=== PATIENT | male | born 1945 | race Caucasian/White ===

== ENCOUNTER 2017-07-11 09:36 | Inpatient (IN) | payer OTHER ==
[2017-07-11 14:21] VITALS: BMI 27.4
--- NOTE | 2017-07-11 14:56 | HP ---
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,seeking detox,withdrawal symptom ,last treatment 06/19 in [place] history of htn,hypercholestolemia,hepatitis c treated anxiety,depression longest period of sobriety 9 months Exam Limitations: No Limitations - Ebola screening Have you traveled outside of the country in the last 21 days: No (N) Have you had contact with anyone from an Ebola affected area: No Have you been sick,other than usual withdrawal symptoms: No Do you have a fever: No - Review of Systems Constitutional: Loss of Appetite, Malaise, Night Sweats, Changes in sleep, Weakness EENT: reports: No Symptoms Reported Respiratory: reports: No Symptoms reported Cardiac: reports: No Symptoms Reported GI: reports: Nausea, Poor Appetite, Abdominal cramping : reports: No Symptoms Reported Musculoskeletal: reports: Back Pain, Muscle Pain Integumentary: reports: Dryness Neuro: reports: Headache, Tremors Endocrine: reports: No Symptoms Reported Hematology: reports: No Symptoms Reported Psychiatric: reports: Anxious, Depressed Patient History - Patient Medical History Hx Anemia: No Hx Asthma: No Hx Chronic Obstructive Pulmonary Disease (COPD): No Hx Cancer: No Hx Cardiac Disorders: No Hx Congestive Heart Failure: No Hx Hypertension: Yes (on med) Hx Hypercholesterolemia: Yes (on med) Hx Pacemaker: No HX Cerebrovascular Accident: No Hx Seizures: No Hx Dementia: No Hx Diabetes: No Hx Gastrointestinal Disorders: No Hx Liver Disease: Yes (hepatitis c) Hx Genitourinary Disorders: No Hx Sexually Transmitted Disorders: No Hx Renal Disease (ESRD): No Hx Thyroid Disease: No Hx Human Immunodeficiency Virus (HIV): No (never been tested,wouild like to have test done) Hx Hepatitis C: Yes (treated) Hx Depression: Yes (anxiety) Hx Suicide Attempt: No Hx Bipolar Disorder: No Hx Schizophrenia: No Other Medical History: no suicidal,no homicidal - Patient Surgical History Hx Cardiac Surgery: Yes (ablation for tachycardia at [facility]) Hx Cholecystectomy: Yes (lap 05/20 at [facility]) Other Surgical History: back surgery last 2013,implanted device for nerve stimulation for back pain - PPD History Previous Implant?: Yes Documented Results: Negative w/o proof Implanted On Prior [facility] Admission?: No PPD to be Administered?: Yes - Smoking Cessation Smoking history: Never smoked Have you smoked in the past 12 months: No - Substance & Tx. History Hx Alcohol Use: No Hx Substance Use: Yes Substance Use Type: Tranquilizers Hx Substance Use Treatment: Yes (06/19 in [place]) - Substances Abused Benzodiazepine (Klonopin) Route: Oral Frequency: Daily Amount used: 1.5mg Age of first use: 63 Date of Last Use: 07/11/17 Family Disease History - Family Disease History Family History: Denies Admission Physical Exam S - Vital Signs Vital Signs: Vital Signs - 24 hr 07/11/17 14:18 Temperature 97.9 F Pulse Rate 81 Respiratory 18 Rate Blood Pressure 104/63 - Physical General Appearance: Yes: Moderate Distress, Tremorous, Irritable, Sweating, Anxious HEENTM: Yes: Normal ENT Inspection, AMBAR, Pharynx Normal Respiratory: Yes: Lungs Clear, Normal Breath Sounds, No Respiratory Distress Neck: Yes: Within Normal Limits, Supple, Trachea in good position Breast: Yes: Within Normal Limits Cardiology: Yes: Within Normal Limits (a/p ablation for tachycardia), Regular Rhythm, Regular Rate Abdominal: Yes: Normal Bowel Sounds, Non Tender, Flat, Soft, Organomegaly Genitourinary: Yes: Within Normal Limits Back: Yes: Normal Inspection, Muscle Spasm Musculoskeletal: Yes: full range of Motion, Back pain, Muscle Pain Extremities: Yes: Within Normal Limits, Tremors Neurological: Yes: swimming pool cleaner II-XII NML intact, Fully Oriented, Alert, Motor Strength 5/5 Integumentary: Yes: Dry Lymphatic: Yes: Within Normal Limits - Diagnostic (1) Uncomplicated sedative, hypnotic or anxiolytic withdrawal Current Visit: Yes Status: Acute (2) Hypertension Current Visit: Yes Status: Acute (3) Hypercholesterolemia Current Visit: Yes Status: Acute (4) Anxiety and depression Current Visit: Yes Status: Acute (5) History of laparoscopic cholecystectomy Current Visit: Yes Status: Acute (6) History of cardiac radiofrequency ablation Current Visit: Yes Status: Acute (7) History of back surgery Current Visit: Yes Status: Acute Cleared for Admission [facility] - Detox or Rehab [facility] Level of Care: Medically Managed Detox Regimen/Protocol: Librium (patient will be on librium regiment reduced dose) [facility] Breath Alcohol Content Breath Alcohol Content: 0 Urine Drug Screen - Results Drug Screen Negative: No Urine Drug Screen Results: BZO-Benzodiazepines
[2017-07-11] MEDS ORDERED: MAGNESIUM HYDROX 2400MG/30ML ORAL SUSPENSION 30 ML CUP PO PRN (16:11)
[2017-07-11] MEDS ORDERED: MAG HYDROX/AL HYDROX/SIMETH 30 ML UNIT-DOSE CUP PO PRN (16:11)
[2017-07-11] MEDS ORDERED: LOPERAMIDE HCL 2 MG CAPSULE PO PRN (16:11)
[2017-07-11] MEDS ORDERED: ACETAMINOPHEN 325 MG TABLET (FP) PO PRN (16:11)
[2017-07-11] MEDS ORDERED: MAGNESIUM CITRATE 300 ML BOTTLE PO PRN (16:11)
[2017-07-11] MEDS ORDERED: guaiFENesin/D-METHORPHAN HB 10 ML UNIT-DOSE CUPS PO PRN (16:11)
[2017-07-11] MEDS ORDERED: IBUPROFEN 400 MG TABLET (FP) PO PRN (16:11)
[2017-07-11] MEDS ORDERED: MENTHOL/PHENOL 1 EACH UD MM PRN (16:11)
[2017-07-11] MEDS ORDERED: P-EPHED 60MG/TRIPROLIDI 2.5MG TABLET PO PRN (16:11)
[2017-07-11] MEDS: chlordiazePOXIDE HCL 25 MG CAPSULE PO SCH ×2 (18:14→22:39)
[2017-07-11] MEDS: THIAMINE HCL 100 MG TABLET (FP) PO SCH (22:39)
[2017-07-12 05:09] LABS: URINE APPEARANCE CLEAR; URINE BILIRUBIN NEGATIVE (NEGATIVE); URINE BLOOD NEGATIVE (NEGATIVE); URINE COLOR YELLOW; URINE GLUCOSE (UA) NEGATIVE (NEGATIVE); URINE KETONE NEGATIVE (NEGATIVE); URINE LEUK ESTERASE NEGATIVE (NEGATIVE); URINE NITRITE NEGATIVE (NEGATIVE); URINE PROTEIN NEGATIVE (NEGATIVE); URINE UROBILINOGEN NEGATIVE mg/dL (0.2-1.0)
[2017-07-12] MEDS: chlordiazePOXIDE HCL 25 MG CAPSULE PO SCH ×4 (06:20→22:24)
[2017-07-12 10:18] LABS: CHLORIDE 106 mmol/L (98-107); POTASSIUM 3.8 mmol/L (3.5-5.1); SODIUM 143 mmol/L (136-145)
[2017-07-12 10:23] LABS: HEMATOCRIT 34.4 % (35.4-49); HEMOGLOBIN 11.4 GM/dL (11.7-16.9); MCH 27.2 pg (25.7-33.7); MCHC 33.1 g/dl (32.0-35.9); MEAN CELL VOLUME 82.2 fl (80-96); MEAN PLT VOLUME 8.9 fl (7.5-11.1); PLATELET COUNT 153 K/MM3 (134-434); RBC 4.19 M/mm3 (4.00-5.60); RDW 14.4 % (11.9-15.9); WHITE BLOOD COUNT 7.9 K/mm3 (4.0-10.0)
--- NOTE | 2017-07-12 10:24 | PN ---
S CIWA - CIWA Score Nausea/Vomitin Muscle Tremors: 3 Anxiety: 3 Agitation: 2 Paroxysmal Sweats: 1-Minimal Palms Moist Orientation: 0-Oriented Tacttile Disturbances: 1-Very Mild Itch/Numbness Auditory Disturbances: 1-Very Mild Visual Disturbances: 0-None Headache: 2-Mild CIWA-Ar Total Score: 16 BHS Progress Note (SOAP) Subjective: ALERT,IRRITABLE,ANXIOUS,INTERRUPTED SLEEP,TREMOR Objective: 07/12/17 10:22 Vital Signs Temperature 98.4 F 07/12/17 10:00 Pulse Rate 83 07/12/17 10:00 Respiratory Rate 20 07/12/17 10:00 Blood Pressure 126/76 07/12/17 10:00 O2 Sat by Pulse Oximetry (%) NSR WITH SINUS ARRHYTHMIA,OCCASIONAL VPC NO CHEST PAIN,NO SOB,NO DIZZINESS 07/12/17 10:23 Laboratory Last Values Sodium 143 mmol/L (136-145) 07/12/17 08:00 Potassium 3.8 mmol/L (3.5-5.1) 07/12/17 08:00 Chloride 106 mmol/L (98-107) 07/12/17 08:00 Urine Color Yellow 07/11/17 06:30 Urine Appearance Clear 07/11/17 06:30 Urine pH 6.0 (5.0-8.0) 07/11/17 06:30 Ur Specific [place] 1.009 (1.001-1.035) 07/11/17 06:30 Urine Protein Negative (NEGATIVE) 07/11/17 06:30 Urine Glucose (UA) Negative (NEGATIVE) 07/11/17 06:30 Urine Ketones Negative (NEGATIVE) 07/11/17 06:30 Urine Blood Negative (NEGATIVE) 07/11/17 06:30 Urine Nitrite Negative (NEGATIVE) 07/11/17 06:30 Urine Bilirubin Negative (NEGATIVE) 07/11/17 06:30 Urine Urobilinogen Negative mg/dL (0.2-1.0) 07/11/17 06:30 Ur Leukocyte Esterase Negative (NEGATIVE) 07/11/17 06:30 LABS PENDING Assessment: 07/12/17 10:24 WITHDRAWAL SYMPTOM Plan: CONTINUE DETOX
[2017-07-12 10:29] LABS: ALBUMIN 3.7 g/dl (3.4-5.0); ALK PHOS 94 U/L (45-117); ANION GAP 7 (8-16); BILIRUBIN,TOTAL 0.4 mg/dL (0.2-1.0); BLOOD UREA NITROGEN 20 mg/dL (7-18); CALCIUM 8.9 mg/dL (8.5-10.1); CO2 30 mmol/L (21-32); CREATININE 0.9 mg/dL (0.7-1.3); GLUCOSE,RANDOM 100 mg/dL (74-106); SGOT/AST 17 U/L (15-37); SGPT/ALT 26 U/L (12-78)
[2017-07-12] MEDS: PRENATAL VITAMINS W/ FOLIC ACID TABLET (FP) PO SCH (10:52)
[2017-07-12] MEDS: PANTOPRAZOLE 40 MG TABLET (FP) PO SCH (13:26)
[2017-07-12] MEDS: hydrOXYzine PAMOATE 50 MG CAPSULE (FP) PO PRN ×2 (14:21→22:25)
--- NOTE | 2017-07-12 14:44 | EKG ---
Test Reason : Blood Pressure : / mmHG Vent. Rate : 073 BPM Atrial Rate : 073 BPM P-R Int : 162 ms QRS Dur : 068 ms QT Int : 402 ms P-R-T Axes : 034 -55 042 degrees QTc Int : 442 ms SINUS RHYTHM WITH MARKED SINUS ARRHYTHMIA WITH OCCASIONAL PREMATURE VENTRICULAR COMPLEXES LEFT AXIS DEVIATION INFERIOR INFARCT (CITED ON OR BEFORE 11-JUL-2017) ANTEROLATERAL INFARCT , AGE UNDETERMINED ABNORMAL ECG Confirmed by Solomon Oneil MD ([id number]) on 07/12/2017 2:44:30 PM Referred By: Confirmed By:Solomon Oneil MD
--- NOTE | 2017-07-12 15:13 | CONSULT ---
[facility] Psychiatric Consult - Data Date of interview: 07/12/17 Admission source: [facility] Identifying data: Pt. is a 72 year old male, , father of one, and retired from the [employer]. [facility] Pt. admitted to for benzodiazepine dependence. Substance Abuse History: - Substances Abused. Benzodiazepine (Klonopin). Route: Oral. Frequency: Daily. Amount used: 1.5mg. Age of first use: 63. Date of Last Use: 07/11/17 Medical History: hypertension, Hep C, hypercholesterolemia, ablation for tachycardia, back surgery in 2013, implanted device for nerve stimulation for back pain. Cholecystectomy Psychiatric History: Pt. reports one psychiatric hospitalization in the at the [facility] in [facility] after reporting suicidal ideation. States he is currently seeing an outpatient psychiatrist by the name of Dr. Owen at the [facility]. 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 Pt. is currently prescribed zoloft 200mg po daily and buspar 10mg TID. States he has been on many psychiatric medications throughout the years but was medication noncompliant. Pt. now reports medication adherence with his zoloft and buspar for the previous six months. Pt. reports a diagnosis of PTSD, anxiety, and panic attacks. Pt. denies suicidal and homicidal ideation. Physical/Sexual Abuse/Trauma History: Denies. Mental Status Exam - Mental Status Exam Alert and Oriented to: Time, Place, Person Cognitive Function: Good Patient Appearance: Well Groomed Mood: Hopeful Affect: Mood Congruent Patient Behavior: Appropriate, Cooperative Speech Pattern: Appropriate Voice Loudness: Normal Thought Process: Goal Oriented Thought Disorder: Not Present Hallucinations: Denies Suicidal Ideation: Denies Homicidal Ideation: Denies Insight/Judgement: Poor Sleep: Fair Appetite: Fair Muscle strength/Tone: Normal Gait/Station: Normal Psychiatric Findings - Problem List ([place] 1, 2,3) (1) Uncomplicated sedative, hypnotic or anxiolytic withdrawal Current Visit: Yes Status: Acute (2) PTSD (post-traumatic stress disorder) Current Visit: Yes Status: Chronic Comment: Self reports. (3) Generalized anxiety disorder Current Visit: Yes Status: Chronic Comment: Self reports. (4) Panic attacks Current Visit: Yes Status: Chronic Comment: Self reports. - Initial Treatment Plan Initial Treatment Plan: Psychoeducation provided. Detoxification in progress. Zoloft 150mg po daily (reduce dosage) +buspar 15mg BID ordered. Verbal consent given. Pt. agreeable with plan. Benefits and side effects discussed. Will continue to monitor patient.
--- NOTE | 2017-07-12 15:19 | EKG ---
Test Reason : Blood Pressure : / mmHG Vent. Rate : 068 BPM Atrial Rate : 068 BPM P-R Int : 144 ms QRS Dur : 074 ms QT Int : 416 ms P-R-T Axes : 030 -52 033 degrees QTc Int : 442 ms SINUS RHYTHM WITH MARKED SINUS ARRHYTHMIA LEFT AXIS DEVIATION INFERIOR INFARCT , AGE UNDETERMINED ABNORMAL ECG NO PREVIOUS ECGS AVAILABLE Confirmed by Solomon Oneil MD ([id number]) on 07/12/2017 3:19:03 PM Referred By: Confirmed By:Solomon Oneil MD
[2017-07-12] MEDS: THIAMINE HCL 100 MG TABLET (FP) PO SCH (22:24)
[2017-07-13] MEDS: chlordiazePOXIDE HCL 25 MG CAPSULE PO SCH ×2 (05:33→10:50)
[2017-07-13] MEDS ORDERED: SERTRALINE HCL 50 MG TABLET (FP) PO SCH (10:00)
[2017-07-13] MEDS: PANTOPRAZOLE 40 MG TABLET (FP) PO SCH (10:50)
[2017-07-13] MEDS: PRENATAL VITAMINS W/ FOLIC ACID TABLET (FP) PO SCH (10:51)
[2017-07-13] MEDS: SERTRALINE HCL 50 MG TABLET (FP) PO SCH (10:52)
[2017-07-13] MEDS: LIDOCAINE 5% TOPICAL PATCH TP SCH (10:52)
--- NOTE | 2017-07-13 11:01 | PN ---
S CIWA - CIWA Score Nausea/Vomitin Muscle Tremors: 3 Anxiety: 3 Agitation: 3 Paroxysmal Sweats: 1-Minimal Palms Moist Orientation: 0-Oriented Tacttile Disturbances: 1-Very Mild Itch/Numbness Auditory Disturbances: 1-Very Mild Visual Disturbances: 0-None Headache: 2-Mild CIWA-Ar Total Score: 17 BHS Progress Note (SOAP) Subjective: ALERT,IRRITABLE,ANXIOUS,INTERRUPTED SLEEP,TREMOR Objective: 07/13/17 11:00 Vital Signs Temperature 98.3 F 07/13/17 07:28 Pulse Rate 74 07/13/17 07:28 Respiratory Rate 18 07/13/17 07:28 Blood Pressure 145/82 07/13/17 07:28 O2 Sat by Pulse Oximetry (%) Assessment: 07/13/17 11:00 Laboratory Last Values WBC 7.9 K/mm3 (4.0-10.0) 07/12/17 08:00 RBC 4.19 M/mm3 (4.00-5.60) 07/12/17 08:00 Hgb 11.4 GM/dL (11.7-16.9) L 07/12/17 08:00 Hct 34.4 % (35.4-49) L 07/12/17 08:00 MCV 82.2 fl (80-96) 07/12/17 08:00 MCH 27.2 pg (25.7-33.7) 07/12/17 08:00 MCHC 33.1 g/dl (32.0-35.9) 07/12/17 08:00 RDW 14.4 % (11.9-15.9) 07/12/17 08:00 Plt Count 153 K/MM3 (134-434) 07/12/17 08:00 MPV 8.9 fl (7.5-11.1) 07/12/17 08:00 Sodium 143 mmol/L (136-145) 07/12/17 08:00 Potassium 3.8 mmol/L (3.5-5.1) 07/12/17 08:00 Chloride 106 mmol/L (98-107) 07/12/17 08:00 Carbon Dioxide 30 mmol/L (21-32) 07/12/17 08:00 Anion Gap 7 (8-16) L 07/12/17 08:00 BUN 20 mg/dL (7-18) H 07/12/17 08:00 Creatinine 0.9 mg/dL (0.7-1.3) 07/12/17 08:00 Creat Clearance w eGFR > 60 (>60) 07/12/17 08:00 POC Glucometer 114 UNITS (80-120) 07/13/17 09:48 Random Glucose 100 mg/dL (74-106) 07/12/17 08:00 Calcium 8.9 mg/dL (8.5-10.1) 07/12/17 08:00 Total Bilirubin 0.4 mg/dL (0.2-1.0) 07/12/17 08:00 AST 17 U/L (15-37) 07/12/17 08:00 ALT 26 U/L (12-78) 07/12/17 08:00 Alkaline Phosphatase 94 U/L (45-117) 07/12/17 08:00 Total Protein 7.0 g/dl (6.4-8.2) 07/12/17 08:00 Albumin 3.7 g/dl (3.4-5.0) 07/12/17 08:00 Urine Color Yellow 07/11/17 06:30 Urine Appearance Clear 07/11/17 06:30 Urine pH 6.0 (5.0-8.0) 07/11/17 06:30 Ur Specific [place] 1.009 (1.001-1.035) 07/11/17 06:30 Urine Protein Negative (NEGATIVE) 07/11/17 06:30 Urine Glucose (UA) Negative (NEGATIVE) 07/11/17 06:30 Urine Ketones Negative (NEGATIVE) 07/11/17 06:30 Urine Blood Negative (NEGATIVE) 07/11/17 06:30 Urine Nitrite Negative (NEGATIVE) 07/11/17 06:30 Urine Bilirubin Negative (NEGATIVE) 07/11/17 06:30 Urine Urobilinogen Negative mg/dL (0.2-1.0) 07/11/17 06:30 Ur Leukocyte Esterase Negative (NEGATIVE) 07/11/17 06:30 RPR Titer Nonreactive (NONREACTIVE) 07/12/17 08:00 HIV 1&2 Antibody Screen Negative 07/12/17 08:00 HIV P24 Antigen Negative 07/12/17 08:00 07/13/17 11:01 WITHDRAWAL SYMPTOM Plan: CONTINUE DETOX,BGM MONITORING
[2017-07-13] MEDS: hydrOXYzine PAMOATE 50 MG CAPSULE (FP) PO PRN ×3 (12:15→22:39)
[2017-07-13] MEDS: chlordiazePOXIDE HCL 25 MG CAPSULE PO PRN (13:10)
[2017-07-13] MEDS: chlordiazePOXIDE 5 MG CAPSULE PO SCH ×2 (17:36→22:35)
[2017-07-13] MEDS: THIAMINE HCL 100 MG TABLET (FP) PO SCH (22:35)
[2017-07-13] MEDS: LIDOCAINE PATCH REMOVAL MC SCH (22:41)
[2017-07-14] MEDS: chlordiazePOXIDE 5 MG CAPSULE PO SCH ×2 (05:35→11:07)
--- NOTE | 2017-07-14 10:55 | PN ---
S Progress Note (SOAP) Subjective: ALERT,IRRITABLE,ANXIOUS,INTERRUPTED SLEEP Objective: 07/14/17 10:54 Vital Signs Temperature 98.2 F 07/14/17 10:08 Pulse Rate 67 07/14/17 10:08 Respiratory Rate 18 07/14/17 10:08 Blood Pressure 159/90 07/14/17 10:08 O2 Sat by Pulse Oximetry (%) Assessment: 07/14/17 10:54 WITHDRAWAL SYMPTOM Plan: CONTINUE DETOX,BGM IS 98,DISCHARGE IN AM
[2017-07-14] MEDS: SERTRALINE HCL 50 MG TABLET (FP) PO SCH (11:07)
[2017-07-14] MEDS: PRENATAL VITAMINS W/ FOLIC ACID TABLET (FP) PO SCH (11:07)
[2017-07-14] MEDS: hydrOXYzine PAMOATE 50 MG CAPSULE (FP) PO PRN ×3 (11:07→22:16)
[2017-07-14] MEDS: PANTOPRAZOLE 40 MG TABLET (FP) PO SCH (11:08)
[2017-07-14] MEDS: LIDOCAINE 5% TOPICAL PATCH TP SCH (11:18)
[2017-07-14] MEDS: chlordiazePOXIDE HCL 25 MG CAPSULE PO PRN (14:37)
[2017-07-14] MEDS: chlordiazePOXIDE HCL 10 MG CAPSULE PO SCH ×2 (17:46→22:16)
[2017-07-14] MEDS: THIAMINE HCL 100 MG TABLET (FP) PO SCH (22:16)
[2017-07-14] MEDS: LIDOCAINE PATCH REMOVAL MC SCH (22:17)
[2017-07-15] MEDS: chlordiazePOXIDE HCL 10 MG CAPSULE PO SCH ×2 (05:37→11:49)
--- NOTE | 2017-07-15 08:23 | DS ---
[facility] Detox Discharge Summary Admission Date: 07/11/17 Discharge Date: 07/15/17 - History Present History: Sedative Dependence Additional Comments: follow up with after care program as arrangement Pertinent Past History: hypertension hypercholesteolemia history of lap cholecystectomy history of cardiac ablation history of back surgery - Physical Exam Results Vital Signs: Vital Signs Temperature 97.3 F L 07/15/17 06:21 Pulse Rate 77 07/15/17 06:21 Respiratory Rate 18 07/15/17 06:21 Blood Pressure 146/87 07/15/17 06:21 O2 Sat by Pulse Oximetry (%) Pertinent Admission Physical Exam Findings: withdrawal symptom and finding - Treatment Hospital Course: Detox Protocol Followed, Detoxed Safely, Responded well, Discharged Condition Good Patient has Accepted a Rehab Referral to: declined - Medication Discharge Medications: Ambulatory Orders Ascorbic Acid [Vitamin C -] 500 mg PO BID 07/11/17 Buspirone HCl [Buspar -] 10 mg PO BID 07/11/17 Cholecalciferol (Vitamin D3) [Vitamin D3 -] 1,000 unit PO DAILY 07/11/17 Doxazosin Mesylate 8 mg PO DAILY 07/11/17 Hydrochlorothiazide [Hctz -] 25 mg PO DAILY 07/11/17 Omeprazole 20 mg PO DAILY 07/11/17 Sertraline HCl [Zoloft -] 200 mg PO DAILY 07/11/17 Simvastatin [Zocor -] 40 mg PO HS 07/11/17 - Diagnosis (1) Uncomplicated sedative, hypnotic or anxiolytic withdrawal Current Visit: Yes Status: Acute (2) Hypertension Current Visit: Yes Status: Acute (3) Hypercholesterolemia Current Visit: Yes Status: Acute (4) Anxiety and depression Current Visit: Yes Status: Acute (5) History of laparoscopic cholecystectomy Current Visit: Yes Status: Acute (6) History of cardiac radiofrequency ablation Current Visit: Yes Status: Acute (7) History of back surgery Current Visit: Yes Status: Acute - AMA Did Patient Leave Against Medical Advice: No
[2017-07-15] MEDS: SERTRALINE HCL 50 MG TABLET (FP) PO SCH (09:05)
[2017-07-15] MEDS: PANTOPRAZOLE 40 MG TABLET (FP) PO SCH (09:05)
[2017-07-15] MEDS: PRENATAL VITAMINS W/ FOLIC ACID TABLET (FP) PO SCH (09:05)
[2017-07-15] MEDS: LIDOCAINE 5% TOPICAL PATCH TP SCH (09:06)
[2017-07-15] MEDS: hydrOXYzine PAMOATE 50 MG CAPSULE (FP) PO PRN ×2 (09:08→13:08)
[2017-07-15 14:04] VITALS: BP 138/82; PULSE 85; TEMP 98.4
== END 2017-07-15 14:25 | disposition home or self-care (01) | DRG 897 ==
LOC: YASAS 09:36 → Y6N 16:11
PROVIDERS: ADMIT Internal Medicine; ATTEND Internal Medicine
PROC: HZ2ZZZZ Detoxification Services for Substance Abuse Treatment (ICD-10-PCS; principal; 2017-07-11)
DX: F13.230 Sedative, hypnotic or anxiolytic dependence with withdrawal, uncomplicated (principal); F41.0 Panic disorder [episodic paroxysmal anxiety]; F41.1 Generalized anxiety disorder; F41.8 Other specified anxiety disorders; F43.10 Post-traumatic stress disorder, unspecified; I10 Essential (primary) hypertension; E78.00 Pure hypercholesterolemia, unspecified
CPT/HCPCS: 36415; 80053; 81003; 82962; 85027; 86593; 87389; 93005; 93010

== ENCOUNTER 2019-09-18 11:30 | Inpatient (IN) | payer OTHER ==
[2019-12-26 14:38] VITALS: BMI 29.0
[2019-12-27] MEDS ORDERED: VANCOMYCIN 1,000 MG VIAL (RESTRICTED TO ID ONLY) ONE ×2 (07:27→07:43)
[2019-12-27] MEDS ORDERED: GENTAMICIN SO4 80 MG/2 ML VIAL ONE ×3 (07:27→10:46)
[2019-12-27] MEDS ORDERED: THROMBIN (BOVINE) 20,000 UNIT VIAL TP ONE ×3 (07:28→12:26)
[2019-12-27] MEDS ORDERED: fentaNYL CITRATE 250 MCG/5 ML VIAL ONE ×3 (07:36→22:32)
[2019-12-27] MEDS ORDERED: PROPOFOL 20 ML ONE (07:36)
[2019-12-27] MEDS ORDERED: ROCURONIUM BROMIDE 50 MG/5 ML SYRINGE ONE ×3 (07:37→13:37)
[2019-12-27] MEDS ORDERED: MIDAZOLAM HCL 2 MG/2 ML SINGLE DOSE VIAL ONE ×6 (07:37→10:55)
[2019-12-27] MEDS ORDERED: SUCCINYLCHOLINE CHLORIDE 200 MG/10 ML SYRINGE ONE (07:37)
--- NOTE | 2019-12-27 07:41 | HP ---
History & Physical Update - History History: No Change - Physical Physical: No Change - Assessment Assessment: No Change - Plan Plan: No Change (no changes since visit on 12/25/19)
[2019-12-27] MEDS ORDERED: LIDOCAINE HCL/PF 2% SDV 5ML VIAL ONE (07:43)
[2019-12-27] MEDS ORDERED: DEXAMETHASONE SOD PHOSPHATE 4 MG/1 ML VIAL ONE (07:43)
[2019-12-27] MEDS ORDERED: ONDANSETRON 4 MG/2 ML VIAL ONE (07:43)
[2019-12-27] MEDS ORDERED: ceFAZolin SODIUM 1 GM VIAL ONE ×2 (07:43→20:44)
[2019-12-27] MEDS ORDERED: BUPIVACAINE LIPOSOME/PF (EXPAREL) 266 MG/20 ML VIAL ONE (07:46)
[2019-12-27] MEDS ORDERED: LIDOCAINE 1%-EPI 1:100,000 30 ML MDV IJ ONE ×2 (08:11→08:21)
[2019-12-27] MEDS ORDERED: morphine SULFATE/PF 0.5 MG/ML (2cc Syringe - QUVA) ONE (08:17)
--- NOTE | 2019-12-27 09:19 | EKG ---
Test Reason : Blood Pressure : / mmHG Vent. Rate : 068 BPM Atrial Rate : 068 BPM P-R Int : 176 ms QRS Dur : 074 ms QT Int : 398 ms P-R-T Axes : 034 -45 035 degrees QTc Int : 423 ms SINUS RHYTHM WITH PREMATURE ATRIAL COMPLEXES IN A PATTERN OF BIGEMINY LEFT AXIS DEVIATION INFERIOR INFARCT (CITED ON OR BEFORE 11-JUL-2017) ANTEROLATERAL INFARCT (CITED ON OR BEFORE 12-JUL-2017) ABNORMAL ECG WHEN COMPARED WITH ECG OF 12-DEC-2019 13:47, PREMATURE VENTRICULAR COMPLEXES ARE NO LONGER PRESENT Confirmed by CASSIE RAMIREZ MD ([id number]) on 12/27/2019 9:19:01 AM Referred By: Confirmed By:CASSIE RAMIREZ MD
--- NOTE | 2019-12-27 10:17 | CON.CARD ---
Cardiology Consult (text) - Consultation Consultation Note: cc: elective spine surgery hpi: 74 m hx htn, hld, hx pacs and pvcs, svt s/p ablation 2017, here for elective spine surgery. No cp sob palps dizzy loc pnd orthopnea le edema. Sees cardio regularly, last visit about 6 mos ago, reported normal findings. Today got versed while starting anesthesia and noticed pacs in bigeminy on monitor so surgery postponed. Feeling well now. PACs on ecg and tele. pmh: per hpi psh: ablation social: ex tob fam: no premature cad scd ros: per hpi; back pain; all others wnl meds: Vital Signs Period Temp Pulse Resp BP Sys/Henry Pulse Ox Last 24 Hr 97.7 F 67-72 18-18 129-155/61-81 96-100 nad no jvd rrr s1s2 no mrg cta bl nl eff aao3 no le e/c/c abd nt nd pos bs no jaundice diaphoresis pos dp pt no carotid bruits Laboratory Last Values Blood Type B POSITIVE 12/27/19 06:10 Antibody Screen Negative 12/27/19 06:10 Crossmatch See Detail 12/27/19 06:10 ecg: sr pacs bigeminy, nl intervals, no ischemic changes tele: sr, occ pacs a/p: 74 m hx htn, hld, hx pacs and pvcs, svt s/p ablation 2017, here for elective spine surgery. abnl ecg: -ecg/tele showing occasional pacs, at times in bigeminy pattern. pt is asymptomatic from these. as per pmd notes pt has known hx of pacs/pvcs with nl lvef. This is benign and no further cardiac tx/testing needed at this time. No cardiac contraindications to proceeding with planned spine surgery. htn: -cont home meds hld: -cont home med svt s/p ablation: -in sr here -cont outpt cardio f/u
[2019-12-27] MEDS ORDERED: morphine SULFATE/PF 0.5 MG/ML (2cc Syringe - QUVA) IT ONE (11:20)
[2019-12-27] MEDS ORDERED: LIDOCAINE 1%/EPI 1:100000 (20 ML MULTI DOSE VIAL) IJ ONE (11:30)
[2019-12-27] MEDS ORDERED: ceFAZolin 2 GRAM PREMIX BAG IVPB ONE (11:30)
[2019-12-27] MEDS ORDERED: VANCOMYCIN 1,000 MG VIAL (RESTRICTED TO ID ONLY) IVPB ONE (11:30)
[2019-12-27] MEDS ORDERED: BACITRACIN 50,000 UNITS VIAL NR ONE (11:51)
[2019-12-27] MEDS ORDERED: GENTAMICIN SO4 80 MG/2 ML VIAL IVPB ONE (11:51)
[2019-12-27] MEDS ORDERED: THROMBIN (BOVINE) 5,000 UNIT VIAL TP ONE ×2 (11:51→12:34)
[2019-12-27] MEDS ORDERED: EPHEDRINE SULFATE/0.9% NACL/PF 50 MG/10 ML SYRINGE NR ONE (13:16)
[2019-12-27] MEDS ORDERED: BUPIVACAINE LIPOSOME/PF (EXPAREL) 266 MG/20 ML VIAL NR ONE ×2 (14:50)
[2019-12-27] MEDS ORDERED: BUPIVACAINE HCL/PF 0.5% (5MG/ML) 10 ML VIAL IJ ONE ×2 (14:50)
[2019-12-27] MEDS ORDERED: PROPOFOL 1,000,000 MCG/100 ML VIAL ONE (16:12)
[2019-12-27] MEDS ORDERED: ONDANSETRON 4 MG/2 ML VIAL IVPUSH PRN ×2 (16:15→16:24)
[2019-12-27] MEDS ORDERED: LACTATED RINGERS SOLUTION 1,000 ML IV SCH (16:15)
[2019-12-27] MEDS ORDERED: NALOXONE HCL 0.4 MG/ML VIAL IVPUSH PRN (16:15)
[2019-12-27] MEDS ORDERED: diphenhydrAMINE HCL 25 MG CAPSULE (FP) PO PRN (16:24)
[2019-12-27] MEDS ORDERED: PROPOFOL 1,000,000 MCG/100 ML VIAL IVPB SCH (16:30)
--- NOTE | 2019-12-27 16:49 | OP ---
Operative Note - Note: Operative Date: 12/27/19 Pre-Operative Diagnosis: lumbar spondylosis Operation: T12-S2 Laminectomies with L34, L45 and L5S1 transpedicular decompression and osteotomies and deformity correction T12-S2 pedicle screw fusion with athrodesis and interbody cage at L5-S1 Post-Operative Diagnosis: Same as Pre-op Surgeon: Stevan Chaney Guest Room Inspector: Jessica Downs Anesthesiologist/COMMERCIAL ADMINISTRATOR: Farida Menjivar Anesthesia: General, Spinal, Local Estimated Blood Loss (mls): 1,000 Drains & Tubes with Location: right Lumbar spine ADRIANE drain placed Drains, Volume Out (mls): 300 (hughes) Blood Volume Replaced (mls): 250 (1 Unit) Fluid Volume Replaced (mls): 3,000 Operative Report Dictated: Yes
[2019-12-27] MEDS ORDERED: ACETAMINOPHEN INJECTION 100 ML IVPB ONE (17:50)
[2019-12-27] MEDS ORDERED: ACETAMINOPHEN 1000 MG/100 ML VIAL (NON FORMULARY) IVPB ONE (17:51)
[2019-12-27 20:54] LABS: BASO % 0.1 % (0-2.0); HEMATOCRIT 32.3 % (35.4-49); HEMOGLOBIN 10.9 GM/dL (11.7-16.9); LYMPH % 3.6 % (8-40); MCH 29.7 pg (25.7-33.7); MCHC 33.6 g/dl (32.0-35.9); MEAN CELL VOLUME 88.2 fl (80-96); MEAN PLT VOLUME 9.2 fl (7.5-11.1); NEUT % 92.3 % (42.8-82.8); PLATELET COUNT 173 K/MM3 (134-434); RBC 3.66 M/mm3 (4.00-5.60); RDW 14.3 % (11.9-15.9); WHITE BLOOD COUNT 15.5 K/mm3 (4.0-10.0)
[2019-12-27] MEDS: CEFAZOLIN 1 GM in DEXTROSE 5%-WATER - 50 ML IVPB SCH (21:30)
[2019-12-27 21:33] LABS: ANISOCYTOSIS 0; MACROCYTOSIS 0; OVALOCYTE 1+; PLATELET ESTIMATE NORMAL
--- NOTE | 2019-12-27 22:08 | CONSULT ---
Consultation: REQUESTING PROVIDER: Orthopedic surgery CONSULT REQUEST: We have been asked to medically evaluate this patient for (lumbar spondylosis s/p T12-S2 Laminectomies, L34, L45 and L5S1 transpedicular decompression, osteotomies, deformity correction T12-S2 pedicle screw fusion with athrodesis/interbody cage at L5-S1). HISTORY OF PRESENT ILLNESS: 74 M, pmh of htn, hld, hx pacs and pvcs, svt s/p ablation 2016, presents to [facility] for elective spine surgery w/ Stevan Godfrey. Unable to verify further hx at this time as pt is sedated and vented from surgery. Upon chart review, pt was cleared by cardiology, w/ no cp, sob, palps, dizzy, loc, pnd, orthopnea le edema. Pt regularly f/u w/ cardio, last visit about 6 mos ago, reported normal findings. As per pmd notes, pt has known hx of pacs/pvcs with nl lvef. Pt received versed while starting anesthesia, noticed pacs in [facility] on monitor thus surgery postponed. Pt is now s/p surgery and remains vented and sedated in ICU. REVIEW OF SYSTEMS: unable to obtain as pt is vented and sedated. PHYSICAL EXAMINATION Vital Signs - 24 hr 12/27/19 12/27/19 12/27/19 06:43 08:46 09:00 Temperature 97.7 F Pulse Rate 70 72 Respiratory 18 18 Rate Blood Pressure 129/61 129/66 O2 Sat by Pulse 100 99 97 Oximetry (%) GENERAL: sedated and vented EYES: Pupils equal, round and reactive to light, extraocular movements intact, sclera anicteric, waking up EARS, NOSE, THROAT: Moist mucous membranes. NECK: Normal range of motion, supple without lymphadenopathy, JVD, or masses. LUNGS: breath sounds decreased on the left side compared to right. HEART: Regular rate and irregular rhythm, normal S1 and S2 without murmur, rub or gallop. ABDOMEN: Soft, nontender, not distended, normoactive bowel sounds, no guarding, no rebound, no masses. UPPER EXTREMITIES: 2+ pulses, warm, well-perfused. No cyanosis. No peripheral edema. LOWER EXTREMITIES: 2+ pulses, warm, well-perfused. No peripheral edema. NEUROLOGICAL: sedated, vented, waking up slowly SKIN: Warm, dry, normal turgor, no rashes or lesions noted. Laboratory Results - last 24 hr 12/27/19 12/27/19 06:10 20:30 WBC 15.5 H RBC 3.66 L Hgb 10.9 L Hct 32.3 L MCV 88.2 MCH 29.7 MCHC 33.6 RDW 14.3 Plt Count 173 MPV 9.2 Absolute Neuts (auto) 14.3 H Neutrophils % 92.3 H D Neutrophils % (Manual) 85.1 H Band Neutrophils % 7.9 Lymphocytes % 3.6 L D Lymphocytes % (Manual) 2.0 L Monocytes % 4.0 Monocytes % (Manual) 4 Eosinophils % 0.0 D Eosinophils % (Manual) 0.0 Basophils % 0.1 Basophils % (Manual) 1.0 Myelocytes % (Man) 0 Promyelocytes % (Man) 0 Blast Cells % (Manual) 0 Nucleated RBC % 0 Metamyelocytes 0 Hypochromia 1+ Platelet Estimate Normal Polychromasia 1+ Poikilocytosis 1+ Anisocytosis 0 Microcytosis 0 Macrocytosis 0 Ovalocytes 1+ Blood Type B POSITIVE Antibody Screen Negative Crossmatch See Detail Active Medications Generic Name Dose Route Start Last Admin Trade Name Freq PRN Reason Stop Dose Admin Acetaminophen 650 mg 12/27/19 16:15 Tylenol - PO Q6H [facility] Ascorbic Acid 500 mg 12/27/19 22:00 Vitamin C - PO BID [facility] Atorvastatin Calcium 40 mg 12/27/19 22:00 Lipitor - PO HS [facility] Chlorhexidine Gluconate 1 applic 12/27/19 22:00 Hibiclens For Decolonization - TP HS [facility] Clonazepam 1 mg 12/27/19 22:00 Klonopin - PO BID [facility] Dicyclomine HCl 10 mg 12/27/19 22:00 Bentyl - PO BID [facility] Diphenhydramine HCl 25 mg 12/27/19 16:15 Benadryl Injection - IVPUSH ONCE PRN FOR ITCHING Diphenhydramine HCl 25 mg 12/27/19 16:24 Benadryl - PO Q6H PRN FOR ITCHING Docusate Sodium 100 mg 12/27/19 22:00 Colace - PO TID [facility] Fentanyl 25 mcg 12/27/19 18:25 12/27/19 19:10 Sublimaze Injection - IVPUSH 25 mcg [id number] PRN Administration PAIN-PACU ORDER X 4 DOSES ONLY Ferrous Sulfate 325 mg 12/28/19 08:00 Feosol - PO DAILY@0800 [facility] Folic Acid 1 mg 12/28/19 10:00 Folic Acid - PO DAILY [facility] Gabapentin 200 mg 12/27/19 22:00 Neurontin - PO BID [facility] Heparin Sodium (Porcine) 5,000 unit 12/28/19 10:00 Heparin - SQ Q8H [facility] Hydrochlorothiazide 25 mg 12/28/19 10:00 Hctz - PO DAILY [facility] Propofol 1,000,000 mcg in 100 mls @ 2.449 mls/hr 12/27/19 16:30 12/27/19 16:30 Diprivan - IVPB 0 mls TITR [facility] Administration Protocol 5 MCG/KG/MIN Lactated Ringer's 1,000 ml in 1,000 mls @ 75 mls/hr 12/27/19 16:30 Lactated Ringers Solution IV ASDIR [facility] Cefazolin Sodium 1 gm/ 50 mls @ 100 mls/hr 12/27/19 22:00 Dextrose IVPB TID [facility] Multivitamins/Minerals/Vitamin C 1 tab 12/28/19 10:00 Tab-A-Vit - PO DAILY [facility] Mupirocin 1 applic 12/27/19 22:00 Bactroban Ointment (For Decolonization) - NS 01/01/20 21:59 BID [facility] Naloxone HCl 0.4 mg 12/27/19 16:15 Narcan - IVPUSH ONCE PRN Sedation Ondansetron HCl 4 mg 12/27/19 16:24 Zofran Injection IVPUSH Q6H PRN NAUSEA Oxycodone HCl 10 mg 12/28/19 16:17 Oxycontin - PO BID [facility] Pantoprazole Sodium 20 mg 12/28/19 10:00 Protonix - PO DAILY [facility] Tamsulosin HCl 0.4 mg 12/28/19 08:30 Flomax - PO 0830 [facility] Venlafaxine HCl 75 mg 12/27/19 22:00 Effexor Xr - PO BID [facility] ASSESSMENT/PLAN: 74 M, pmh of htn, hld, hx pacs and pvcs, svt s/p ablation 2016, presents to [facility] for elective spine surgery w/ Stevan Godfrey for lumbar spondylosis s/p T12-S2 Laminectomies, decompression, osteotomies, deformity correction, screw fusion is admitted for ICU monitoring post op #Neuro remains vented and sedated Propofol 30 Will start fentalyn, reassess in the morning to wake pt up oxycodone for pain management as per surgery gabapentin Narcan given once Tylenol Q6H #Pulmonary Earlier CXR showed ETT in the right mainstem bronchus, decreased breath sounds on left R/p CXR shows ETT in remains in the right bronchus, will pull back 3-4 cm AC 12/500/40/5, will wean tidal volume down R/p CXR to confirm placement #CV cont IVF LR at 75 EKG shows pacs in [place], as per PMD, pt has normal pacs and LV function is wnl HCTZ 25 Lipitor 40 #GI protonix zofran docusate #ID leukocytosis likely reactive to surgery Cefazolin can d/c after 24hrs if warranted #Derm Benadryl for itching # flomax #Psych unable to verify dx effexor Klonopin #Heme Normocytic anemia cont ferrous sulfate cont folic acid #DVT hep sq #GI ppx Protonix FEN cont LR at 75 monitor lytes Clear liquid diet, NGT for meds for now Dispo: We will continue to follow the patient. Thank you for this consultative opportunity. Rest as per surgery Visit type - Emergency Visit Emergency Visit: Yes ED Registration Date: 12/27/19 Care time: The patient presented to the Emergency Department on the above date and was hospitalized for further evaluation of their emergent condition. - New Patient This patient is new to me today: Yes Date on this admission: 12/31/19 - Critical Care Critical Care patient: No ATTENDING PHYSICIAN STATEMENT I saw and evaluated the patient. I reviewed the resident's note and discussed the case with the resident. I agree with the resident's findings and plan as documented. SUBJECTIVE: OBJECTIVE: ASSESSMENT AND PLAN:
[2019-12-27] MEDS: LACTATED RINGERS SOLUTION 1,000 ML/1,000 ML INFUS.BAG IV SCH (22:09)
[2019-12-27] MEDS ORDERED: FENTANYL NS IVPB 500 MCG/100 ML BAG IVPB SCH (22:45)
[2019-12-27] MEDS: ACETAMINOPHEN 325 MG TABLET (FP) PO SCH (23:04)
[2019-12-27] MEDS: MUPIROCIN 2% TOPICAL OINTMENT FOR DECOLONIZATION NS SCH (23:04)
[2019-12-28 01:12] LABS: BLOOD UREA NITROGEN 21.8 mg/dL (7-18); CALCIUM 7.2 mg/dL (8.5-10.1); CREATININE 0.9 mg/dL (0.55-1.3)
[2019-12-28] MEDS: DOCUSATE SODIUM 100 MG CAPSULE (FP) PO SCH ×4 (03:27→22:03)
[2019-12-28] MEDS: clonazePAM 0.5 MG TABLET PO SCH ×3 (03:27→22:04)
[2019-12-28] MEDS: DICYCLOMINE HCL 10 MG CAPSULE PO SCH ×3 (03:27→22:59)
[2019-12-28] MEDS: VENLAFAXINE HCL 75 MG E.R. CAPSULES PO SCH ×3 (03:27→22:59)
[2019-12-28] MEDS: ATORVASTATIN CA 40 MG TABLET (FP) PO SCH ×2 (03:28→22:04)
[2019-12-28] MEDS: ASCORBIC ACID 500 MG TABLET (FP) PO SCH ×3 (03:28→22:05)
[2019-12-28] MEDS: GABAPENTIN 100 MG CAPSULE PO SCH ×3 (03:28→22:04)
[2019-12-28] MEDS ORDERED: ceFAZolin SODIUM 1 GM VIAL ONE ×3 (04:42→21:37)
[2019-12-28] MEDS ORDERED: DEXTROSE 5%-WATER - 50 ML IVPB ONE ×3 (04:43→21:37)
[2019-12-28] MEDS: ACETAMINOPHEN 325 MG TABLET (FP) PO SCH ×5 (05:03→23:00)
[2019-12-28] MEDS: CEFAZOLIN 1 GM in DEXTROSE 5%-WATER - 50 ML IVPB SCH ×3 (05:04→22:02)
--- NOTE | 2019-12-28 05:55 | PN ---
Progress Note, Physician Chief Complaint: S/p laminectomy Intubated, sedated on vent. FiO2 40% History of Present Illness: History of SVT with prior ablation TELE: Irregular- SR with frequent APCs vs AF difficult to determine. Needs 12 lead ECG - Current Medication List Current Medications: Active Medications Acetaminophen (Tylenol -) 650 mg PO Q6H [facility] Last Admin: 12/28/19 05:52 Dose: Not Given Documented by: Ascorbic Acid (Vitamin C -) 500 mg PO BID [facility] Last Admin: 12/28/19 03:28 Dose: Not Given Documented by: Atorvastatin Calcium (Lipitor -) 40 mg PO HS [facility] Last Admin: 12/28/19 03:28 Dose: Not Given Documented by: Chlorhexidine Gluconate (Hibiclens For Decolonization -) 1 applic TP [facility] Clonazepam (Klonopin -) 1 mg PO BID [facility] Last Admin: 12/28/19 03:27 Dose: Not Given Documented by: Dicyclomine HCl (Bentyl -) 10 mg PO BID [facility] Last Admin: 12/28/19 03:27 Dose: Not Given Documented by: Diphenhydramine HCl (Benadryl Injection -) 25 mg IVPUSH ONCE PRN PRN Reason: FOR ITCHING Diphenhydramine HCl (Benadryl -) 25 mg PO Q6H PRN PRN Reason: FOR ITCHING Docusate Sodium (Colace -) 100 mg PO TID [facility] Last Admin: 12/28/19 05:04 Dose: Not Given Documented by: Fentanyl (Sublimaze Injection -) 25 mcg IVPUSH [id number] PRN PRN Reason: PAIN-PACU ORDER X 4 DOSES ONLY Last Admin: 12/27/19 19:10 Dose: 25 mcg Documented by: Ferrous Sulfate (Feosol -) 325 mg PO DAILY@0800 [facility] Folic Acid (Folic Acid -) 1 mg PO DAILY [facility] Gabapentin (Neurontin -) 200 mg PO BID [facility] Last Admin: 12/28/19 03:28 Dose: Not Given Documented by: Heparin Sodium (Porcine) (Heparin -) 5,000 unit SQ Q8H [facility] Hydrochlorothiazide (Hctz -) 25 mg PO DAILY [facility] Propofol (Diprivan -) 1,000,000 mcg in 100 mls @ 2.449 mls/hr IVPB TITR [facility]; Protocol Last Admin: 12/27/19 16:30 Dose: 24 mls Documented by: Lactated Ringer's (Lactated Ringers Solution) 1,000 ml in 1,000 mls @ 75 mls/hr IV ASDIR [facility] Last Admin: 12/27/19 22:09 Dose: 333 mls Documented by: Cefazolin Sodium 1 gm/ (Dextrose) 50 mls @ 100 mls/hr IVPB TID [facility] Last Admin: 12/28/19 05:04 Dose: 100 mls/hr Documented by: Fentanyl (Sublimaze Ivpb) 500 mcg in 100 mls @ 16.329 mls/hr IVPB TITR [facility]; Protocol Stop: 12/28/19 22:44 Last Admin: 12/27/19 23:18 Dose: 1 mcg/kg/hr, 16.329 mls/hr Documented by: Multivitamins/Minerals/Vitamin C (Tab-A-Vit -) 1 tab PO DAILY [facility] Mupirocin (Bactroban Ointment (For Decolonization) -) 1 applic NS BID [facility] Stop: 01/01/20 21:59 Last Admin: 12/27/19 23:04 Dose: 1 applic Documented by: Naloxone HCl (Narcan -) 0.4 mg IVPUSH ONCE PRN PRN Reason: Sedation Ondansetron HCl (Zofran Injection) 4 mg IVPUSH Q6H PRN PRN Reason: NAUSEA Oxycodone HCl (Oxycontin -) 10 mg PO BID [facility] Pantoprazole Sodium (Protonix -) 20 mg PO DAILY [facility] Tamsulosin HCl (Flomax -) 0.4 mg PO 0830 [facility] Venlafaxine HCl (Effexor Xr -) 75 mg PO BID [facility] Last Admin: 12/28/19 03:27 Dose: Not Given Documented by: - Objective Vital Signs: Vital Signs Temperature 97.8 F 12/28/19 02:00 Pulse Rate 66 12/28/19 04:00 Respiratory Rate 14 12/28/19 05:00 Blood Pressure 100/53 L 12/28/19 04:00 O2 Sat by Pulse Oximetry (%) 100 12/28/19 05:00 Constitutional: Yes: Other (intubated, sedated) Cardiovascular: Yes: Pulse Irregular Respiratory: Yes: Other (= breath sounds bilaterally) Gastrointestinal: Yes: Soft Edema: No Labs: CBC, BMP 12/27/19 20:30 06/26/20 00:30 Laboratory Tests 12/28/19 12/28/19 06:05 06:05 WBC 13.0 H Hgb 10.1 L Plt Count 156 Sodium 143 Potassium 4.0 Creatinine 0.9 - ....Imaging EKG: Image Reviewed Assessment/Plan a/p: 74 m hx htn, hld, hx pacs and pvcs, svt s/p ablation 2017, s/p elective spine surgery. abnl ecg: -On tele difficult to distinguish if NSR with frequent APCS vs AF. -Needs 12 lead ECG, will order. htn: -cont home meds hld: -cont home med svt s/p ablation: -has been in sr here s/p laminectomy: -Post op management as per Critical Care an Neurosurgery
[2019-12-28 06:33] LABS: HEMATOCRIT 30.4 % (35.4-49); HEMOGLOBIN 10.1 GM/dL (11.7-16.9); MCH 29.5 pg (25.7-33.7); MCHC 33.3 g/dl (32.0-35.9); MEAN CELL VOLUME 88.6 fl (80-96); PLATELET COUNT 156 K/MM3 (134-434); RBC 3.43 M/mm3 (4.00-5.60); RDW 14.4 % (11.9-15.9)
[2019-12-28 06:58] LABS: BLOOD UREA NITROGEN 20.4 mg/dL (7-18); CALCIUM 7.5 mg/dL (8.5-10.1); CREATININE 0.9 mg/dL (0.55-1.3)
[2019-12-28] MEDS: FERROUS SO4 325 MG TABLET (FP) PO SCH (08:42)
[2019-12-28] MEDS: TAMSULOSIN HCL 0.4 MG CAP PO SCH (08:42)
--- NOTE | 2019-12-28 09:12 | PN ---
Progress Note (short form) - Note Progress Note: Surgery POD #1 T12-S2 Laminectomies with L34, L45 and L5S1 transpedicular decompression and osteotomies and deformity correction T12-S2 pedicle screw fusion with athrodesis and interbody cage at L5-S1. seen on AM rounds. Patient received 1 unit of PRBC in the OR and remained intubated overnight. No nursing reports no overnight issues. Vital Signs Temp 98.4 F 12/28/19 10:00 Pulse 94 H 12/28/19 12:00 Resp 23 H 12/28/19 12:00 BP 151/63 12/28/19 12:00 Pulse Ox 100 12/28/19 09:00 Intake & Output 12/27/19 12/28/19 12/28/19 23:59 11:59 23:59 Intake Total 2057 1445 Output Total 1005 450 80 Balance 1052 995 -80 Weight 180 lb Intake: IV 1357 1245 DIPRIVAN - 1,000,000 mcg 119 In 100 ml @ 5 MCG/KG/MIN 2.449 mls/hr IVPB TITR [facility] Rx#:[id number] LACTATED RINGERS SOLUTION 1005 1,000 ml In 1,000 ml @ 75 mls/hr IV ASDIR [facility] Rx #:[id number] SUBLIMAZE IVPB 500 mcg In 121 100 ml @ 1 MCG/KG/HR 16. 329 mls/hr IVPB TITR [facility] Rx#:[id number] IVPB 200 Blood Product 700 Output: Drainage 505 200 80 Back 200 80 Urine 500 250 Anna 250 Other: Voiding Method Indwelling Catheter Indwelling Catheter Bowel Movement No Height 5 ft 6 in Body Mass Index (BMI) 29.0 CBC, BMP 12/28/19 06:05 12/28/19 06:05 PE: NAD Intubated on a vent, unlabored resp ABD: Soft, ND B/L LE compartments soft, supple with +DP pulses Problem List - Problems (1) S/P laminectomy Assessment/Plan: 74yo s/p multilevel decompression and fusion with re-op stable. Team plans to wean to extubate this morning. -DVT prophylaxis -OOB with TLSO brace -Pain control -OOB with PT -Monitor drain -surgery to follow Evaluation and plan discussed with Dr Chaney Code(s): Z98.890 - OTHER SPECIFIED POSTPROCEDURAL STATES
[2019-12-28] MEDS ORDERED: HYDROCHLOROTHIAZIDE 25 MG TABLET (FP) PO SCH (10:00)
[2019-12-28] MEDS: MUPIROCIN 2% TOPICAL OINTMENT FOR DECOLONIZATION NS SCH ×2 (10:50→22:03)
[2019-12-28] MEDS: HEPARIN NA (PORCINE) 5,000 UNITS/ML 1ML VIAL SQ SCH ×3 (11:50→18:34)
[2019-12-28] MEDS: PANTOPRAZOLE 20 MG TABLET PO SCH (12:00)
--- NOTE | 2019-12-28 12:07 | PN ---
Progress Note, Physician History of Present Illness: Pt seen/ examined in icu chart is reviewed pod # 1 - Laminectomy Intubated Arousable comfortable - Current Medication List Current Medications: Active Medications Acetaminophen (Tylenol -) 650 mg PO Q6H [facility] Last Admin: 12/28/19 05:52 Dose: Not Given Documented by: Ascorbic Acid (Vitamin C -) 500 mg PO BID [facility] Last Admin: 12/28/19 03:28 Dose: Not Given Documented by: Atorvastatin Calcium (Lipitor -) 40 mg PO HS [facility] Last Admin: 12/28/19 03:28 Dose: Not Given Documented by: Chlorhexidine Gluconate (Hibiclens For Decolonization -) 1 applic TP [facility] Clonazepam (Klonopin -) 1 mg PO BID [facility] Last Admin: 12/28/19 03:27 Dose: Not Given Documented by: Dicyclomine HCl (Bentyl -) 10 mg PO BID [facility] Last Admin: 12/28/19 03:27 Dose: Not Given Documented by: Diphenhydramine HCl (Benadryl Injection -) 25 mg IVPUSH ONCE PRN PRN Reason: FOR ITCHING Diphenhydramine HCl (Benadryl -) 25 mg PO Q6H PRN PRN Reason: FOR ITCHING Docusate Sodium (Colace -) 100 mg PO TID [facility] Last Admin: 12/28/19 05:04 Dose: Not Given Documented by: Fentanyl (Sublimaze Injection -) 25 mcg IVPUSH [id number] PRN PRN Reason: PAIN-PACU ORDER X 4 DOSES ONLY Last Admin: 12/27/19 19:10 Dose: 25 mcg Documented by: Ferrous Sulfate (Feosol -) 325 mg PO DAILY@0800 [facility] Last Admin: 12/28/19 08:42 Dose: Not Given Documented by: Folic Acid (Folic Acid -) 1 mg PO DAILY [facility] Gabapentin (Neurontin -) 200 mg PO BID [facility] Last Admin: 12/28/19 03:28 Dose: Not Given Documented by: Heparin Sodium (Porcine) (Heparin -) 5,000 unit SQ Q8H [facility] Hydrochlorothiazide (Hctz -) 25 mg PO DAILY [facility] Propofol (Diprivan -) 1,000,000 mcg in 100 mls @ 2.449 mls/hr IVPB TITR [facility]; Protocol Last Admin: 12/27/19 16:30 Dose: 24 mls Documented by: Lactated Ringer's (Lactated Ringers Solution) 1,000 ml in 1,000 mls @ 75 mls/hr IV ASDIR [facility] Last Admin: 12/27/19 22:09 Dose: 333 mls Documented by: Cefazolin Sodium 1 gm/ (Dextrose) 50 mls @ 100 mls/hr IVPB TID [facility] Last Admin: 12/28/19 05:04 Dose: 100 mls/hr Documented by: Fentanyl (Sublimaze Ivpb) 500 mcg in 100 mls @ 16.329 mls/hr IVPB TITR [facility]; Protocol Stop: 12/28/19 22:44 Last Admin: 12/27/19 23:18 Dose: 1 mcg/kg/hr, 16.329 mls/hr Documented by: Multivitamins/Minerals/Vitamin C (Tab-A-Vit -) 1 tab PO DAILY [facility] Mupirocin (Bactroban Ointment (For Decolonization) -) 1 applic NS BID [facility] Stop: 01/01/20 21:59 Last Admin: 12/28/19 10:50 Dose: 1 applic Documented by: Naloxone HCl (Narcan -) 0.4 mg IVPUSH ONCE PRN PRN Reason: Sedation Ondansetron HCl (Zofran Injection) 4 mg IVPUSH Q6H PRN PRN Reason: NAUSEA Oxycodone HCl (Oxycontin -) 10 mg PO BID [facility] Pantoprazole Sodium (Protonix -) 20 mg PO DAILY [facility] Tamsulosin HCl (Flomax -) 0.4 mg PO 0830 [facility] Last Admin: 12/28/19 08:42 Dose: Not Given Documented by: Venlafaxine HCl (Effexor Xr -) 75 mg PO BID [facility] Last Admin: 12/28/19 03:27 Dose: Not Given Documented by: - Objective Vital Signs: Vital Signs Temperature 98.4 F 12/28/19 10:00 Pulse Rate 79 12/28/19 10:00 Respiratory Rate 25 H 12/28/19 10:00 Blood Pressure 131/65 12/28/19 10:00 O2 Sat by Pulse Oximetry (%) 100 12/28/19 09:00 Constitutional: Yes: No Distress Eyes: Yes: Conjunctiva Clear Neck: Yes: Other (Intubated) Cardiovascular: Yes: Regular Rate and Rhythm Respiratory: Yes: CTA Bilaterally Gastrointestinal: Yes: Soft Edema: No Labs: CBC, BMP 12/28/19 06:05 12/28/19 06:05 Problem List - Problems (1) S/P laminectomy Assessment/Plan: icu intubated pain control weaning as tolerated icu team following Problems reviewed: Yes Code(s): Z98.890 - OTHER SPECIFIED POSTPROCEDURAL STATES (2) Hepatitis C Assessment/Plan: s/p treatment Problems reviewed: Yes Code(s): B19.20 - UNSPECIFIED VIRAL HEPATITIS C WITHOUT HEPATIC COMA (3) History of cholecystectomy Assessment/Plan: no active issues Problems reviewed: Yes Code(s): Z90.49 - ACQUIRED ABSENCE OF OTHER SPECIFIED PARTS OF DIGESTIVE TRACT (4) History of penile implant Assessment/Plan: No active issues Problems reviewed: Yes Code(s): Z96.0 - PRESENCE OF UROGENITAL IMPLANTS (5) History of cardiac radiofrequency ablation Assessment/Plan: cardiology following Code(s): Z98.890 - OTHER SPECIFIED POSTPROCEDURAL STATES (6) Hypertension Assessment/Plan: Monitor Problems reviewed: Yes Code(s): I10 - ESSENTIAL (PRIMARY) HYPERTENSION (7) Generalized anxiety disorder Problems reviewed: Yes Code(s): F41.1 - GENERALIZED ANXIETY DISORDER (8) PTSD (post-traumatic stress disorder) Problems reviewed: Yes Code(s): F43.10 - POST-TRAUMATIC STRESS DISORDER, UNSPECIFIED
[2019-12-28] MEDS: MULTIVITAMINS (DAILY MVI) TABLET (FP) PO SCH (12:31)
[2019-12-28] MEDS: HYDROCHLOROTHIAZIDE 25 MG TABLET (FP) PO SCH (12:32)
[2019-12-28] MEDS: FOLIC ACID 1 MG TABLET (FP) PO SCH (12:32)
[2019-12-28] MEDS: LACTATED RINGERS SOLUTION 1,000 ML/1,000 ML INFUS.BAG IV SCH ×2 (12:51→18:27)
--- NOTE | 2019-12-28 14:07 | PN ---
Physical Exam: SUBJECTIVE: Patient seen and examined at bedside. He was admitted overnight. This AM he is intubated, sedated, and unable to participate in medical interview. OBJECTIVE: Vital Signs Period Temp Pulse Resp BP Sys/Henry Pulse Ox Last 24 Hr 97.2 F-98.6 F 66-94 8-28 76-151/45-91 36-100 GENERAL: The patient is intubated and sedated HEAD: Normal with no signs of trauma. EYES: IRVIN, No ptosis. ENT: Ears normal, nares patent, ETT in place NECK: Trachea midline, full range of motion, supple. LUNGS: Breath sounds equal, clear to auscultation bilaterally, no wheezes, no crackles, no accessory muscle use. HEART: Regular rate and rhythm, S1, S2 without murmur, rub or gallop. ABDOMEN: Soft, nontender, nondistended, normoactive bowel sounds, no guarding, no rebound, no hepatosplenomegaly, no masses. EXTREMITIES: 2+ pulses, warm, well-perfused, no edema. NEUROLOGICAL: Cranial nerves II through XII grossly intact. Normal speech, gait not observed. SKIN: Large tattoo on RIGHT arm. Warm, dry, normal turgor, no rashes or lesions noted Laboratory Results - last 24 hr 12/27/19 12/27/19 12/28/19 06:10 20:30 00:30 WBC 15.5 H RBC 3.66 L Hgb 10.9 L Hct 32.3 L MCV 88.2 MCH 29.7 MCHC 33.6 RDW 14.3 Plt Count 173 MPV 9.2 Absolute Neuts (auto) 14.3 H Neutrophils % 92.3 H D Neutrophils % (Manual) 85.1 H Band Neutrophils % 7.9 Lymphocytes % 3.6 L D Lymphocytes % (Manual) 2.0 L Monocytes % 4.0 Monocytes % (Manual) 4 Eosinophils % 0.0 D Eosinophils % (Manual) 0.0 Basophils % 0.1 Basophils % (Manual) 1.0 Myelocytes % (Man) 0 Promyelocytes % (Man) 0 Blast Cells % (Manual) 0 Nucleated RBC % 0 Metamyelocytes 0 Hypochromia 1+ Platelet Estimate Normal Polychromasia 1+ Poikilocytosis 1+ Anisocytosis 0 Microcytosis 0 Macrocytosis 0 Ovalocytes 1+ Sodium 143 Potassium 4.0 Chloride 110 H Carbon Dioxide 26 Anion Gap 6 L BUN 21.8 H Creatinine 0.9 Est GFR (CKD-EPI)AfAm 98.55 Est GFR (CKD-EPI)NonAf 85.03 Random Glucose 128 H Calcium 7.2 L Blood Type B POSITIVE Antibody Screen Negative Crossmatch See Detail 12/28/19 12/28/19 06:05 06:05 WBC 13.0 H RBC 3.43 L Hgb 10.1 L Hct 30.4 L MCV 88.6 MCH 29.5 MCHC 33.3 RDW 14.4 Plt Count 156 MPV 9.0 Absolute Neuts (auto) Neutrophils % Neutrophils % (Manual) Band Neutrophils % Lymphocytes % Lymphocytes % (Manual) Monocytes % Monocytes % (Manual) Eosinophils % Eosinophils % (Manual) Basophils % Basophils % (Manual) Myelocytes % (Man) Promyelocytes % (Man) Blast Cells % (Manual) Nucleated RBC % Metamyelocytes Hypochromia Platelet Estimate Polychromasia Poikilocytosis Anisocytosis Microcytosis Macrocytosis Ovalocytes Sodium 143 Potassium 4.0 Chloride 109 H Carbon Dioxide 30 Anion Gap 4 L BUN 20.4 H Creatinine 0.9 Est GFR (CKD-EPI)AfAm 98.55 Est GFR (CKD-EPI)NonAf 85.03 Random Glucose 124 H Calcium 7.5 L Blood Type Antibody Screen Crossmatch Active Medications Generic Name Dose Route Start Last Admin Trade Name Freq PRN Reason Stop Dose Admin Acetaminophen 650 mg 12/27/19 16:15 12/28/19 12:31 Tylenol - PO Not Given Q6H [facility] Ascorbic Acid 500 mg 12/27/19 22:00 12/28/19 12:31 Vitamin C - PO Not Given BID [facility] Atorvastatin Calcium 40 mg 12/27/19 22:00 12/28/19 03:28 Lipitor - PO Not Given HS TAMMY Chlorhexidine Gluconate 1 applic 12/27/19 22:00 Hibiclens For Decolonization - TP HS TAMMY Clonazepam 1 mg 12/27/19 22:00 12/28/19 03:27 Klonopin - PO Not Given BID T[facility] Dicyclomine HCl 10 mg 12/27/19 22:00 12/28/19 03:27 Bentyl - PO Not Given BID [facility] Diphenhydramine HCl 25 mg 12/27/19 16:15 Benadryl Injection - IVPUSH ONCE PRN FOR ITCHING Diphenhydramine HCl 25 mg 12/27/19 16:24 Benadryl - PO Q6H PRN FOR ITCHING Docusate Sodium 100 mg 12/27/19 22:00 12/28/19 05:04 Colace - PO Not Given TID [facility] Fentanyl 25 mcg 12/27/19 18:25 12/27/19 19:10 Sublimaze Injection - IVPUSH 25 mcg [id number] PRN Administration PAIN-PACU ORDER X 4 DOSES ONLY Ferrous Sulfate 325 mg 12/28/19 08:00 12/28/19 08:42 Feosol - PO Not Given DAILY@0800 [facility] Folic Acid 1 mg 12/28/19 10:00 12/28/19 12:32 Folic Acid - PO Not Given DAILY [facility] Gabapentin 200 mg 12/27/19 22:00 12/28/19 03:28 Neurontin - PO Not Given BID [facility] Heparin Sodium (Porcine) 5,000 unit 12/28/19 10:00 12/28/19 12:00 Heparin - SQ 5,000 unit Q8H TAMMY Administration Hydrochlorothiazide 25 mg 12/28/19 10:00 12/28/19 12:32 Hctz - PO Not Given DAILY [facility] Propofol 1,000,000 mcg in 100 mls @ 2.449 mls/hr 12/27/19 16:30 12/28/19 09:00 Diprivan - IVPB 0 mcg/kg/min TITR TAMMY 0 mls/hr Titration Protocol 5 MCG/KG/MIN Lactated Ringer's 1,000 ml in 1,000 mls @ 75 mls/hr 12/27/19 16:30 12/28/19 12:51 Lactated Ringers Solution IV 75 mls/hr ASDIR TAMMY Administration Cefazolin Sodium 1 gm/ 50 mls @ 100 mls/hr 12/27/19 22:00 12/28/19 05:04 Dextrose IVPB 100 mls/hr TID TAMMY Administration Fentanyl 500 mcg in 100 mls @ 16.329 mls/hr 12/27/19 22:45 12/28/19 13:23 Sublimaze Ivpb IVPB 12/28/19 22:44 0 mcg/kg/hr TITR TAMMY 0 mls/hr Titration Protocol 1 MCG/KG/HR Multivitamins/Minerals/Vitamin C 1 tab 12/28/19 10:00 12/28/19 12:31 Tab-A-Vit - PO Not Given DAILY [facility] Mupirocin 1 applic 12/27/19 22:00 12/28/19 10:50 Bactroban Ointment (For Decolonization) - NS 01/01/20 21:59 1 applic BID [facility] Administration Naloxone HCl 0.4 mg 12/27/19 16:15 Narcan - IVPUSH ONCE PRN Sedation Ondansetron HCl 4 mg 12/27/19 16:24 Zofran Injection IVPUSH Q6H PRN NAUSEA Oxycodone HCl 10 mg 12/28/19 16:17 Oxycontin - PO BID [facility] Pantoprazole Sodium 20 mg 12/28/19 10:00 12/28/19 12:00 Protonix - PO Not Given DAILY [facility] Tamsulosin HCl 0.4 mg 12/28/19 08:30 12/28/19 08:42 Flomax - PO Not Given 0830 [facility] Venlafaxine HCl 75 mg 12/27/19 22:00 12/28/19 03:27 Effexor Xr - PO Not Given BID [facility] ASSESSMENT/PLAN: 74 y/o male PMH htn, hld, pacs and pvcs, svt s/p ablation 2017 here for elective spine surgery for lumbar spondylosis and is now s/p T12-S2 laminectomies, decompression, osteotomies, deformity correction, and fusion POD 1. #Neuro Propofol 25 Fentanyl 75 gabapentin Tylenol Q6H #Pulmonary ETT now in appropriate location. Plan to extubate this AM. AC 12/450/40/5 plat 20 #[facility] Hold antihypertensives in the setting of low BP Lipitor 40 #GI protonix zofran; monitor QTc docusate #ID leukocytosis likely reactive to surgery # flomax #Psych Unable to verify dx Effexor Klonopin #Heme Normocytic anemia cont ferrous sulfate cont folic acid #PPX hep sq Protonix #FEN LR at 75 Monitor and replete electrolytes Clear liquid diet #TLD Wilfrido ADRIANE #Disposition ICU Full code Visit type - Emergency Visit Emergency Visit: No - New Patient This patient is new to me today: Yes Date on this admission: 12/28/19 - Critical Care Critical Care patient: Yes Total Critical Care Time (in minutes): 36 Critical Care Statement: The care of this patient involved high complexity decision making to prevent further life threatening deterioration of the patient's condition and/or to evaluate & treat vital organ system(s) failure or risk of failure. ATTENDING PHYSICIAN STATEMENT I saw and evaluated the patient. I reviewed the resident's note and discussed the case with the resident. I agree with the resident's findings and plan as documented. SUBJECTIVE: OBJECTIVE: ASSESSMENT AND PLAN:
[2019-12-28] MEDS ORDERED: PT OWN MED DRAWER 7, Y5N ONE ×2 (14:08→21:36)
--- NOTE | 2019-12-28 14:25 | PN ---
Teaching Attending Note Name of Resident: Peter Yadav ATTENDING PHYSICIAN STATEMENT I saw and evaluated the patient. I reviewed the resident's note and discussed the case with the resident. I agree with the resident's findings and plan as documented. SUBJECTIVE: Patient seen and examined in the ICU. Remains intubated and sedated. AC Mode of vent. Apparently facial edema improved. No pressors. Intake & Output 12/25/19 12/26/19 12/27/19 12/28/19 23:59 23:59 23:59 23:59 Intake Total 5257 1445 Output Total 2004 530 Balance 3252 915 Weight 180 lb 180 lb Last Vital Signs Temp Pulse Resp BP Pulse Ox 98.4 F 94 H 23 H 151/63 100 12/28/19 10:00 12/28/19 12:00 12/28/19 12:00 12/28/19 12:00 12/28/19 09:00 Active Medications Acetaminophen (Tylenol -) 650 mg PO Q6H [facility] Last Admin: 12/28/19 12:31 Dose: Not Given Documented by: Ascorbic Acid (Vitamin C -) 500 mg PO BID [facility] Last Admin: 12/28/19 12:31 Dose: Not Given Documented by: Atorvastatin Calcium (Lipitor -) 40 mg PO [facility] Last Admin: 12/28/19 03:28 Dose: Not Given Documented by: Chlorhexidine Gluconate (Hibiclens For Decolonization -) 1 applic TP [facility] Clonazepam (Klonopin -) 1 mg PO BID [facility] Last Admin: 12/28/19 03:27 Dose: Not Given Documented by: Dicyclomine HCl (Bentyl -) 10 mg PO BID [facility] Last Admin: 12/28/19 12:00 Dose: Not Given Documented by: Diphenhydramine HCl (Benadryl Injection -) 25 mg IVPUSH ONCE PRN PRN Reason: FOR ITCHING Diphenhydramine HCl (Benadryl -) 25 mg PO Q6H PRN PRN Reason: FOR ITCHING Docusate Sodium (Colace -) 100 mg PO TID [facility] Last Admin: 12/28/19 05:04 Dose: Not Given Documented by: Ferrous Sulfate (Feosol -) 325 mg PO DAILY@0800 [facility] Last Admin: 12/28/19 08:42 Dose: Not Given Documented by: Folic Acid (Folic Acid -) 1 mg PO DAILY [facility] Last Admin: 12/28/19 12:32 Dose: Not Given Documented by: Gabapentin (Neurontin -) 200 mg PO BID [facility] Last Admin: 12/28/19 12:00 Dose: Not Given Documented by: Heparin Sodium (Porcine) (Heparin -) 5,000 unit SQ Q8H [facility] Last Admin: 12/28/19 12:00 Dose: 5,000 unit Documented by: Hydrochlorothiazide (Hctz -) 25 mg PO DAILY [facility] Last Admin: 12/28/19 12:32 Dose: Not Given Documented by: Propofol (Diprivan -) 1,000,000 mcg in 100 mls @ 2.449 mls/hr IVPB TITR [facility]; Protocol Last Titration: 12/28/19 09:00 Dose: 0 mcg/kg/min, 0 mls/hr Documented by: Lactated Ringer's (Lactated Ringers Solution) 1,000 ml in 1,000 mls @ 75 mls/hr IV ASDIR [facility] Last Admin: 12/28/19 12:51 Dose: 75 mls/hr Documented by: Cefazolin Sodium 1 gm/ (Dextrose) 50 mls @ 100 mls/hr IVPB TID [facility] Last Admin: 12/28/19 05:04 Dose: 100 mls/hr Documented by: Fentanyl (Sublimaze Ivpb) 500 mcg in 100 mls @ 16.329 mls/hr IVPB TITR [facility]; Protocol Stop: 12/28/19 22:44 Last Titration: 12/28/19 13:23 Dose: 0 mcg/kg/hr, 0 mls/hr Documented by: Multivitamins/Minerals/Vitamin C (Tab-A-Vit -) 1 tab PO DAILY [facility] Last Admin: 12/28/19 12:31 Dose: Not Given Documented by: Mupirocin (Bactroban Ointment (For Decolonization) -) 1 applic NS BID [facility] Stop: 01/01/20 21:59 Last Admin: 12/28/19 10:50 Dose: 1 applic Documented by: Naloxone HCl (Narcan -) 0.4 mg IVPUSH ONCE PRN PRN Reason: Sedation Ondansetron HCl (Zofran Injection) 4 mg IVPUSH Q6H PRN PRN Reason: NAUSEA Oxycodone HCl (Oxycontin -) 10 mg PO BID [facility] Pantoprazole Sodium (Protonix -) 20 mg PO DAILY [facility] Last Admin: 12/28/19 12:00 Dose: Not Given Documented by: Tamsulosin HCl (Flomax -) 0.4 mg PO 0830 [facility] Last Admin: 12/28/19 08:42 Dose: Not Given Documented by: Venlafaxine HCl (Effexor Xr -) 75 mg PO BID [facility] Last Admin: 12/28/19 03:27 Dose: Not Given Documented by: GENERAL: intubated and sedated HEAD: Normal with no signs of trauma. EYES: IRVIN, No ptosis. ENT: Ears normal, nares patent, ETT in place NECK: Trachea midline, full range of motion, supple. LUNGS: Vented, clear to auscultation bilaterally, no wheezes, no crackles, no accessory muscle use. HEART: Regular rate and rhythm, S1, S2 without murmur, rub or gallop. ABDOMEN: Soft, nontender, nondistended, normoactive bowel sounds, no guarding, no rebound, no hepatosplenomegaly, no masses. EXTREMITIES: 2+ pulses, warm, well-perfused, no edema. NEUROLOGICAL: Sedated, non-focal SKIN: warm, dry, normal turgor, no rashes or lesions noted Laboratory Results - last 24 hr 12/27/19 12/27/19 12/28/19 06:10 20:30 00:30 WBC 15.5 H RBC 3.66 L Hgb 10.9 L Hct 32.3 L MCV 88.2 MCH 29.7 MCHC 33.6 RDW 14.3 Plt Count 173 MPV 9.2 Absolute Neuts (auto) 14.3 H Neutrophils % 92.3 H D Neutrophils % (Manual) 85.1 H Band Neutrophils % 7.9 Lymphocytes % 3.6 L D Lymphocytes % (Manual) 2.0 L Monocytes % 4.0 Monocytes % (Manual) 4 Eosinophils % 0.0 D Eosinophils % (Manual) 0.0 Basophils % 0.1 Basophils % (Manual) 1.0 Myelocytes % (Man) 0 Promyelocytes % (Man) 0 Blast Cells % (Manual) 0 Nucleated RBC % 0 Metamyelocytes 0 Hypochromia 1+ Platelet Estimate Normal Polychromasia 1+ Poikilocytosis 1+ Anisocytosis 0 Microcytosis 0 Macrocytosis 0 Ovalocytes 1+ Sodium 143 Potassium 4.0 Chloride 110 H Carbon Dioxide 26 Anion Gap 6 L BUN 21.8 H Creatinine 0.9 Est GFR (CKD-EPI)AfAm 98.55 Est GFR (CKD-EPI)NonAf 85.03 Random Glucose 128 H Calcium 7.2 L Blood Type B POSITIVE Antibody Screen Negative Crossmatch See Detail 12/28/19 12/28/19 06:05 06:05 WBC 13.0 H RBC 3.43 L Hgb 10.1 L Hct 30.4 L MCV 88.6 MCH 29.5 MCHC 33.3 RDW 14.4 Plt Count 156 MPV 9.0 Absolute Neuts (auto) Neutrophils % Neutrophils % (Manual) Band Neutrophils % Lymphocytes % Lymphocytes % (Manual) Monocytes % Monocytes % (Manual) Eosinophils % Eosinophils % (Manual) Basophils % Basophils % (Manual) Myelocytes % (Man) Promyelocytes % (Man) Blast Cells % (Manual) Nucleated RBC % Metamyelocytes Hypochromia Platelet Estimate Polychromasia Poikilocytosis Anisocytosis Microcytosis Macrocytosis Ovalocytes Sodium 143 Potassium 4.0 Chloride 109 H Carbon Dioxide 30 Anion Gap 4 L BUN 20.4 H Creatinine 0.9 Est GFR (CKD-EPI)AfAm 98.55 Est GFR (CKD-EPI)NonAf 85.03 Random Glucose 124 H Calcium 7.5 L Blood Type Antibody Screen Crossmatch ASSESSMENT/PLAN: Acute Respiratory Insufficiency POD #1: S/P T12 to S2 laminectomies, decompression, and fusion HTN HPL History of PACs & PVCs & SVT S/P ablation 2017 Hold all sedation CPAP trial when more awake and able to follow commands VTE prophylaxis Pain control PPI Normal transfusion thresholds Follow Neuro exam Requires ICU monitoring Dr Issa Critical care time spent in reviewing chart, evaluating patient and formulating plan - 36 minutes.
--- NOTE | 2019-12-28 14:45 | EKG ---
Test Reason : Blood Pressure : / mmHG Vent. Rate : 080 BPM Atrial Rate : 080 BPM P-R Int : 142 ms QRS Dur : 074 ms QT Int : 364 ms P-R-T Axes : 026 -24 -14 degrees QTc Int : 419 ms SINUS RHYTHM WITH PREMATURE ATRIAL COMPLEXES IN A PATTERN OF BIGEMINY INFERIOR INFARCT (CITED ON OR BEFORE 11-JUL-2017) ANTEROLATERAL INFARCT (CITED ON OR BEFORE 12-JUL-2017) ABNORMAL ECG WHEN COMPARED WITH ECG OF 27-DEC-2019 08:51, NONSPECIFIC T WAVE ABNORMALITY NOW EVIDENT IN INFERIOR LEADS Confirmed by JENNA KIM MD ([id number]) on 12/28/2019 2:44:33 PM Referred By: JENNA KIM Confirmed By:JENNA KIM MD
[2019-12-28] MEDS ORDERED: clonazePAM 0.5 MG TABLET PO PRN (15:06)
[2019-12-28] MEDS: oxyCODONE HCL 10 MG SUSTAINED ACTING TABLET PO SCH ×2 (15:47→22:04)
[2019-12-28] MEDS: CHLORHEXIDINE GLUCONATE 4% CLEANSER FOR DECOLONIZATION TP SCH (22:02)
--- NOTE | 2019-12-28 22:20 | PN ---
Progress Note (short form) - Note Progress Note: Paged by the nurse that the patient was complaining of abdominal pain. The patient also endorsed that he had not voided since his Hughes was removed during the day shift ~5 hrs ago. Nurse completed bladder scan which showed >500ml urine. Will replace hughes and attempt TOV in am.
[2019-12-29] MEDS: HEPARIN NA (PORCINE) 5,000 UNITS/ML 1ML VIAL SQ SCH ×2 (02:48→09:16)
[2019-12-29] MEDS: LACTATED RINGERS SOLUTION 1,000 ML/1,000 ML INFUS.BAG IV SCH ×2 (02:49→16:30)
[2019-12-29] MEDS: ACETAMINOPHEN 325 MG TABLET (FP) PO SCH ×4 (04:50→21:32)
[2019-12-29] MEDS ORDERED: DEXTROSE 5%-WATER - 50 ML IVPB ONE ×2 (05:43→13:48)
[2019-12-29] MEDS ORDERED: ceFAZolin SODIUM 1 GM VIAL ONE ×2 (05:43→13:48)
[2019-12-29] MEDS ORDERED: PT OWN MED DRAWER 7, Y5N ONE ×4 (05:43→21:28)
[2019-12-29] MEDS: DOCUSATE SODIUM 100 MG CAPSULE (FP) PO SCH ×2 (05:45→13:51)
[2019-12-29] MEDS: CEFAZOLIN 1 GM in DEXTROSE 5%-WATER - 50 ML IVPB SCH ×2 (05:45→13:51)
[2019-12-29 06:31] LABS: HEMATOCRIT 24.7 % (35.4-49); HEMOGLOBIN 8.3 GM/dL (11.7-16.9); MCH 29.3 pg (25.7-33.7); MCHC 33.5 g/dl (32.0-35.9); MEAN CELL VOLUME 87.5 fl (80-96); PLATELET COUNT 114 K/MM3 (134-434); RBC 2.82 M/mm3 (4.00-5.60); RDW 14.6 % (11.9-15.9); WHITE BLOOD COUNT 11.2 K/mm3 (4.0-10.0)
[2019-12-29 07:02] LABS: ALBUMIN 2.4 g/dl (3.4-5.0); BILIRUBIN,TOTAL 0.6 mg/dL (0.2-1); BLOOD UREA NITROGEN 14.5 mg/dL (7-18); CALCIUM 7.6 mg/dL (8.5-10.1); CREATININE 0.7 mg/dL (0.55-1.3); POTASSIUM 3.4 mmol/L (3.5-5.1)
[2019-12-29 07:03] LABS: TOT PROT 4.8 g/dl (6.4-8.2)
[2019-12-29] MEDS: FERROUS SO4 325 MG TABLET (FP) PO SCH (09:00)
[2019-12-29] MEDS: MUPIROCIN 2% TOPICAL OINTMENT FOR DECOLONIZATION NS SCH ×2 (09:15→21:29)
[2019-12-29] MEDS: TAMSULOSIN HCL 0.4 MG CAP PO SCH (09:15)
[2019-12-29] MEDS: DICYCLOMINE HCL 10 MG CAPSULE PO SCH ×2 (09:15→21:29)
[2019-12-29] MEDS: FOLIC ACID 1 MG TABLET (FP) PO SCH (09:16)
[2019-12-29] MEDS: HYDROCHLOROTHIAZIDE 25 MG TABLET (FP) PO SCH (09:16)
[2019-12-29] MEDS: VENLAFAXINE HCL 75 MG E.R. CAPSULES PO SCH ×2 (09:16→21:30)
[2019-12-29] MEDS: clonazePAM 0.5 MG TABLET PO SCH ×2 (09:16→21:30)
[2019-12-29] MEDS: GABAPENTIN 100 MG CAPSULE PO SCH ×2 (09:17→21:31)
[2019-12-29] MEDS: oxyCODONE HCL 10 MG SUSTAINED ACTING TABLET PO SCH ×2 (09:17→21:31)
[2019-12-29] MEDS: PANTOPRAZOLE 20 MG TABLET PO SCH (09:19)
[2019-12-29] MEDS: MULTIVITAMINS (DAILY MVI) TABLET (FP) PO SCH (09:19)
[2019-12-29] MEDS: ASCORBIC ACID 500 MG TABLET (FP) PO SCH ×2 (09:19→21:32)
--- NOTE | 2019-12-29 10:32 | PN ---
Progress Note, Physician Chief Complaint: atrial arrhythmia History of Present Illness: alert denies sob, cp, swelling, palp - Current Medication List Current Medications: Active Medications Acetaminophen (Tylenol -) 650 mg PO Q6H [facility] Last Admin: 12/29/19 04:50 Dose: 650 mg Documented by: Ascorbic Acid (Vitamin C -) 500 mg PO BID [facility] Last Admin: 12/29/19 09:19 Dose: 500 mg Documented by: Atorvastatin Calcium (Lipitor -) 40 mg PO [facility] Last Admin: 12/28/19 22:04 Dose: 40 mg Documented by: Chlorhexidine Gluconate (Hibiclens For Decolonization -) 1 applic TP [facility] Last Admin: 12/28/19 22:02 Dose: 1 applic Documented by: Clonazepam (Klonopin -) 1 mg PO BID [facility] Last Admin: 12/29/19 09:16 Dose: 1 mg Documented by: Clonazepam (Klonopin -) 1 mg PO ONCE PRN PRN Reason: ANXIETY Stop: 12/29/19 15:05 Dicyclomine HCl (Bentyl -) 10 mg PO BID [facility] Last Admin: 12/29/19 09:15 Dose: 10 mg Documented by: Diphenhydramine HCl (Benadryl Injection -) 25 mg IVPUSH ONCE PRN PRN Reason: FOR ITCHING Diphenhydramine HCl (Benadryl -) 25 mg PO Q6H PRN PRN Reason: FOR ITCHING Docusate Sodium (Colace -) 100 mg PO TID [facility] Last Admin: 12/29/19 05:45 Dose: 100 mg Documented by: Ferrous Sulfate (Feosol -) 325 mg PO DAILY@0800 [facility] Last Admin: 12/29/19 09:00 Dose: 325 mg Documented by: Folic Acid (Folic Acid -) 1 mg PO DAILY [facility] Last Admin: 12/29/19 09:16 Dose: 1 mg Documented by: Gabapentin (Neurontin -) 200 mg PO BID [facility] Last Admin: 12/29/19 09:17 Dose: 200 mg Documented by: Heparin Sodium (Porcine) (Heparin -) 5,000 unit SQ Q8H [facility] Last Admin: 12/29/19 09:16 Dose: 5,000 unit Documented by: Hydrochlorothiazide (Hctz -) 25 mg PO DAILY [facility] Last Admin: 12/29/19 09:16 Dose: 25 mg Documented by: Lactated Ringer's (Lactated Ringers Solution) 1,000 ml in 1,000 mls @ 75 mls/hr IV ASDIR [facility] Last Admin: 12/29/19 02:49 Dose: 75 mls/hr Documented by: Cefazolin Sodium 1 gm/ (Dextrose) 50 mls @ 100 mls/hr IVPB TID [facility] Last Admin: 12/29/19 05:45 Dose: 100 mls/hr Documented by: Multivitamins/Minerals/Vitamin C (Tab-A-Vit -) 1 tab PO DAILY [facility] Last Admin: 12/29/19 09:19 Dose: 1 tab Documented by: Mupirocin (Bactroban Ointment (For Decolonization) -) 1 applic NS BID [facility] Stop: 01/01/20 21:59 Last Admin: 12/29/19 09:15 Dose: 1 applic Documented by: Naloxone HCl (Narcan -) 0.4 mg IVPUSH ONCE PRN PRN Reason: Sedation Ondansetron HCl (Zofran Injection) 4 mg IVPUSH Q6H PRN PRN Reason: NAUSEA Oxycodone HCl (Oxycontin -) 10 mg PO BID [facility] Last Admin: 12/29/19 09:17 Dose: 10 mg Documented by: Pantoprazole Sodium (Protonix -) 20 mg PO DAILY [facility] Last Admin: 12/29/19 09:19 Dose: 20 mg Documented by: Tamsulosin HCl (Flomax -) 0.4 mg PO 0830 [facility] Last Admin: 12/29/19 09:15 Dose: 0.4 mg Documented by: Venlafaxine HCl (Effexor Xr -) 75 mg PO BID [facility] Last Admin: 12/29/19 09:16 Dose: 75 mg Documented by: - Objective Vital Signs: Vital Signs Temperature 98.3 F 12/29/19 10:00 Pulse Rate 82 12/29/19 10:00 Respiratory Rate 19 12/29/19 10:00 Blood Pressure 121/69 12/29/19 10:00 O2 Sat by Pulse Oximetry (%) 98 12/29/19 08:00 Constitutional: Yes: Well Nourished, No Distress, Calm Cardiovascular: Yes: Regular Rate and Rhythm. No: Gallop Respiratory: Yes: Regular, CTA Bilaterally. No: Accessory Muscle Use Extremities: No: Cold Edema: No (SCDs) Neurological: Yes: Alert. No: Seizure Psychiatric: No: Agitated Labs: CBC, BMP 12/29/19 05:25 12/29/19 05:25 Assessment/Plan tele: NSR with APCs, sinus tach, brief PSVT, 3b NSVT a/p: 74 m hx htn, hld, hx pacs and pvcs, svt s/p ablation 2017, s/p elective spine surgery. sinus with frequent APCs, PSVT, nonsustained VT: -tele irregular at times with APCs, no definite AF seen thus far. ECG confirmed sinus with APCs -cont tele monitoring -replete K htn: -bp stable -cont current meds hld: -cont home med svt s/p ablation: -has been in sr here, one brief run PSVT on tele -cont tele monitoring s/p laminectomy: -Post op management as per Critical Care an Neurosurgery
[2019-12-29] MEDS ORDERED: POTASSIUM CHLORIDE TABS 10 MEQ TABLET.ER (FP) PO ONE (10:33)
[2019-12-29] MEDS ORDERED: NAPH,MB-DB/K PH,MBDB POWDER PACKET PO ONE (12:05)
--- NOTE | 2019-12-29 12:05 | PN ---
Progress Note (short form) - Note Progress Note: POD#2 Laminectomy slightly confused -- he received Oxycontin few minutes ago no bm Vital Signs - 24 hr 12/28/19 12/28/19 12/28/19 14:00 15:27 16:00 Temperature 98.2 F 98.3 F Pulse Rate 97 H 92 H 98 H Respiratory 26 H 24 H Rate Blood Pressure 137/61 137/61 O2 Sat by Pulse 98 Oximetry (%) 12/28/19 12/28/19 12/28/19 18:00 20:00 21:00 Temperature 98.2 F 98.6 F Pulse Rate 86 86 Respiratory 24 H 25 H Rate Blood Pressure 131/57 L 128/56 L O2 Sat by Pulse 96 Oximetry (%) 12/28/19 12/28/19 12/29/19 21:32 22:00 00:00 Temperature 98.6 F 98.7 F Pulse Rate 113 H 94 H Respiratory 30 H 94 H Rate Blood Pressure 126/104 H 134/72 O2 Sat by Pulse 96 Oximetry (%) 12/29/19 12/29/19 12/29/19 02:00 04:00 06:00 Temperature 98.7 F 98.7 F 98.4 F Pulse Rate 85 95 H 88 Respiratory 26 H 24 H 20 Rate Blood Pressure 134/58 L 127/57 L 124/66 O2 Sat by Pulse Oximetry (%) 12/29/19 12/29/19 08:00 10:00 Temperature 98.4 F 98.3 F Pulse Rate 91 H 82 Respiratory 19 19 Rate Blood Pressure 125/71 121/69 O2 Sat by Pulse 98 Oximetry (%) Current Medications Generic Name Dose Route Start Last Admin Trade Name Freq PRN Reason Stop Dose Admin Acetaminophen 650 mg 12/27/19 16:15 12/29/19 10:39 Tylenol - PO 650 mg Q6H TAMMY Administration Ascorbic Acid 500 mg 12/27/19 22:00 12/29/19 09:19 Vitamin C - PO 500 mg BID TAMMY Administration Atorvastatin Calcium 40 mg 12/27/19 22:00 12/28/19 22:04 Lipitor - PO 40 mg HS TAMMY Administration Chlorhexidine Gluconate 1 applic 12/27/19 22:00 12/28/19 22:02 Hibiclens For Decolonization - TP 1 applic HS TAMMY Administration Clonazepam 1 mg 12/27/19 22:00 12/29/19 09:16 Klonopin - PO 1 mg BID TAMMY Administration Clonazepam 1 mg 12/28/19 15:06 Klonopin - PO 12/29/19 15:05 ONCE PRN ANXIETY Dicyclomine HCl 10 mg 12/27/19 22:00 12/29/19 09:15 Bentyl - PO 10 mg BID TAMMY Administration Diphenhydramine HCl 25 mg 12/27/19 16:15 Benadryl Injection - IVPUSH ONCE PRN FOR ITCHING Diphenhydramine HCl 25 mg 12/27/19 16:24 Benadryl - PO Q6H PRN FOR ITCHING Docusate Sodium 100 mg 12/27/19 22:00 12/29/19 05:45 Colace - PO 100 mg TID TAMMY Administration Ferrous Sulfate 325 mg 12/28/19 08:00 12/29/19 09:00 Feosol - PO 325 mg DAILY@0800 TAMMY Administration Folic Acid 1 mg 12/28/19 10:00 12/29/19 09:16 Folic Acid - PO 1 mg DAILY TAMMY Administration Gabapentin 200 mg 12/27/19 22:00 12/29/19 09:17 Neurontin - PO 200 mg BID TAMMY Administration Heparin Sodium (Porcine) 5,000 unit 12/28/19 10:00 12/29/19 09:16 Heparin - SQ 5,000 unit Q8H TAMMY Administration Hydrochlorothiazide 25 mg 12/28/19 10:00 12/29/19 09:16 Hctz - PO 25 mg DAILY TAMMY Administration Lactated Ringer's 1,000 ml in 1,000 mls @ 75 mls/hr 12/27/19 16:30 12/29/19 02:49 Lactated Ringers Solution IV 75 mls/hr ASDIR TAMMY Administration Cefazolin Sodium 1 gm/ 50 mls @ 100 mls/hr 12/27/19 22:00 12/29/19 05:45 Dextrose IVPB 100 mls/hr TID TAMMY Administration Multivitamins/Minerals/Vitamin C 1 tab 12/28/19 10:00 12/29/19 09:19 Tab-A-Vit - PO 1 tab DAILY TAMMY Administration Mupirocin 1 applic 12/27/19 22:00 12/29/19 09:15 Bactroban Ointment (For Decolonization) - NS 01/01/20 21:59 1 applic BID TAMMY Administration Naloxone HCl 0.4 mg 12/27/19 16:15 Narcan - IVPUSH ONCE PRN Sedation Ondansetron HCl 4 mg 12/27/19 16:24 Zofran Injection IVPUSH Q6H PRN NAUSEA Oxycodone HCl 10 mg 12/28/19 16:17 12/29/19 09:17 Oxycontin - PO 10 mg BID TAMMY Administration Pantoprazole Sodium 20 mg 12/28/19 10:00 12/29/19 09:19 Protonix - PO 20 mg DAILY TAMMY Administration Polyethylene Glycol 17 gm 12/29/19 12:15 Miralax (For Daily Use) - PO DAILY TAMMY Tamsulosin HCl 0.4 mg 12/28/19 08:30 12/29/19 09:15 Flomax - PO 0.4 mg 0830 TAMMY Administration Venlafaxine HCl 75 mg 12/27/19 22:00 12/29/19 09:16 Effexor Xr - PO 75 mg BID TAMMY Administration Laboratory Results - last 24 hr 12/29/19 12/29/19 05:25 05:25 WBC 11.2 H RBC 2.82 L Hgb 8.3 L Hct 24.7 L D MCV 87.5 MCH 29.3 MCHC 33.5 RDW 14.6 Plt Count 114 L D MPV 9.0 Sodium 141 Potassium 3.4 L Chloride 107 Carbon Dioxide 31 Anion Gap 4 L BUN 14.5 Creatinine 0.7 Est GFR (CKD-EPI)AfAm 109.27 Est GFR (CKD-EPI)NonAf 94.28 Random Glucose 105 Calcium 7.6 L Phosphorus 2.0 L Magnesium 2.0 Total Bilirubin 0.6 AST 29 ALT 22 Alkaline Phosphatase 69 Total Protein 4.8 L Albumin 2.4 L S1 S2 RRR Lungs decreased Abd- soft, obese, NT no edema Anna+ A/P Problem List - Problems (1) S/P laminectomy Assessment/Plan: icu extubated pain control- may give tylenol in between Pt eval Back brace Problems reviewed: Yes Code(s): Z98.890 - OTHER SPECIFIED POSTPROCEDURAL STATES (2) Hepatitis C Assessment/Plan: s/p treatment Problems reviewed: Yes Code(s): B19.20 - UNSPECIFIED VIRAL HEPATITIS C WITHOUT HEPATIC COMA (3) History of cholecystectomy Assessment/Plan: no active issues Problems reviewed: Yes Code(s): Z90.49 - ACQUIRED ABSENCE OF OTHER SPECIFIED PARTS OF DIGESTIVE TRACT (4) History of penile implant Assessment/Plan: No active issues Problems reviewed: Yes Code(s): Z96.0 - PRESENCE OF UROGENITAL IMPLANTS (5) History of cardiac radiofrequency ablation Assessment/Plan: cardiology following Code(s): Z98.890 - OTHER SPECIFIED POSTPROCEDURAL STATES (6) Hypertension Assessment/Plan: on meds Problems reviewed: Yes Code(s): I10 - ESSENTIAL (PRIMARY) HYPERTENSION (7) Generalized anxiety disorder Problems reviewed: Yes Code(s): F41.1 - GENERALIZED ANXIETY DISORDER (8) PTSD (post-traumatic stress disorder) Problems reviewed: Yes Code(s): F43.10 - POST-TRAUMATIC STRESS DISORDER, UNSPECIFIED Anemia-->monitor , no active bleeding hypokalemia-- replace lytes Problem List - Problems (1) Hepatitis C Code(s): B19.20 - UNSPECIFIED VIRAL HEPATITIS C WITHOUT HEPATIC COMA (2) S/P laminectomy Code(s): Z98.890 - OTHER SPECIFIED POSTPROCEDURAL STATES (3) History of back surgery Code(s): Z98.890 - OTHER SPECIFIED POSTPROCEDURAL STATES (4) Hypercholesterolemia Code(s): E78.00 - PURE HYPERCHOLESTEROLEMIA, UNSPECIFIED (5) Hypertension Code(s): I10 - ESSENTIAL (PRIMARY) HYPERTENSION (6) PTSD (post-traumatic stress disorder) Code(s): F43.10 - POST-TRAUMATIC STRESS DISORDER, UNSPECIFIED
[2019-12-29] MEDS: POLYETHYLENE GLYCOL 3350 119 GM BTL PO SCH (12:24)
--- NOTE | 2019-12-29 12:25 | PN ---
Progress Note (short form) - Note Progress Note: PULM/CCM POD#2 s/p Laminectomy Patient seen and examined in the ICU. Extubated --> ORA. CA+OX3. Eating. Active Medications Acetaminophen (Tylenol -) 650 mg PO Q6H [facility] Last Admin: 12/29/19 10:39 Dose: 650 mg Documented by: Ascorbic Acid (Vitamin C -) 500 mg PO BID [facility] [place] Last Admin: 12/29/19 09:19 Dose: 500 mg Documented by: Atorvastatin Calcium (Lipitor -) 40 mg PO [facility] Last Admin: 12/28/19 22:04 Dose: 40 mg Documented by: Chlorhexidine Gluconate (Hibiclens For Decolonization -) 1 applic TP [facility] Last Admin: 12/28/19 22:02 Dose: 1 applic Documented by: Clonazepam (Klonopin -) 1 mg PO BID [facility] [place] Last Admin: 12/29/19 09:16 Dose: 1 mg Documented by: Dicyclomine HCl (Bentyl -) 10 mg PO BID [facility] [place] Last Admin: 12/29/19 09:15 Dose: 10 mg Documented by: Diphenhydramine HCl (Benadryl Injection -) 25 mg IVPUSH ONCE PRN PRN Reason: FOR ITCHING Diphenhydramine HCl (Benadryl -) 25 mg PO Q6H PRN PRN Reason: FOR ITCHING Docusate Sodium (Colace -) 100 mg PO TID [facility] [place] Last Admin: 12/29/19 13:51 Dose: 100 mg Documented by: Ferrous Sulfate (Feosol -) 325 mg PO DAILY@0800 [facility] [place] Last Admin: 12/29/19 09:00 Dose: 325 mg Documented by: Folic Acid (Folic Acid -) 1 mg PO DAILY [facility] [place] Last Admin: 12/29/19 09:16 Dose: 1 mg Documented by: Gabapentin (Neurontin -) 200 mg PO BID [facility] [place] Last Admin: 12/29/19 09:17 Dose: 200 mg Documented by: Heparin Sodium (Porcine) (Heparin -) 5,000 unit SQ Q8H [facility] [place] Last Admin: 12/29/19 09:16 Dose: 5,000 unit Documented by: Hydrochlorothiazide (Hctz -) 25 mg PO DAILY [facility] [place] Last Admin: 12/29/19 09:16 Dose: 25 mg Documented by: Lactated Ringer's (Lactated Ringers Solution) 1,000 ml in 1,000 mls @ 75 mls/hr IV ASDIR [facility] [place] Last Admin: 12/29/19 02:49 Dose: 75 mls/hr Documented by: Cefazolin Sodium 1 gm/ (Dextrose) 50 mls @ 100 mls/hr IVPB TID [facility] [place] Last Admin: 12/29/19 13:51 Dose: 100 mls/hr Documented by: Multivitamins/Minerals/Vitamin C (Tab-A-Vit -) 1 tab PO DAILY [facility] [place] Last Admin: 12/29/19 09:19 Dose: 1 tab Documented by: Mupirocin (Bactroban Ointment (For Decolonization) -) 1 applic NS BID [facility] [place] Stop: 01/01/20 21:59 Last Admin: 12/29/19 09:15 Dose: 1 applic Documented by: Naloxone HCl (Narcan -) 0.4 mg IVPUSH ONCE PRN PRN Reason: Sedation Ondansetron HCl (Zofran Injection) 4 mg IVPUSH Q6H PRN PRN Reason: NAUSEA Oxycodone HCl (Oxycontin -) 10 mg PO BID [facility] [place] Last Admin: 12/29/19 09:17 Dose: 10 mg Documented by: Pantoprazole Sodium (Protonix -) 20 mg PO DAILY [facility] [place] Last Admin: 12/29/19 09:19 Dose: 20 mg Documented by: Polyethylene Glycol (Miralax (For Daily Use) -) 17 gm PO DAILY [facility] [place] Last Admin: 12/29/19 12:24 Dose: 17 gm Documented by: Tamsulosin HCl (Flomax -) 0.4 mg PO 0830 [facility] [place] Last Admin: 12/29/19 09:15 Dose: 0.4 mg Documented by: Venlafaxine HCl (Effexor Xr -) 75 mg PO BID [facility] [place] Last Admin: 12/29/19 09:16 Dose: 75 mg Documented by: Vital Signs Period Temp Pulse Resp BP Sys/Henry Pulse Ox Last 24 Hr 98.0 F-98.7 F 81-113 19-94 121-137/56-104 96-98 Intake & Output 12/26/19 12/27/19 12/28/19 12/29/19 23:59 23:59 23:59 23:59 Intake Total 4598 6440 1337 Output Total 2004 2131 5829 Balance 3252 113 -239 Weight 81.647 kg 81.647 kg GEN: Elderly man CA+OX3, NAD HEENT: NCAT, PERRL, an-icteric, MMM PULM: CTAB CV: nml S1 S2, RR, Unable to appreciate any G/M/R ABD: Hypo-active BS, S/S N/T N/D X4Q EXT: + Pulses, WWPX4, (-) edema SKIN:Warm/dry no obvious rashes lesions or ulcers CBC, BMP 12/29/19 05:25 12/29/19 05:25 ASSESS: POD #2: S/P T12 to S2 laminectomies, decompression, and fusion Resolving Post-Op Respiratory Insufficiency HTN HPL History of PACs & PVCs & SVT S/P ablation 2016 PLAN: Pain control OOB with PT OOB with TLSO brace Monitor drain PPI Advance diet a/p neurosx Normal transfusion thresholds Follow Neuro exam VTE prophylaxis F/u w/ Dr Chaney D/c --> Med Surg [facility] ICU PULM/CCM [id number]
[2019-12-29] MEDS: CHLORHEXIDINE GLUCONATE 4% CLEANSER FOR DECOLONIZATION TP SCH (21:29)
[2019-12-29] MEDS: ATORVASTATIN CA 40 MG TABLET (FP) PO SCH (21:30)
[2019-12-30] MEDS: ACETAMINOPHEN 325 MG TABLET (FP) PO SCH (04:50)
[2019-12-30 06:50] LABS: ALBUMIN 2.2 g/dl (3.4-5.0); BILIRUBIN,TOTAL 0.8 mg/dL (0.2-1); BLOOD UREA NITROGEN 9.8 mg/dL (7-18); CALCIUM 7.6 mg/dL (8.5-10.1); CREATININE 0.7 mg/dL (0.55-1.3); TOT PROT 4.7 g/dl (6.4-8.2)
[2019-12-30 06:52] LABS: BASO % 0.2 % (0-2.0); EOS % 0.8 % (0-4.5); HEMOGLOBIN 7.4 GM/dL (11.7-16.9); LYMPH % 19.1 % (8-40); MCH 29.4 pg (25.7-33.7); MCHC 33.7 g/dl (32.0-35.9); MEAN CELL VOLUME 87.3 fl (80-96); MEAN PLT VOLUME 9.3 fl (7.5-11.1); MONO % 6.3 % (3.8-10.2); NEUT % 73.6 % (42.8-82.8); PLATELET COUNT 110 K/MM3 (134-434); RBC 2.52 M/mm3 (4.00-5.60); RDW 14.6 % (11.9-15.9)
[2019-12-30] MEDS: KCL 10 MEQ IVPB 10 MEQ/100 ML INFUS.BAG IVPB SCH ×2 (08:20→09:58)
[2019-12-30] MEDS: TAMSULOSIN HCL 0.4 MG CAP PO SCH (08:20)
--- NOTE | 2019-12-30 08:53 | PN ---
Progress Note (short form) - Note Progress Note: PULM/CCM POD#3 s/p Laminectomy Patient seen and examined in the ICU. Alert and oriented x3, confused at times Vital Signs Period Temp Pulse Resp BP Sys/Henry Pulse Ox Last 24 Hr 97.9 F-98.6 F 80-98 20-25 105-152/47-99 98-98 Intake & Output 12/27/19 12/28/19 12/29/19 12/30/19 23:59 23:59 23:59 23:59 Intake Total 5257 2245 2295 454 Output Total 2004 2131 2601 937 Balance 4791 305 -309 -656 Weight 81.647 kg GEN: Elderly man CA+OX3, NAD HEENT: NCAT, PERRL, an-icteric, MMM PULM: CTAB CV: nml S1 S2, RR, Unable to appreciate any G/M/R ABD: Hypo-active BS, S/S N/T N/D X4Q EXT: + Pulses, WWPX4, (-) edema SKIN:Warm/dry no obvious rashes lesions or ulcers CBC, BMP 12/30/19 05:25 12/30/19 05:25 ASSESS: POD #2: S/P T12 to S2 laminectomies, decompression, and fusion Resolving Post-Op Respiratory Insufficiency HTN HPL History of PACs & PVCs & SVT S/P ablation 2016 Confusion PLAN: - Pain control - Will hold on Oxycontin at this time due to periods of confusion, give Tylenol IV 1 g q 6 hours for pain - OOB with PT - OOB with TLSO brace - Monitor drain - PPI - One unit PRBC today for Hgb of 7.4 - Follow Neuro exam - VTE prophylaxis - Patient had episodes of confusion and reported double vision today, neuros urgery aware - Neuro exam WNL Jaye Fink, [facility] ICU PULM/CCM [id number]
[2019-12-30] MEDS ORDERED: ACETAMINOPHEN 1000 MG/100 ML VIAL (NON FORMULARY) IVPB PRN (09:46)
[2019-12-30] MEDS: clonazePAM 0.5 MG TABLET PO SCH (10:01)
[2019-12-30] MEDS: oxyCODONE HCL 10 MG SUSTAINED ACTING TABLET PO SCH ×2 (10:01→21:31)
[2019-12-30] MEDS: HYDROCHLOROTHIAZIDE 25 MG TABLET (FP) PO SCH (10:02)
[2019-12-30] MEDS: DICYCLOMINE HCL 10 MG CAPSULE PO SCH (10:03)
--- NOTE | 2019-12-30 10:05 | PN ---
Progress Note, Physician Chief Complaint: atrial arrhythmia History of Present Illness: denies sob, cp, palp, dizzy - Current Medication List Current Medications: Active Medications Acetaminophen (Ofirmev Injection -) 1,000 mg IVPB Q6H PRN PRN Reason: PAIN LEVEL 4 - 6 Stop: 12/31/19 09:47 Ascorbic Acid (Vitamin C -) 500 mg PO BID [facility] Last Admin: 12/29/19 21:32 Dose: 500 mg Documented by: Atorvastatin Calcium (Lipitor -) 40 mg PO [facility] Last Admin: 12/29/19 21:30 Dose: 40 mg Documented by: Chlorhexidine Gluconate (Hibiclens For Decolonization -) 1 applic TP [facility] Last Admin: 12/29/19 21:29 Dose: 1 applic Documented by: Clonazepam (Klonopin -) 1 mg PO BID [facility] Last Admin: 12/29/19 21:30 Dose: 1 mg Documented by: Dicyclomine HCl (Bentyl -) 10 mg PO BID [facility] Last Admin: 12/29/19 21:29 Dose: 10 mg Documented by: Diphenhydramine HCl (Benadryl Injection -) 25 mg IVPUSH ONCE PRN PRN Reason: FOR ITCHING Gabapentin (Neurontin -) 200 mg PO BID [facility] Last Admin: 12/29/19 21:31 Dose: 200 mg Documented by: Hydrochlorothiazide (Hctz -) 25 mg PO DAILY [facility] Last Admin: 12/29/19 09:16 Dose: 25 mg Documented by: Potassium Chloride (Potassium Chloride 10 Meq Premix Ivpb -) 10 meq in 100 mls @ 100 mls/hr IVPB Q60M [facility] Stop: 12/30/19 10:14 Last Admin: 12/30/19 09:58 Dose: 100 mls/hr Documented by: Multivitamins/Minerals/Vitamin C (Tab-A-Vit -) 1 tab PO DAILY [facility] Last Admin: 12/29/19 09:19 Dose: 1 tab Documented by: Mupirocin (Bactroban Ointment (For Decolonization) -) 1 applic NS BID [facility] Stop: 01/01/20 21:59 Last Admin: 12/29/19 21:29 Dose: 1 applic Documented by: Naloxone HCl (Narcan -) 0.4 mg IVPUSH ONCE PRN PRN Reason: Sedation Oxycodone HCl (Oxycontin -) 10 mg PO BID [facility] Last Admin: 12/29/19 21:31 Dose: 10 mg Documented by: Pantoprazole Sodium (Protonix -) 20 mg PO DAILY [facility] Last Admin: 12/29/19 09:19 Dose: 20 mg Documented by: Polyethylene Glycol (Miralax (For Daily Use) -) 17 gm PO DAILY [facility] Last Admin: 12/29/19 12:24 Dose: 17 gm Documented by: Potassium Phos/Sodium Phos (Phos-Nak Packet -) 2 packet PO BID [facility] Stop: 12/30/19 22:00 Tamsulosin HCl (Flomax -) 0.4 mg PO 0830 [facility] Last Admin: 12/30/19 08:20 Dose: 0.4 mg Documented by: Venlafaxine HCl (Effexor Xr -) 75 mg PO BID [facility] Last Admin: 12/29/19 21:30 Dose: 75 mg Documented by: - Objective Vital Signs: Vital Signs Temperature 98.2 F 12/30/19 09:00 Pulse Rate 80 12/30/19 09:00 Respiratory Rate 24 H 12/30/19 09:00 Blood Pressure 115/66 12/30/19 09:00 O2 Sat by Pulse Oximetry (%) 98 12/30/19 09:00 Constitutional: Yes: Well Nourished, No Distress, Calm Cardiovascular: Yes: Regular Rate and Rhythm. No: JVD, Gallop, Murmur Respiratory: Yes: Regular, CTA Bilaterally. No: Accessory Muscle Use Extremities: No: Cold Edema: No (SCDs) Neurological: Yes: Alert. No: Lethargy, Seizure Psychiatric: No: Agitated Labs: CBC, BMP 12/30/19 05:25 12/30/19 05:25 Assessment/Plan tele: NSR a/p: 74 m hx htn, hld, hx pacs and pvcs, svt s/p ablation 2017, s/p elective spine surgery. sinus with frequent APCs, PSVT, nonsustained VT: -tele irregular at times with APCs, no definite AF seen thus far. ECG confirmed sinus with APCs -cont tele monitoring -replete K aggressively (down further today) htn: -bp stable -cont current meds hld: -cont home med anemia: -counts trending down -per surgery, primary team svt s/p ablation: -has been in sr here, one brief run PSVT on tele -cont tele monitoring s/p laminectomy: -Post op management as per Critical Care an Neurosurgery
[2019-12-30] MEDS: MUPIROCIN 2% TOPICAL OINTMENT FOR DECOLONIZATION NS SCH ×2 (10:07→22:08)
[2019-12-30] MEDS: VENLAFAXINE HCL 75 MG E.R. CAPSULES PO SCH ×2 (10:08→21:31)
[2019-12-30] MEDS: POLYETHYLENE GLYCOL 3350 119 GM BTL PO SCH (10:09)
[2019-12-30] MEDS: MULTIVITAMINS (DAILY MVI) TABLET (FP) PO SCH (10:10)
[2019-12-30] MEDS: GABAPENTIN 100 MG CAPSULE PO SCH (10:10)
[2019-12-30] MEDS: PANTOPRAZOLE 20 MG TABLET PO SCH (10:10)
[2019-12-30] MEDS: NAPH,MB-DB/K PH,MBDB POWDER PACKET PO SCH ×2 (10:12→21:31)
[2019-12-30] MEDS: ASCORBIC ACID 500 MG TABLET (FP) PO SCH ×2 (10:12→21:31)
--- NOTE | 2019-12-30 13:47 | PN ---
Progress Note (short form) - Note Progress Note: POD#3 Laminectomy no bm so far was confused today morning was seeing double today he remembers past events has no pain not anxious no headaches No SOB Vital Signs - 24 hr 12/29/19 12/29/19 12/29/19 14:00 16:00 20:00 Temperature 98.0 F 98.2 F 98.2 F Pulse Rate 86 84 85 Respiratory 20 20 23 H Rate Blood Pressure 123/60 105/61 115/47 L O2 Sat by Pulse Oximetry (%) 12/29/19 12/29/19 12/30/19 20:41 22:00 00:00 Temperature 98.4 F 98.4 F Pulse Rate 98 H 86 Respiratory 20 21 H Rate Blood Pressure 152/94 115/53 L O2 Sat by Pulse 98 Oximetry (%) 12/30/19 12/30/19 12/30/19 02:00 04:00 07:37 Temperature 98.6 F 98.4 F Pulse Rate 97 H 88 81 Respiratory 25 H 23 H 24 H Rate Blood Pressure 129/99 121/65 121/57 L O2 Sat by Pulse Oximetry (%) 12/30/19 12/30/19 12/30/19 09:00 11:00 13:00 Temperature 98.2 F 97.9 F 99.0 F Pulse Rate 80 81 96 H Respiratory 24 H 22 H 24 H Rate Blood Pressure 115/66 125/68 133/59 L O2 Sat by Pulse 98 Oximetry (%) Current Medications Generic Name Dose Route Start Last Admin Trade Name Freq PRN Reason Stop Dose Admin Acetaminophen 1,000 mg 12/30/19 09:46 Ofirmev Injection - IVPB 12/31/19 09:47 Q6H PRN PAIN LEVEL 4 - 6 Ascorbic Acid 500 mg 12/27/19 22:00 12/30/19 10:12 Vitamin C - PO 500 mg BID TAMMY Administration Atorvastatin Calcium 40 mg 12/27/19 22:00 12/29/19 21:30 Lipitor - PO 40 mg HS TAMMY Administration Chlorhexidine Gluconate 1 applic 12/27/19 22:00 12/29/19 21:29 Hibiclens For Decolonization - TP 1 applic HS TAMMY Administration Clonazepam 1 mg 12/30/19 13:46 Klonopin - PO BID PRN ANXIETY Dicyclomine HCl 10 mg 12/27/19 22:00 12/30/19 10:03 Bentyl - PO Not Given BID TAMMY Diphenhydramine HCl 25 mg 12/27/19 16:15 Benadryl Injection - IVPUSH ONCE PRN FOR ITCHING Gabapentin 200 mg 12/27/19 22:00 12/30/19 10:10 Neurontin - PO 200 mg BID TAMMY Administration Hydrochlorothiazide 25 mg 12/28/19 10:00 12/30/19 10:02 Hctz - PO Not Given DAILY TAMMY Multivitamins/Minerals/Vitamin C 1 tab 12/28/19 10:00 12/30/19 10:10 Tab-A-Vit - PO 1 tab DAILY TAMMY Administration Mupirocin 1 applic 12/27/19 22:00 12/30/19 10:07 Bactroban Ointment (For Decolonization) - NS 01/01/20 21:59 1 applic BID TAMMY Administration Naloxone HCl 0.4 mg 12/27/19 16:15 Narcan - IVPUSH ONCE PRN Sedation Oxycodone HCl 10 mg 12/28/19 16:17 12/30/19 10:01 Oxycontin - PO Not Given BID TAMMY Pantoprazole Sodium 20 mg 12/28/19 10:00 12/30/19 10:10 Protonix - PO 20 mg DAILY TAMMY Administration Polyethylene Glycol 17 gm 12/29/19 12:15 12/30/19 10:09 Miralax (For Daily Use) - PO 17 gm DAILY TAMMY Administration Potassium Phos/Sodium Phos 2 packet 12/30/19 10:00 12/30/19 10:12 Phos-Nak Packet - PO 12/30/19 22:00 2 packet BID TAMMY Administration Tamsulosin HCl 0.4 mg 12/28/19 08:30 12/30/19 08:20 Flomax - PO 0.4 mg 0830 TAMMY Administration Venlafaxine HCl 75 mg 12/27/19 22:00 12/30/19 10:08 Effexor Xr - PO 75 mg BID TAMMY Administration Laboratory Results - last 24 hr 12/30/19 12/30/19 12/30/19 05:25 05:25 08:15 WBC 8.0 RBC 2.52 L Hgb 7.4 L Hct 22.0 L MCV 87.3 MCH 29.4 MCHC 33.7 RDW 14.6 Plt Count 110 L MPV 9.3 Absolute Neuts (auto) 5.9 Neutrophils % 73.6 D Lymphocytes % 19.1 D Monocytes % 6.3 Eosinophils % 0.8 D Basophils % 0.2 Nucleated RBC % 0 Sodium 141 Potassium 3.0 L Chloride 104 Carbon Dioxide 35 H Anion Gap 3 L BUN 9.8 Creatinine 0.7 Est GFR (CKD-EPI)AfAm 109.27 Est GFR (CKD-EPI)NonAf 94.28 Random Glucose 99 Calcium 7.6 L Phosphorus 2.0 L Magnesium 2.0 Total Bilirubin 0.8 AST 25 ALT 20 Alkaline Phosphatase 81 Total Protein 4.7 L Albumin 2.2 L Blood Type B POSITIVE Antibody Screen Negative Crossmatch See Detail S1 S2 RRR Lungs decreased Abd- soft, obese, NT no edema Anna+ drain+ A/P Problem List - Problems (1) S/P laminectomy Assessment/Plan: pain control- may give tylenol -- try to use Oxycodone sparingly Pt eval Back brace Problems reviewed: Yes Code(s): Z98.890 - OTHER SPECIFIED POSTPROCEDURAL STATES (2) Hepatitis C Assessment/Plan: s/p treatment Problems reviewed: Yes Code(s): B19.20 - UNSPECIFIED VIRAL HEPATITIS C WITHOUT HEPATIC COMA (3) History of cholecystectomy Assessment/Plan: no active issues Problems reviewed: Yes Code(s): Z90.49 - ACQUIRED ABSENCE OF OTHER SPECIFIED PARTS OF DIGESTIVE TRACT (4) History of penile implant Assessment/Plan: No active issues Problems reviewed: Yes Code(s): Z96.0 - PRESENCE OF UROGENITAL IMPLANTS (5) History of cardiac radiofrequency ablation Assessment/Plan: cardiology following Code(s): Z98.890 - OTHER SPECIFIED POSTPROCEDURAL STATES (6) Hypertension Assessment/Plan: on meds Problems reviewed: Yes Code(s): I10 - ESSENTIAL (PRIMARY) HYPERTENSION (7) Generalized anxiety disorder Problems reviewed: Yes Code(s): F41.1 - GENERALIZED ANXIETY DISORDER (8) PTSD (post-traumatic stress disorder) Problems reviewed: Yes Code(s): F43.10 - POST-TRAUMATIC STRESS DISORDER, UNSPECIFIED Anemia-->monitor , no active bleeding hypokalemia-- replace lytes, replace Phosphorus Post Op confusion--afebrile, vitals stable-- can be due to meds , will dc gabapentin, use Oxycodone sparingly, use Klonopin as needed Problem List - Problems (1) Hepatitis C Code(s): B19.20 - UNSPECIFIED VIRAL HEPATITIS C WITHOUT HEPATIC COMA (2) S/P laminectomy Code(s): Z98.890 - OTHER SPECIFIED POSTPROCEDURAL STATES (3) History of back surgery Code(s): Z98.890 - OTHER SPECIFIED POSTPROCEDURAL STATES (4) Hypercholesterolemia Code(s): E78.00 - PURE HYPERCHOLESTEROLEMIA, UNSPECIFIED (5) Hypertension Code(s): I10 - ESSENTIAL (PRIMARY) HYPERTENSION (6) PTSD (post-traumatic stress disorder) Code(s): F43.10 - POST-TRAUMATIC STRESS DISORDER, UNSPECIFIED
[2019-12-30] MEDS: ATORVASTATIN CA 40 MG TABLET (FP) PO SCH (21:32)
[2019-12-30] MEDS: CHLORHEXIDINE GLUCONATE 4% CLEANSER FOR DECOLONIZATION TP SCH (22:08)
[2019-12-31 06:53] LABS: BASO % 0.3 % (0-2.0); EOS % 1.5 % (0-4.5); HEMATOCRIT 26.6 % (35.4-49); LYMPH % 15.5 % (8-40); MCH 30.2 pg (25.7-33.7); MCHC 33.9 g/dl (32.0-35.9); MEAN CELL VOLUME 88.9 fl (80-96); MEAN PLT VOLUME 9.1 fl (7.5-11.1); MONO % 6.3 % (3.8-10.2); NEUT % 76.4 % (42.8-82.8); PLATELET COUNT 139 K/MM3 (134-434); RBC 2.99 M/mm3 (4.00-5.60); RDW 14.3 % (11.9-15.9); WHITE BLOOD COUNT 7.4 K/mm3 (4.0-10.0)
[2019-12-31 07:25] LABS: ALBUMIN 2.3 g/dl (3.4-5.0); BILIRUBIN,TOTAL 0.4 mg/dL (0.2-1); BLOOD UREA NITROGEN 11.6 mg/dL (7-18); CALCIUM 7.8 mg/dL (8.5-10.1); CREATININE 0.8 mg/dL (0.55-1.3); MAGNESIUM 2.1 mg/dL (1.8-2.4); PHOSPHOROUS 2.4 mg/dL (2.5-4.9); POTASSIUM 3.5 mmol/L (3.5-5.1); TOT PROT 5.2 g/dl (6.4-8.2)
[2019-12-31] MEDS ORDERED: NAPH,MB-DB/K PH,MBDB POWDER PACKET PO ONE (07:45)
[2019-12-31] MEDS: TAMSULOSIN HCL 0.4 MG CAP PO SCH (08:32)
[2019-12-31] MEDS ORDERED: PT OWN MED DRAWER 7, Y5N ONE (09:05)
[2019-12-31] MEDS: MULTIVITAMINS (DAILY MVI) TABLET (FP) PO SCH (09:21)
[2019-12-31] MEDS: PANTOPRAZOLE 20 MG TABLET PO SCH (09:22)
[2019-12-31] MEDS: HYDROCHLOROTHIAZIDE 25 MG TABLET (FP) PO SCH (09:22)
[2019-12-31] MEDS: ASCORBIC ACID 500 MG TABLET (FP) PO SCH ×2 (09:22→21:10)
[2019-12-31] MEDS: VENLAFAXINE HCL 75 MG E.R. CAPSULES PO SCH ×2 (09:22→21:10)
[2019-12-31] MEDS: POLYETHYLENE GLYCOL 3350 119 GM BTL PO SCH (09:23)
[2019-12-31] MEDS: oxyCODONE HCL 10 MG SUSTAINED ACTING TABLET PO SCH ×2 (09:24→21:11)
--- NOTE | 2019-12-31 09:32 | ECHO ---
Name: LIYA VERA Exam:Adult Echocardiogram Study Date: 12/31/2019 07:57 AM Age: 74 yrs Reason For Study: PVCS/NSVT Height: 66 in Weight: 180 lb BSA: 1.9 m2 MMode/2D Measurements & Calculations IVSd: 0.93 cm Ao root diam: 2.3 cm LVIDd: 4.8 cm LA dimension: 3.3 cm LVIDs: 2.8 cm LVPWd: 0.90 cm EDV(Teich): 108.5 ml LVOT diam: 2.0 cm ESV(Teich): 30.2 ml LAV (MOD-bp): 52.7 ml Doppler Measurements & Calculations MV E max angel: 85.4 cm/sec Ao V2 max: 165.6 cm/sec MV A max angel: 114.9 cm/sec Ao max P.0 mmHg MV E/A: 0.74 MV dec time: 0.22 sec CAROLYN(V,D): 2.0 cm2 LV V1 max P.0 mmHg PA V2 max: 116.7 cm/sec LV V1 max: 112.0 cm/sec PA max P.5 mmHg Med Peak E' Angel: 6.4 cm/sec Med E/e': 13.3 Lat Peak E' Angel: 7.6 cm/sec Lat E/e': 11.2 Procedure Study Quality: Fair. Left Ventricle The left ventricular size, thickness and function are normal. The left ventricular ejection fraction is normal. Ejection Fraction = 55-60%. The transmitral spectral Doppler flow pattern is suggestive of im paired LV relaxation. Right Ventricle The right ventricle is normal in size and function. Atria Normal left and right atrial size and function. Mitral Valve The mitral valve leaflets appear normal. There is no evidence of stenosis, fluttering, or prolapse. T here is mild mitral annular calcification. There is trace mitral regurgitation. Tricuspid Valve The tricuspid valve is normal in structure and function. Aortic Valve There is mild aortic sclerosis.;. No hemodynamically significant valvular aortic stenosis. No aortic regurgitation is present. Pulmonic Valve The pulmonic valve leaflets are thin and pliable; valve motion is normal. There is no pulmonic valvul ar regurgitation. Great Vessels The aortic root is normal size. Pericardium/Pleura There is no pericardial effusion. Interpretation Summary LV: Normal size and systolic function,EF 55-60%, Impaired relaxation RV: Normal Mild laura torie annular calcification. Mildly sclerotic aortic valve. Miri Osullivan 12/31/2019 09:31 AM
[2019-12-31] MEDS: MUPIROCIN 2% TOPICAL OINTMENT FOR DECOLONIZATION NS SCH ×2 (09:33→21:10)
--- NOTE | 2019-12-31 11:51 | PN ---
Progress Note (short form) - Note Progress Note: Chief Complaint: atrial arrhythmia History of Present Illness: denies sob, cp, palp, dizzy - Current Medication List Current Medications: Active Medications Current Medications Generic Name Dose Route Start Last Admin Trade Name Freq PRN Reason Stop Dose Admin Ascorbic Acid 500 mg 12/27/19 22:00 12/31/19 09:22 Vitamin C - PO 500 mg BID TAMMY Administration Atorvastatin Calcium 40 mg 12/27/19 22:00 12/30/19 21:32 Lipitor - PO 40 mg HS TAMMY Administration Chlorhexidine Gluconate 1 applic 12/27/19 22:00 12/30/19 22:08 Hibiclens For Decolonization - TP 1 applic HS TAMMY Administration Clonazepam 1 mg 12/30/19 13:46 Klonopin - PO BID PRN ANXIETY Diphenhydramine HCl 25 mg 12/27/19 16:15 Benadryl Injection - IVPUSH ONCE PRN FOR ITCHING Hydrochlorothiazide 25 mg 12/28/19 10:00 12/31/19 09:22 Hctz - PO 25 mg DAILY TAMMY Administration Multivitamins/Minerals/Vitamin C 1 tab 12/28/19 10:00 12/31/19 09:21 Tab-A-Vit - PO 1 tab DAILY TAMMY Administration Mupirocin 1 applic 12/27/19 22:00 12/31/19 09:33 Bactroban Ointment (For Decolonization) - NS 01/01/20 21:59 1 applic BID TAMMY Administration Naloxone HCl 0.4 mg 12/27/19 16:15 Narcan - IVPUSH ONCE PRN Sedation Oxycodone HCl 10 mg 12/28/19 16:17 12/31/19 09:24 Oxycontin - PO Not Given BID TAMMY Pantoprazole Sodium 20 mg 12/28/19 10:00 12/31/19 09:22 Protonix - PO 20 mg DAILY TAMMY Administration Polyethylene Glycol 17 gm 12/29/19 12:15 12/31/19 09:23 Miralax (For Daily Use) - PO 17 gm DAILY TAMMY Administration Tamsulosin HCl 0.4 mg 12/28/19 08:30 12/31/19 08:32 Flomax - PO 0.4 mg 0830 TAMMY Administration Venlafaxine HCl 75 mg 12/27/19 22:00 06/29/20 09:22 Effexor Xr - PO 75 mg BID TAMMY Administration Vital Signs Period Temp Pulse Resp BP Sys/Henry Pulse Ox Last 24 Hr 98.3 F-101.5 F 80-96 12-26 115-146/45-98 93-100 Constitutional: Yes: Well Nourished, No Distress, Calm Cardiovascular: Yes: Regular Rate and Rhythm. No: JVD, Gallop, Murmur Respiratory: Yes: Regular, CTA Bilaterally. No: Accessory Muscle Use Extremities: No: Cold Edema: No (SCDs) Neurological: Yes: Alert. No: Lethargy, Seizure Psychiatric: No: Agitated Labs: CBC, BMP 12/31/19 05:46 12/31/19 05:46 Assessment/Plan tele: SR, brief atrial run echo 12/2019: nl lv/rv, no sig valve path a/p: 74 m hx htn, hld, hx pacs and pvcs, svt s/p ablation 2017, s/p elective spine surgery. sinus with frequent APCs, PSVT, nonsustained VT: -tele benign -echo here unremarkable htn: -bp stable -cont current meds hld: -cont home med svt s/p ablation: -has been in sr here, brief run PSVT on tele s/p laminectomy: -Post op management as per Critical Care an Neurosurgery
--- NOTE | 2019-12-31 13:06 | PN ---
Progress Note (short form) - Note Progress Note: 74yo M s/p T12-S2 PLIF. Pt seen and examined in ICU. Pt states he feels much better and wants to get out of bed and walk with PT. Pt was give 1 unit pRBCs yesterday for anemia. Pt states he feels much better today and no longer feels woozy or seeing double. Pt denies numbness or weakness in his extremities. Vital Signs Temp 99.3 F 12/31/19 10:00 Pulse 90 12/31/19 12:00 Resp 15 12/31/19 12:00 BP 153/81 12/31/19 12:00 Pulse Ox 93 L 12/31/19 09:00 Intake & Output 12/30/19 12/31/19 12/31/19 23:59 11:59 23:59 Intake Total 1130 300 Output Total 1380 510 Balance -250 -210 Intake: IVPB 300 Oral 480 300 Packed Cells 350 Output: Drainage 110 110 Back 110 110 Urine 1270 400 Anna 1270 400 Other: Voiding Method Indwelling Catheter Indwelling Catheter Bowel Movement No CBC, BMP 12/31/19 05:46 12/31/19 05:46 PE: Gen: A&O X3 Resp: breathing comfortably Back: incision clean with no erythema or discharge, drainage serosanguinous Ext: no weakness or numbness. Problem List - Problems (1) S/P laminectomy Assessment/Plan: Plan -pt cleared from surgical standpoint for transfer from ICU, will defer to Medicine/Cardiology for cardiac issues -OOB/ambulate with TLSO brace -regular diet -DVT ppx Pt discussed with Dr. Chaney, who agrees with plan. Code(s): Z98.890 - OTHER SPECIFIED POSTPROCEDURAL STATES
--- NOTE | 2019-12-31 13:26 | PN ---
Teaching Attending Note Name of Resident: Sree Torres ATTENDING PHYSICIAN STATEMENT I saw and evaluated the patient. I reviewed the resident's note and discussed the case with the resident. I agree with the resident's findings and plan as documented. SUBJECTIVE: Patient seen and examined in the ICU. Awake and alert. Apparently was mildly confused/agitated overnight. No CP or SOB. (+) Back pain : 01/10 Intake & Output 12/28/19 12/29/19 12/30/19 12/31/19 23:59 23:59 23:59 23:59 Intake Total 2245 2295 1584 300 Output Total 2132 2604 2310 510 Balance 113 -309 -726 -210 Weight 180 lb Last Vital Signs Temp Pulse Resp BP Pulse Ox 99.3 F 90 15 153/81 93 L 12/31/19 10:00 12/31/19 12:00 12/31/19 12:00 12/31/19 12:00 12/31/19 09:00 Active Medications Ascorbic Acid (Vitamin C -) 500 mg PO BID [facility] Last Admin: 12/31/19 09:22 Dose: 500 mg Documented by: Atorvastatin Calcium (Lipitor -) 40 mg PO [facility] Last Admin: 12/30/19 21:32 Dose: 40 mg Documented by: Chlorhexidine Gluconate (Hibiclens For Decolonization -) 1 applic TP [facility] Last Admin: 12/30/19 22:08 Dose: 1 applic Documented by: Clonazepam (Klonopin -) 1 mg PO BID PRN PRN Reason: ANXIETY Diphenhydramine HCl (Benadryl Injection -) 25 mg IVPUSH ONCE PRN PRN Reason: FOR ITCHING Hydrochlorothiazide (Hctz -) 25 mg PO DAILY [facility] Last Admin: 12/31/19 09:22 Dose: 25 mg Documented by: Multivitamins/Minerals/Vitamin C (Tab-A-Vit -) 1 tab PO DAILY [facility] Last Admin: 12/31/19 09:21 Dose: 1 tab Documented by: Mupirocin (Bactroban Ointment (For Decolonization) -) 1 applic NS BID [facility] Stop: 01/01/20 21:59 Last Admin: 12/31/19 09:33 Dose: 1 applic Documented by: Naloxone HCl (Narcan -) 0.4 mg IVPUSH ONCE PRN PRN Reason: Sedation Oxycodone HCl (Oxycontin -) 10 mg PO BID [facility] Last Admin: 12/31/19 09:24 Dose: Not Given Documented by: Pantoprazole Sodium (Protonix -) 20 mg PO DAILY [facility] Last Admin: 12/31/19 09:22 Dose: 20 mg Documented by: Polyethylene Glycol (Miralax (For Daily Use) -) 17 gm PO DAILY [facility] Last Admin: 12/31/19 09:23 Dose: 17 gm Documented by: Tamsulosin HCl (Flomax -) 0.4 mg PO 30 [facility] Last Admin: 12/31/19 08:32 Dose: 0.4 mg Documented by: Venlafaxine HCl (Effexor Xr -) 75 mg PO BID [facility] Last Admin: 12/31/19 09:22 Dose: 75 mg Documented by: GENERAL: Awake and alert HEAD: Normal with no signs of trauma. EYES: (-) Pallor ENT: nares patent NECK: Trachea midline, full range of motion, supple. LUNGS: Clear to auscultation bilaterally, no wheezes, no crackles, no accessory muscle use. HEART: Regular rate and rhythm, S1, S2 without murmur, rub or gallop. ABDOMEN: Soft, nontender, nondistended, normoactive bowel sounds, no guarding, no rebound, no hepatosplenomegaly, no masses. EXTREMITIES: 2+ pulses, warm, well-perfused, no edema. NEUROLOGICAL: Non-focal SKIN: warm, dry, normal turgor, no rashes or lesions noted Laboratory Results - last 24 hr 12/27/19 12/31/19 12/31/19 06:10 05:46 05:46 WBC 7.4 RBC 2.99 L Hgb 9.0 L Hct 26.6 L D MCV 88.9 MCH 30.2 MCHC 33.9 RDW 14.3 Plt Count 139 D MPV 9.1 Absolute Neuts (auto) 5.7 Neutrophils % 76.4 Lymphocytes % 15.5 Monocytes % 6.3 Eosinophils % 1.5 D Basophils % 0.3 Nucleated RBC % 0 Sodium 145 Potassium 3.5 Chloride 105 Carbon Dioxide 36 H Anion Gap 4 L BUN 11.6 Creatinine 0.8 Est GFR (CKD-EPI)AfAm 103.44 Est GFR (CKD-EPI)NonAf 89.25 Random Glucose 131 H Calcium 7.8 L Phosphorus 2.4 L Magnesium 2.1 Total Bilirubin 0.4 AST 23 ALT 24 Alkaline Phosphatase 117 Total Protein 5.2 L Albumin 2.3 L Blood Type B POSITIVE Antibody Screen Negative Crossmatch See Detail ASSESSMENT/PLAN: Acute Respiratory Insufficiency POD #4: S/P T12 to S2 laminectomies, decompression, and fusion HTN HPL History of PACs & PVCs & SVT S/P ablation 2017 Pain control Incentive Spirometry VTE prophylaxis PPI Normal transfusion thresholds Follow Neuro exam PT Cardiac Telemetry monitoring Dr Issa
--- NOTE | 2019-12-31 13:39 | PN ---
Physical Exam: SUBJECTIVE: Patient seen and examined. Pt feeling much better. No acute events overnight. Pt reports having diplopia and mild disorientation, but improved today, no further c/o. Will f/u with neurosurgery. OBJECTIVE: Vital Signs Period Temp Pulse Resp BP Sys/Henry Pulse Ox Last 24 Hr 98.3 F-101.5 F 80-94 12-26 115-153/45-98 93-100 GENERAL: The patient is awake, alert, and fully oriented, in no acute distress. EYES: PERRL, extraocular movements intact, sclera anicteric, conjunctiva clear. No ptosis. ENT: moist mucous membranes. NECK: Trachea midline, full range of motion, supple. LUNGS: Breath sounds equal, clear to auscultation bilaterally, no wheezes, no crackles HEART: Regular rate and rhythm, S1, S2 without murmur, rub or gallop. ABDOMEN: Soft, nontender, nondistended, normoactive bowel sounds, no guarding EXTREMITIES: 2+ pulses, warm, well-perfused, no edema. NEUROLOGICAL: Cranial nerves II through XII grossly intact. Normal speech SKIN: Warm, dry, normal turgor, no rashes or lesions noted Laboratory Results - last 24 hr 12/27/19 12/31/19 12/31/19 06:10 05:46 05:46 WBC 7.4 RBC 2.99 L Hgb 9.0 L Hct 26.6 L D MCV 88.9 MCH 30.2 MCHC 33.9 RDW 14.3 Plt Count 139 D MPV 9.1 Absolute Neuts (auto) 5.7 Neutrophils % 76.4 Lymphocytes % 15.5 Monocytes % 6.3 Eosinophils % 1.5 D Basophils % 0.3 Nucleated RBC % 0 Sodium 145 Potassium 3.5 Chloride 105 Carbon Dioxide 36 H Anion Gap 4 L BUN 11.6 Creatinine 0.8 Est GFR (CKD-EPI)AfAm 103.44 Est GFR (CKD-EPI)NonAf 89.25 Random Glucose 131 H Calcium 7.8 L Phosphorus 2.4 L Magnesium 2.1 Total Bilirubin 0.4 AST 23 ALT 24 Alkaline Phosphatase 117 Total Protein 5.2 L Albumin 2.3 L Blood Type B POSITIVE Antibody Screen Negative Crossmatch See Detail Active Medications Generic Name Dose Route Start Last Admin Trade Name Freq PRN Reason Stop Dose Admin Ascorbic Acid 500 mg 12/27/19 22:00 12/31/19 09:22 Vitamin C - PO 500 mg BID TAMMY Administration Atorvastatin Calcium 40 mg 12/27/19 22:00 12/30/19 21:32 Lipitor - PO 40 mg HS TAMMY Administration Chlorhexidine Gluconate 1 applic 12/27/19 22:00 12/30/19 22:08 Hibiclens For Decolonization - TP 1 applic HS TAMMY Administration Clonazepam 1 mg 12/30/19 13:46 Klonopin - PO BID PRN ANXIETY Diphenhydramine HCl 25 mg 12/27/19 16:15 Benadryl Injection - IVPUSH ONCE PRN FOR ITCHING Hydrochlorothiazide 25 mg 12/28/19 10:00 12/31/19 09:22 Hctz - PO 25 mg DAILY TAMMY Administration Multivitamins/Minerals/Vitamin C 1 tab 12/28/19 10:00 12/31/19 09:21 Tab-A-Vit - PO 1 tab DAILY TAMMY Administration Mupirocin 1 applic 12/27/19 22:00 12/31/19 09:33 Bactroban Ointment (For Decolonization) - NS 01/01/20 21:59 1 applic BID TAMMY Administration Naloxone HCl 0.4 mg 12/27/19 16:15 Narcan - IVPUSH ONCE PRN Sedation Oxycodone HCl 10 mg 12/28/19 16:17 12/31/19 09:24 Oxycontin - PO Not Given BID TAMMY Pantoprazole Sodium 20 mg 12/28/19 10:00 12/31/19 09:22 Protonix - PO 20 mg DAILY TAMMY Administration Polyethylene Glycol 17 gm 12/29/19 12:15 12/31/19 09:23 Miralax (For Daily Use) - PO 17 gm DAILY TAMMY Administration Tamsulosin HCl 0.4 mg 12/28/19 08:30 12/31/19 08:32 Flomax - PO 0.4 mg 0830 TAMMY Administration Venlafaxine HCl 75 mg 12/27/19 22:00 12/31/19 09:22 Effexor Xr - PO 75 mg BID TAMMY Administration ASSESSMENT/PLAN: 74 M, pmh of htn, hld, hx pacs and pvcs, svt s/p ablation 2016, presents to [facility] for elective spine surgery w/ Dr. Choudhri, Stevan for lumbar spondylosis s/p T12-S2 Laminectomies, decompression, osteotomies, deformity correction, screw fusion is admitted for ICU monitoring post op #Neuro oxycodone for pain management as per surgery gabapentin d/heidi as per PMD klonopin BID Venlafaxine BID Tylenol Q6H Narcan prn once #Pulmonary stable #CV svt s/p ablation 2016 EKG shows sinus with frequent APCs, PSVT, nonsustained VT HCTZ 25 Lipitor 40 #GI protonix zofran #ID stable #Derm Benadryl for itching # flomax #Psych unable to verify dx effexor Klonopin #Heme Normocytic anemia #DVT hep sq #GI ppx Protonix FEN regular diet monitor lytes Dispo: cleared by surgery to transfer to med-surg, cont PT with TLSO brace Visit type - Emergency Visit Emergency Visit: Yes ED Registration Date: 12/27/19 Care time: The patient presented to the Emergency Department on the above date and was hospitalized for further evaluation of their emergent condition. - New Patient This patient is new to me today: Yes Date on this admission: 01/01/20 - Critical Care Critical Care patient: No - Discharge Referral Referred to [facility] Med P.C.: No ATTENDING PHYSICIAN STATEMENT I saw and evaluated the patient. I reviewed the resident's note and discussed the case with the resident. I agree with the resident's findings and plan as documented. SUBJECTIVE: OBJECTIVE: ASSESSMENT AND PLAN:
--- NOTE | 2019-12-31 17:06 | PN ---
Progress Note, Physician History of Present Illness: Pt seen/ examined in icu chart is reviewed s/p - Laminectomy comfortable at bedside. alert/ awake No complains offered - Current Medication List Current Medications: Active Medications Ascorbic Acid (Vitamin C -) 500 mg PO BID [facility] Last Admin: 12/31/19 09:22 Dose: 500 mg Documented by: Atorvastatin Calcium (Lipitor -) 40 mg PO [facility] Last Admin: 12/30/19 21:32 Dose: 40 mg Documented by: Chlorhexidine Gluconate (Hibiclens For Decolonization -) 1 applic TP [facility] Last Admin: 12/30/19 22:08 Dose: 1 applic Documented by: Clonazepam (Klonopin -) 1 mg PO BID PRN PRN Reason: ANXIETY Diphenhydramine HCl (Benadryl Injection -) 25 mg IVPUSH ONCE PRN PRN Reason: FOR ITCHING Hydrochlorothiazide (Hctz -) 25 mg PO DAILY [facility] Last Admin: 12/31/19 09:22 Dose: 25 mg Documented by: Multivitamins/Minerals/Vitamin C (Tab-A-Vit -) 1 tab PO DAILY [facility] Last Admin: 12/31/19 09:21 Dose: 1 tab Documented by: Mupirocin (Bactroban Ointment (For Decolonization) -) 1 applic NS BID [facility] Stop: 01/01/20 21:59 Last Admin: 12/31/19 09:33 Dose: 1 applic Documented by: Naloxone HCl (Narcan -) 0.4 mg IVPUSH ONCE PRN PRN Reason: Sedation Oxycodone HCl (Oxycontin -) 10 mg PO BID [facility] Last Admin: 12/31/19 09:24 Dose: Not Given Documented by: Pantoprazole Sodium (Protonix -) 20 mg PO DAILY [facility] Last Admin: 12/31/19 09:22 Dose: 20 mg Documented by: Polyethylene Glycol (Miralax (For Daily Use) -) 17 gm PO DAILY [facility] Last Admin: 12/31/19 09:23 Dose: 17 gm Documented by: Tamsulosin HCl (Flomax -) 0.4 mg PO 829 [facility] Last Admin: 12/31/19 08:32 Dose: 0.4 mg Documented by: Venlafaxine HCl (Effexor Xr -) 75 mg PO BID [facility] Last Admin: 12/31/19 09:22 Dose: 75 mg Documented by: - Objective Vital Signs: Vital Signs Temperature 99.3 F 12/31/19 14:00 Pulse Rate 91 H 12/31/19 16:00 Respiratory Rate 12/31/19 16:00 Blood Pressure 148/64 12/31/19 16:00 O2 Sat by Pulse Oximetry (%) 93 L 12/31/19 09:00 Constitutional: Yes: No Distress, Calm Eyes: Yes: Conjunctiva Clear Neck: Yes: Supple Cardiovascular: Yes: Regular Rate and Rhythm Respiratory: Yes: CTA Bilaterally Gastrointestinal: Yes: Soft Genitourinary: Yes: Hughes Present Edema: No Neurological: Yes: Alert Psychiatric: Yes: Alert Labs: CBC, BMP 12/31/19 05:46 12/31/19 05:46 Problem List - Problems (1) S/P laminectomy Code(s): Z98.890 - OTHER SPECIFIED POSTPROCEDURAL STATES (2) Hepatitis C Code(s): B19.20 - UNSPECIFIED VIRAL HEPATITIS C WITHOUT HEPATIC COMA (3) History of cholecystectomy Code(s): Z90.49 - ACQUIRED ABSENCE OF OTHER SPECIFIED PARTS OF DIGESTIVE TRACT (4) History of penile implant Code(s): Z96.0 - PRESENCE OF UROGENITAL IMPLANTS (5) History of cardiac radiofrequency ablation Code(s): Z98.890 - OTHER SPECIFIED POSTPROCEDURAL STATES (6) Hypertension Code(s): I10 - ESSENTIAL (PRIMARY) HYPERTENSION (7) Generalized anxiety disorder Code(s): F41.1 - GENERALIZED ANXIETY DISORDER (8) PTSD (post-traumatic stress disorder) Code(s): F43.10 - POST-TRAUMATIC STRESS DISORDER, UNSPECIFIED Assessment/Plan Stable continue present care hughes to be removed drain -- to be removed tomorrow PT Incentive spirometry Will follow D/W pt/ pts as well as RN also.
--- NOTE | 2019-12-31 17:20 | PATH ---
Surgical Pathology Report Patient Name: LIYA VERA Med. Rec. 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 Specimen(s) Received SPINAL CORD STIMULATOR (REMOVED) Clinical History Lumbar spondylosis Final Diagnosis SPINAL CORD STIMULATOR, REMOVAL: CONSISTENT WITH A STIMULATOR. GROSS EXAMINATION ONLY. Electronically Signed Constantine Clifford M.D. Gross Description Received fresh labeled "spinal cord stimulator," is a 5.0 x 4.5 x 1.0 cm rodriguez metallic device, consistent with a battery. The specimen has the following inscription: "[employer] PRECISION [employer] MRI spinal cord stimulator system REF: [id number] SN: [id number]." There is a 67 cm in length portion of wire extending from one aspect of the specimen. No soft tissue is present. No sections are submitted, gross only. /12/28/2019 saudi/12/28/2019
[2019-12-31] MEDS: ACETAMINOPHEN 325 MG TABLET (FP) PO PRN (19:16)
[2019-12-31] MEDS: CHLORHEXIDINE GLUCONATE 4% CLEANSER FOR DECOLONIZATION TP SCH (21:10)
[2019-12-31] MEDS: ATORVASTATIN CA 40 MG TABLET (FP) PO SCH (21:10)
[2019-12-31] MEDS: clonazePAM 0.5 MG TABLET PO PRN (21:10)
[2020-01-01 06:13] LABS: HEMATOCRIT 27.5 % (35.4-49); HEMOGLOBIN 9.3 GM/dL (11.7-16.9); MCH 29.7 pg (25.7-33.7); MCHC 33.9 g/dl (32.0-35.9); MEAN CELL VOLUME 87.4 fl (80-96); MEAN PLT VOLUME 8.6 fl (7.5-11.1); PLATELET COUNT 158 K/MM3 (134-434); RBC 3.15 M/mm3 (4.00-5.60); RDW 14.4 % (11.9-15.9)
[2020-01-01 06:47] LABS: BLOOD UREA NITROGEN 10.4 mg/dL (7-18); CALCIUM 8.2 mg/dL (8.5-10.1); CREATININE 0.7 mg/dL (0.55-1.3); MAGNESIUM 2.2 mg/dL (1.8-2.4); PHOSPHOROUS 3.6 mg/dL (2.5-4.9); POTASSIUM 3.6 mmol/L (3.5-5.1)
--- NOTE | 2020-01-01 07:51 | PN ---
Progress Note (short form) - Note Progress Note: NEUROSURGERY POD #5 No acute events over past 24hrs per RN notes. Patient is alert. In bed RLR as laying supine is a bit uncomfortable. C/o mild incisional tenderness. Adequate pain control with medications ordered. Was OOB yesterday with PT (notes reviewed). Voiding spontaneously. Received 1 pRBC yesterday. Denies n/v/f/c, CP, palpitations, parasthesias, numbness/tingling Last Vital Signs Temp Pulse Resp BP Pulse Ox 98.3 F 84 30 H 164/98 97 01/01/20 06:00 01/01/20 06:00 01/01/20 06:00 01/01/20 06:00 12/31/19 19:34 CBC, BMP 01/01/20 05:25 01/01/20 05:25 24Hr Drain Output 12/31/19 12/31/19 12/31/19 12/31/19 01/01/20 07:06 10:00 15:00 23:00 06:45 Lumbar ADRIANE 80 30 45 40 60 PE Gen: A&O X3 Resp: breathing comfortably Back: incision clean with no erythema or discharge, drainage serosanguinous Ext: no weakness or numbness. A/P: POD #5 s/p T12-S2 Laminectomies with L34, L45 and L5S1 transpedicular decompression and osteotomies and deformity correction T12-S2 pedicle screw fusion with athrodesis and interbody cage at L5-S1 - Downgrade to floor - Cont OOB and mobilize with PT - Cardio f/u - Must wear TLSO brace while seated in chair or while ambulating - Sodium controlled diet - DVT PPx - If patient accepted to [facility] and can be arranged for transfer today, Surgery PAs will remove ADRIANE drain prior to dc (until then, cont to record output) - IV ABX to cont while ADRIANE drain remains in Above plan discussed with Dr. Chaney and agrees. Problem List - Problems (1) Fusion of spine, thoracolumbar region Code(s): M43.25 - FUSION OF SPINE, THORACOLUMBAR REGION (2) Hepatitis C Code(s): B19.20 - UNSPECIFIED VIRAL HEPATITIS C WITHOUT HEPATIC COMA (3) Anxiety and depression Code(s): F41.8 - OTHER SPECIFIED ANXIETY DISORDERS (4) Hypercholesterolemia Code(s): E78.00 - PURE HYPERCHOLESTEROLEMIA, UNSPECIFIED (5) Hypertension Code(s): I10 - ESSENTIAL (PRIMARY) HYPERTENSION (6) PTSD (post-traumatic stress disorder) Code(s): F43.10 - POST-TRAUMATIC STRESS DISORDER, UNSPECIFIED
[2020-01-01] MEDS: TAMSULOSIN HCL 0.4 MG CAP PO SCH (08:38)
[2020-01-01] MEDS ORDERED: PT OWN MED DRAWER 7, Y5N ONE (09:59)
[2020-01-01] MEDS: PANTOPRAZOLE 20 MG TABLET PO SCH (10:00)
[2020-01-01] MEDS: MULTIVITAMINS (DAILY MVI) TABLET (FP) PO SCH (10:00)
[2020-01-01] MEDS: HYDROCHLOROTHIAZIDE 25 MG TABLET (FP) PO SCH (10:00)
[2020-01-01] MEDS: oxyCODONE HCL 10 MG SUSTAINED ACTING TABLET PO SCH ×2 (10:00→22:08)
[2020-01-01] MEDS: ASCORBIC ACID 500 MG TABLET (FP) PO SCH ×2 (10:00→22:07)
[2020-01-01] MEDS: VENLAFAXINE HCL 75 MG E.R. CAPSULES PO SCH ×2 (10:00→22:07)
[2020-01-01] MEDS: POLYETHYLENE GLYCOL 3350 119 GM BTL PO SCH (10:03)
[2020-01-01] MEDS: MUPIROCIN 2% TOPICAL OINTMENT FOR DECOLONIZATION NS SCH (10:03)
--- NOTE | 2020-01-01 11:36 | PN ---
Teaching Attending Note Name of Resident: Sree Torres ATTENDING PHYSICIAN STATEMENT I saw and evaluated the patient. I reviewed the resident's note and discussed the case with the resident. I agree with the resident's findings and plan as documented. SUBJECTIVE: Patient seen and examined in the ICU. Awake and alert. No CP or SOB. Less back pain today. Intake & Output 12/29/19 12/30/19 12/31/19 01/01/20 23:59 23:59 23:59 23:59 Intake Total 2295 1584 800 250 Output Total 2604 2310 1595 260 Balance -309 -726 -795 -10 Last Vital Signs Temp Pulse Resp BP Pulse Ox 98 F 90 22 H 131/71 95 01/01/20 10:00 01/01/20 10:00 01/01/20 10:00 01/01/20 10:00 01/01/20 09:00 Active Medications Acetaminophen (Tylenol -) 650 mg PO Q6H PRN PRN Reason: FEVER Last Admin: 12/31/19 19:16 Dose: 650 mg Documented by: Ascorbic Acid (Vitamin C -) 500 mg PO BID [facility] Last Admin: 01/01/20 10:00 Dose: 500 mg Documented by: Atorvastatin Calcium (Lipitor -) 40 mg PO HS [facility] Last Admin: 12/31/19 21:10 Dose: 40 mg Documented by: Chlorhexidine Gluconate (Hibiclens For Decolonization -) 1 applic TP HS [facility] Last Admin: 12/31/19 21:10 Dose: 1 applic Documented by: Clonazepam (Klonopin -) 1 mg PO BID PRN PRN Reason: ANXIETY Last Admin: 12/31/19 21:10 Dose: 1 mg Documented by: Diphenhydramine HCl (Benadryl Injection -) 25 mg IVPUSH ONCE PRN PRN Reason: FOR ITCHING Hydrochlorothiazide (Hctz -) 25 mg PO DAILY [facility] Last Admin: 01/01/20 10:00 Dose: 25 mg Documented by: Multivitamins/Minerals/Vitamin C (Tab-A-Vit -) 1 tab PO DAILY [facility] Last Admin: 01/01/20 10:00 Dose: 1 tab Documented by: Mupirocin (Bactroban Ointment (For Decolonization) -) 1 applic NS BID [facility] Stop: 01/01/20 21:59 Last Admin: 01/01/20 10:03 Dose: 1 applic Documented by: Naloxone HCl (Narcan -) 0.4 mg IVPUSH ONCE PRN PRN Reason: Sedation Oxycodone HCl (Oxycontin -) 10 mg PO BID [facility] Last Admin: 12/31/19 21:11 Dose: Not Given Documented by: Pantoprazole Sodium (Protonix -) 20 mg PO DAILY [facility] Last Admin: 01/01/20 10:00 Dose: 20 mg Documented by: Polyethylene Glycol (Miralax (For Daily Use) -) 17 gm PO DAILY [facility] Last Admin: 01/01/20 10:03 Dose: 17 gm Documented by: Tamsulosin HCl (Flomax -) 0.4 mg PO 30 [facility] Last Admin: 01/01/20 08:38 Dose: 0.4 mg Documented by: Venlafaxine HCl (Effexor Xr -) 75 mg PO BID [facility] Last Admin: 01/01/20 10:00 Dose: 75 mg Documented by: GENERAL: Awake and alert HEAD: Normal with no signs of trauma. EYES: (-) Pallor ENT: nares patent NECK: Trachea midline, full range of motion, supple. LUNGS: Clear to auscultation bilaterally, no wheezes, no crackles, no accessory muscle use. HEART: Regular rate and rhythm, S1, S2 without murmur, rub or gallop. ABDOMEN: Soft, nontender, nondistended, normoactive bowel sounds, no guarding, no rebound, no hepatosplenomegaly, no masses. EXTREMITIES: 2+ pulses, warm, well-perfused, no edema. NEUROLOGICAL: Non-focal SKIN: warm, dry, normal turgor, no rashes or lesions noted Laboratory Results - last 24 hr 01/01/20 01/01/20 05:25 05:25 WBC 7.0 RBC 3.15 L Hgb 9.3 L Hct 27.5 L MCV 87.4 MCH 29.7 MCHC 33.9 RDW 14.4 Plt Count 158 MPV 8.6 Sodium 143 Potassium 3.6 Chloride 104 Carbon Dioxide 34 H Anion Gap 6 L BUN 10.4 Creatinine 0.7 Est GFR (CKD-EPI)AfAm 109.27 Est GFR (CKD-EPI)NonAf 94.28 Random Glucose 104 Calcium 8.2 L Phosphorus 3.6 Magnesium 2.2 ASSESSMENT/PLAN: Acute Respiratory Insufficiency POD #4: S/P T12 to S2 laminectomies, decompression, and fusion HTN HPL History of PACs & PVCs & SVT S/P ablation 2017 Pain control Incentive Spirometry VTE prophylaxis Normal transfusion thresholds PT DC planning Dr Issa
[2020-01-01] MEDS: ACETAMINOPHEN 325 MG TABLET (FP) PO PRN (11:40)
--- NOTE | 2020-01-01 13:00 | PN ---
Physical Exam: SUBJECTIVE: Patient seen and examined. Pt feeling much better. No acute events overnight. Pt reports having confusion and disorientation, but improved today, no further c/o. Will f/u with neurosurgery. OBJECTIVE: Vital Signs Period Temp Pulse Resp BP Sys/Henry Pulse Ox Last 24 Hr 98 F-101.4 F 75-93 16-30 128-164/53-98 95-97 GENERAL: The patient is awake, alert, and fully oriented, in no acute distress. EYES: PERRL, extraocular movements intact, sclera anicteric, conjunctiva clear. No ptosis. ENT: moist mucous membranes. NECK: Trachea midline, full range of motion, supple. LUNGS: Breath sounds equal, clear to auscultation bilaterally, no wheezes, no crackles HEART: Regular rate and rhythm, S1, S2 without murmur, rub or gallop. ABDOMEN: Soft, nontender, nondistended, normoactive bowel sounds, no guarding EXTREMITIES: 2+ pulses, warm, well-perfused, no edema. NEUROLOGICAL: Cranial nerves II through XII grossly intact. Normal speech SKIN: Warm, dry, normal turgor, no rashes or lesions noted Laboratory Results - last 24 hr 01/01/20 01/01/20 05:25 05:25 WBC 7.0 RBC 3.15 L Hgb 9.3 L Hct 27.5 L MCV 87.4 MCH 29.7 MCHC 33.9 RDW 14.4 Plt Count 158 MPV 8.6 Sodium 143 Potassium 3.6 Chloride 104 Carbon Dioxide 34 H Anion Gap 6 L BUN 10.4 Creatinine 0.7 Est GFR (CKD-EPI)AfAm 109.27 Est GFR (CKD-EPI)NonAf 94.28 Random Glucose 104 Calcium 8.2 L Phosphorus 3.6 Magnesium 2.2 Active Medications Generic Name Dose Route Start Last Admin Trade Name Freq PRN Reason Stop Dose Admin Acetaminophen 650 mg 12/31/19 18:58 01/01/20 11:40 Tylenol - PO 650 mg Q6H PRN Administration FEVER Ascorbic Acid 500 mg 12/27/19 22:00 01/01/20 10:00 Vitamin C - PO 500 mg BID TAMMY Administration Atorvastatin Calcium 40 mg 12/27/19 22:00 12/31/19 21:10 Lipitor - PO 40 mg HS TAMMY Administration Chlorhexidine Gluconate 1 applic 12/27/19 22:00 12/31/19 21:10 Hibiclens For Decolonization - TP 1 applic HS TAMMY Administration Clonazepam 1 mg 12/30/19 13:46 12/31/19 21:10 Klonopin - PO 1 mg BID PRN Administration ANXIETY Diphenhydramine HCl 25 mg 12/27/19 16:15 Benadryl Injection - IVPUSH ONCE PRN FOR ITCHING Hydrochlorothiazide 25 mg 12/28/19 10:00 01/01/20 10:00 Hctz - PO 25 mg DAILY TAMMY Administration Multivitamins/Minerals/Vitamin C 1 tab 12/28/19 10:00 01/01/20 10:00 Tab-A-Vit - PO 1 tab DAILY ATMMY Administration Mupirocin 1 applic 12/27/19 22:00 01/01/20 10:03 Bactroban Ointment (For Decolonization) - NS 01/01/20 21:59 1 applic BID TAMMY Administration Naloxone HCl 0.4 mg 12/27/19 16:15 Narcan - IVPUSH ONCE PRN Sedation Oxycodone HCl 10 mg 12/28/19 16:17 01/01/20 10:00 Oxycontin - PO Not Given BID TAMMY Pantoprazole Sodium 20 mg 12/28/19 10:00 01/01/20 10:00 Protonix - PO 20 mg DAILY TAMMY Administration Polyethylene Glycol 17 gm 12/29/19 12:15 01/01/20 10:03 Miralax (For Daily Use) - PO 17 gm DAILY TAMMY Administration Tamsulosin HCl 0.4 mg 12/28/19 08:30 01/01/20 08:38 Flomax - PO 0.4 mg 0830 TAMMY Administration Venlafaxine HCl 75 mg 12/27/19 22:00 01/01/20 10:00 Effexor Xr - PO 75 mg BID TAMMY Administration ASSESSMENT/PLAN: 74 M, pmh of htn, hld, hx pacs and pvcs, svt s/p ablation 2016, presents to [facility] for elective spine surgery w/ Stevan Godfrey for lumbar spondylosis s/p T12-S2 Laminectomies, decompression, osteotomies, deformity correction, screw fusion is admitted for ICU monitoring post op #Neuro oxycodone for pain management as per surgery gabapentin d/heidi as per PMD klonopin BID Venlafaxine BID Tylenol Q6H Narcan prn once #Pulmonary stable #CV svt s/p ablation 2016 EKG shows sinus with frequent APCs, PSVT, nonsustained VT HCTZ 25 Lipitor 40 #GI protonix zofran #ID stable #Derm Benadryl for itching # flomax #Psych unable to verify dx effexor Klonopin #Heme Normocytic anemia #DVT hep sq #GI ppx Protonix FEN regular diet monitor marco antonio Dispo: cleared by surgery for discharge, cont PT with TLSO brace. Pt accepted to [place]. Pt febrile last night, will wait 24hrs before sending to rehab, bed currently being held. D/c on hold as per Primary care physician. Visit type - Emergency Visit Emergency Visit: Yes ED Registration Date: 12/27/19 Care time: The patient presented to the Emergency Department on the above date and was hospitalized for further evaluation of their emergent condition. - New Patient This patient is new to me today: Yes Date on this admission: 01/01/20 - Critical Care Critical Care patient: No - Discharge Referral Referred to [facility] Med P.C.: No ATTENDING PHYSICIAN STATEMENT I saw and evaluated the patient. I reviewed the resident's note and discussed the case with the resident. I agree with the resident's findings and plan as documented. SUBJECTIVE: OBJECTIVE: ASSESSMENT AND PLAN:
--- NOTE | 2020-01-01 15:04 | PN ---
Progress Note (short form) - Note Progress Note: POD#5 Laminectomy at bedside noted he had spiked a temp last night and the night before no diarrhea, no abd pain back pain controlled no cough or SOB ADRIANE drain removed Vital Signs - 24 hr 12/31/19 12/31/19 12/31/19 16:00 18:00 19:34 Temperature 101.4 F H Pulse Rate 91 H 91 H Respiratory 20 20 Rate Blood Pressure 148/64 145/83 O2 Sat by Pulse 97 Oximetry (%) 12/31/19 12/31/19 01/01/20 20:00 22:00 00:00 Temperature 99.5 F Pulse Rate 89 88 75 Respiratory 20 24 H 22 H Rate Blood Pressure 130/86 139/53 L 128/64 O2 Sat by Pulse Oximetry (%) 01/01/20 01/01/20 01/01/20 02:00 04:00 06:00 Temperature 98.6 F 98.3 F Pulse Rate 80 77 84 Respiratory 23 H 22 H 30 H Rate Blood Pressure 144/83 151/67 164/98 O2 Sat by Pulse Oximetry (%) 01/01/20 01/01/20 01/01/20 08:00 09:00 10:00 Temperature 98 F Pulse Rate 86 90 Respiratory 20 22 H Rate Blood Pressure 134/76 131/71 O2 Sat by Pulse 95 Oximetry (%) 01/01/20 01/01/20 12:00 14:00 Temperature 99.5 F Pulse Rate 88 Respiratory 20 20 Rate Blood Pressure 135/72 140/79 O2 Sat by Pulse Oximetry (%) Current Medications Generic Name Dose Route Start Last Admin Trade Name Mtaq PRN Reason Stop Dose Admin Acetaminophen 650 mg 12/31/19 18:58 01/01/20 11:40 Tylenol - PO 650 mg Q6H PRN Administration FEVER Ascorbic Acid 500 mg 12/27/19 22:00 01/01/20 10:00 Vitamin C - PO 500 mg BID TAMMY Administration Atorvastatin Calcium 40 mg 12/27/19 22:00 12/31/19 21:10 Lipitor - PO 40 mg HS TAMMY Administration Chlorhexidine Gluconate 1 applic 12/27/19 22:00 12/31/19 21:10 Hibiclens For Decolonization - TP 1 applic HS TAMMY Administration Clonazepam 1 mg 12/30/19 13:46 06/29/20 21:10 Klonopin - PO 1 mg BID PRN Administration ANXIETY Diphenhydramine HCl 25 mg 12/27/19 16:15 Benadryl Injection - IVPUSH ONCE PRN FOR ITCHING Hydrochlorothiazide 25 mg 12/28/19 10:00 01/01/20 10:00 Hctz - PO 25 mg DAILY TAMMY Administration Multivitamins/Minerals/Vitamin C 1 tab 12/28/19 10:00 01/01/20 10:00 Tab-A-Vit - PO 1 tab DAILY TAMMY Administration Mupirocin 1 applic 12/27/19 22:00 01/01/20 10:03 Bactroban Ointment (For Decolonization) - NS 01/01/20 21:59 1 applic BID TAMMY Administration Naloxone HCl 0.4 mg 12/27/19 16:15 Narcan - IVPUSH ONCE PRN Sedation Oxycodone HCl 10 mg 12/28/19 16:17 01/01/20 10:00 Oxycontin - PO Not Given BID TAMMY Pantoprazole Sodium 20 mg 12/28/19 10:00 01/01/20 10:00 Protonix - PO 20 mg DAILY TAMMY Administration Polyethylene Glycol 17 gm 12/29/19 12:15 01/01/20 10:03 Miralax (For Daily Use) - PO 17 gm DAILY TAMMY Administration Tamsulosin HCl 0.4 mg 12/28/19 08:30 01/01/20 08:38 Flomax - PO 0.4 mg 0830 TAMMY Administration Venlafaxine HCl 75 mg 12/27/19 22:00 01/01/20 10:00 Effexor Xr - PO 75 mg BID TAMMY Administration Laboratory Results - last 24 hr 01/01/20 01/01/20 05:25 05:25 WBC 7.0 RBC 3.15 L Hgb 9.3 L Hct 27.5 L MCV 87.4 MCH 29.7 MCHC 33.9 RDW 14.4 Plt Count 158 MPV 8.6 Sodium 143 Potassium 3.6 Chloride 104 Carbon Dioxide 34 H Anion Gap 6 L BUN 10.4 Creatinine 0.7 Est GFR (CKD-EPI)AfAm 109.27 Est GFR (CKD-EPI)NonAf 94.28 Random Glucose 104 Calcium 8.2 L Phosphorus 3.6 Magnesium 2.2 S1 S2 RRR Lungs decreased Abd- soft, obese, NT no edema A/P Problem List - Problems (1) S/P laminectomy Assessment/Plan: pain control- may give tylenol -- try to use Oxycodone sparingly Pt eval Back brace Problems reviewed: Yes Code(s): Z98.890 - OTHER SPECIFIED POSTPROCEDURAL STATES (2) Hepatitis C Assessment/Plan: s/p treatment Problems reviewed: Yes Code(s): B19.20 - UNSPECIFIED VIRAL HEPATITIS C WITHOUT HEPATIC COMA (3) History of cholecystectomy Assessment/Plan: no active issues Problems reviewed: Yes Code(s): Z90.49 - ACQUIRED ABSENCE OF OTHER SPECIFIED PARTS OF DIGESTIVE TRACT (4) History of penile implant Assessment/Plan: No active issues Problems reviewed: Yes Code(s): Z96.0 - PRESENCE OF UROGENITAL IMPLANTS (5) History of cardiac radiofrequency ablation Assessment/Plan: cardiology following Code(s): Z98.890 - OTHER SPECIFIED POSTPROCEDURAL STATES (6) Hypertension Assessment/Plan: on meds Problems reviewed: Yes Code(s): I10 - ESSENTIAL (PRIMARY) HYPERTENSION (7) Generalized anxiety disorder Problems reviewed: Yes Code(s): F41.1 - GENERALIZED ANXIETY DISORDER (8) PTSD (post-traumatic stress disorder) Problems reviewed: Yes Code(s): F43.10 - POST-TRAUMATIC STRESS DISORDER, UNSPECIFIED Anemia-->monitor , no active bleeding hypokalemia-- replace lytes, replace Phosphorus Fever -- he was confused during the weekend cultures pending normal WBC CXR normal start DVT prophylaxis Hold off discharge today-- if he remains afebrile for 24 hours , with negative blood cultures, will dc him to [facility]-- RN, manager social responsibility made aware Problem List - Problems (1) Hepatitis C Code(s): B19.20 - UNSPECIFIED VIRAL HEPATITIS C WITHOUT HEPATIC COMA (2) S/P laminectomy Code(s): Z98.890 - OTHER SPECIFIED POSTPROCEDURAL STATES (3) History of back surgery Code(s): Z98.890 - OTHER SPECIFIED POSTPROCEDURAL STATES (4) Hypercholesterolemia Code(s): E78.00 - PURE HYPERCHOLESTEROLEMIA, UNSPECIFIED (5) Hypertension Code(s): I10 - ESSENTIAL (PRIMARY) HYPERTENSION (6) PTSD (post-traumatic stress disorder) Code(s): F43.10 - POST-TRAUMATIC STRESS DISORDER, UNSPECIFIED
--- NOTE | 2020-01-01 15:58 | PN ---
Progress Note (short form) - Note Progress Note: Chief Complaint: atrial arrhythmia History of Present Illness: denies sob, cp, palp, dizzy Current Medications Generic Name Dose Route Start Last Admin Trade Name Erlin PRN Reason Stop Dose Admin Acetaminophen 650 mg 12/31/19 18:58 01/01/20 11:40 Tylenol - PO 650 mg Q6H PRN Administration FEVER Ascorbic Acid 500 mg 12/27/19 22:00 01/01/20 10:00 Vitamin C - PO 500 mg BID TAMMY Administration Atorvastatin Calcium 40 mg 12/27/19 22:00 12/31/19 21:10 Lipitor - PO 40 mg HS TAMMY Administration Chlorhexidine Gluconate 1 applic 12/27/19 22:00 12/31/19 21:10 Hibiclens For Decolonization - TP 1 applic HS TAMMY Administration Clonazepam 1 mg 12/30/19 13:46 12/31/19 21:10 Klonopin - PO 1 mg BID PRN Administration ANXIETY Diphenhydramine HCl 25 mg 12/27/19 16:15 Benadryl Injection - IVPUSH ONCE PRN FOR ITCHING Enoxaparin Sodium 40 mg 01/02/20 10:00 Lovenox - SQ DAILY TAMMY Hydrochlorothiazide 25 mg 12/28/19 10:00 01/01/20 10:00 Hctz - PO 25 mg DAILY TAMMY Administration Multivitamins/Minerals/Vitamin C 1 tab 12/28/19 10:00 01/01/20 10:00 Tab-A-Vit - PO 1 tab DAILY TAMMY Administration Mupirocin 1 applic 12/27/19 22:00 01/01/20 10:03 Bactroban Ointment (For Decolonization) - NS 01/01/20 21:59 1 applic BID TAMMY Administration Naloxone HCl 0.4 mg 12/27/19 16:15 Narcan - IVPUSH ONCE PRN Sedation Oxycodone HCl 10 mg 12/28/19 16:17 01/01/20 10:00 Oxycontin - PO Not Given BID TAMMY Pantoprazole Sodium 20 mg 12/28/19 10:00 01/01/20 10:00 Protonix - PO 20 mg DAILY TAMMY Administration Polyethylene Glycol 17 gm 12/29/19 12:15 01/01/20 10:03 Miralax (For Daily Use) - PO 17 gm DAILY TAMMY Administration Tamsulosin HCl 0.4 mg 12/28/19 08:30 01/01/20 08:38 Flomax - PO 0.4 mg 0830 TAMMY Administration Venlafaxine HCl 75 mg 12/27/19 22:00 01/01/20 10:00 Effexor Xr - PO 75 mg BID TAMMY Administration Vital Signs Period Temp Pulse Resp BP Sys/Henry Pulse Ox Last 24 Hr 98 F-101.4 F 75-91 20-30 128-164/53-98 95-97 Constitutional: Yes: Well Nourished, No Distress, Calm Cardiovascular: Yes: Regular Rate and Rhythm. No: JVD, Gallop, Murmur Respiratory: Yes: Regular, CTA Bilaterally. No: Accessory Muscle Use abd: soft, ND, NT + bs Extremities: No: Cold Edema: No (SCDs) Neurological: Yes: Alert. No: Lethargy, Seizure Psychiatric: No: Agitated no jaundice, diaphoresis Assessment/Plan tele: SR, brief atrial run echo 12/2019: nl lv/rv, no sig valve path a/p: 74 m hx htn, hld, hx pacs and pvcs, svt s/p ablation 2017, s/p elective spine surgery. sinus with frequent APCs, PSVT, nonsustained VT: -tele benign -echo here unremarkable htn: -cont current meds hld: -cont home med svt s/p ablation: -has been in sr here, brief run PSVT on tele s/p laminectomy: -Post op management as per Critical Care an Neurosurgery
[2020-01-01] MEDS: CHLORHEXIDINE GLUCONATE 4% CLEANSER FOR DECOLONIZATION TP SCH (22:06)
[2020-01-01] MEDS: ATORVASTATIN CA 40 MG TABLET (FP) PO SCH (22:07)
[2020-01-01] MEDS: clonazePAM 0.5 MG TABLET PO PRN (22:16)
[2020-01-02] MEDS ORDERED: NALOXONE HCL 0.4 MG/ML VIAL IVPUSH PRN (00:42)
[2020-01-02] MEDS: ACETAMINOPHEN 325 MG TABLET (FP) PO PRN ×2 (05:01→16:15)
[2020-01-02] MEDS: PANTOPRAZOLE 20 MG TABLET PO SCH (06:00)
[2020-01-02 08:26] LABS: HEMATOCRIT 27.2 % (35.4-49); HEMOGLOBIN 9.2 GM/dL (11.7-16.9); MCH 29.8 pg (25.7-33.7); MCHC 33.9 g/dl (32.0-35.9); MEAN CELL VOLUME 87.9 fl (80-96); MEAN PLT VOLUME 8.8 fl (7.5-11.1); PLATELET COUNT 192 K/MM3 (134-434); RDW 14.3 % (11.9-15.9); WHITE BLOOD COUNT 7.9 K/mm3 (4.0-10.0)
[2020-01-02] MEDS: clonazePAM 0.5 MG TABLET PO PRN ×2 (11:10→21:31)
[2020-01-02] MEDS: VENLAFAXINE HCL 75 MG E.R. CAPSULES PO SCH ×2 (11:10→21:29)
[2020-01-02] MEDS: ASCORBIC ACID 500 MG TABLET (FP) PO SCH ×2 (11:10→21:31)
[2020-01-02] MEDS: TAMSULOSIN HCL 0.4 MG CAP PO SCH (11:10)
[2020-01-02] MEDS: HYDROCHLOROTHIAZIDE 25 MG TABLET (FP) PO SCH (11:10)
[2020-01-02] MEDS: MULTIVITAMINS (DAILY MVI) TABLET (FP) PO SCH (11:11)
[2020-01-02] MEDS: ENOXAPARIN NA (PORCINE) 40 MG/0.4 ML DISP.SYRIN SQ SCH (11:11)
[2020-01-02] MEDS: POLYETHYLENE GLYCOL 3350 119 GM BTL PO SCH (11:11)
[2020-01-02] MEDS: oxyCODONE HCL 10 MG SUSTAINED ACTING TABLET PO SCH ×2 (11:12→21:30)
--- NOTE | 2020-01-02 12:04 | PN ---
Progress Note (short form) - Note Progress Note: NEUROSURGERY Patient last seen by surgical team yesterday. He was cleared by surgery for discharge as he was accepted to [facility]. Apparently, pt was febrile last night. Bed currently being held. Currently afebrile. Problem List - Problems (1) Fusion of spine, thoracolumbar region Code(s): M43.25 - FUSION OF SPINE, THORACOLUMBAR REGION (2) Hepatitis C Code(s): B19.20 - UNSPECIFIED VIRAL HEPATITIS C WITHOUT HEPATIC COMA (3) Anxiety and depression Code(s): F41.8 - OTHER SPECIFIED ANXIETY DISORDERS (4) PTSD (post-traumatic stress disorder) Code(s): F43.10 - POST-TRAUMATIC STRESS DISORDER, UNSPECIFIED
--- NOTE | 2020-01-02 12:46 | DS ---
Physical Examination Vital Signs: Vital Signs Temperature 98.6 F 01/02/20 10:12 Pulse Rate 85 01/02/20 10:12 Respiratory Rate 18 01/02/20 10:12 Blood Pressure 116/67 01/02/20 10:12 O2 Sat by Pulse Oximetry (%) 97 01/01/20 20:36 Constitutional: Yes: No Distress, Calm Cardiovascular: Yes: Regular Rate and Rhythm Respiratory: Yes: CTA Bilaterally Gastrointestinal: Yes: Normal Bowel Sounds, Soft. No: Tenderness Edema: No Labs: CBC, BMP 01/02/20 06:30 01/01/20 05:25 Discharge Summary Problems reviewed: Yes Reason For Visit: LUMBAR SPONDYLOSIS Current Active Problems Fusion of spine, thoracolumbar region (Acute) Hepatitis C (Acute) History of cholecystectomy (Acute) History of penile implant (Acute) S/P laminectomy (Acute) Hospital Course: PATIENT UNDERWENT ON 12/26 Operation: T12-S2 Laminectomies with L34, L45 and L5S1 transpedicular decompression and osteotomies and deformity correction T12-S2 pedicle screw fusion with athrodesis and interbody cage at L5-S1 POST OP -- HE WAS FEBRILE ON 12/29, 12/30 RECEIVED POST OP ANTIBIOTICS URINE AND BLOOD CULTURES AND CXR NEGATIVE PT IS ABLE TO AMBULATE WITH ASSISTANCE ADRIANE DRAIN REMOVED YESTERDAY -- NO SOAKAGE OF DRESSING TODAY LABS GOOD STABLE FOR DC TO STR Condition: Guarded - Instructions Diet, Activity, Other Instructions: Post Operative Instructions Physical Activity Resume your normal everyday activity as tolerated. No heavy lifting or exercise until seen by your surgeon. You may walk unlimited amounts and climb stairs. You may resume driving the car when you feel safe and comfortable behind the wheel and you are no longer wearing your brace. Do not operate a vehicle while taking narcotic medication. Brace If you had back surgery, wear TLSO Brace whenever out of bed. May remove to sleep and shower. Wound Care Keep your incision clean, dry and covered at all times. Apply an occlusive dressing (Saran wrap or Tegaderm) when showering to avoid getting your incision wet. Do not submerge incision or apply ointments or creams. The kathryn will be removed in the office in 10-14 days post-op. Diet There are no dietary restrictions. Eat healthy, high-fiber foods. Drink 6-8 glasses of liquid each day. This will assist in keeping your bowels regular. Pain Management You may take Tylenol or acetaminophen. Any pain prescription medication ordered should be taken as prescribed for moderate to severe pain. Avoid any ibuprofen (Motrin, Advil, Aleve, Toradol, etc) for 3 months unless otherwise discussed with your surgeon. Call Dr Granados for any of the following: Severe pain not relieved by medication Fever of 101 or higher Excessive bleeding or drainage on dressing Inability to urinate ISTOP: [id number] Any chest pain or shortness of breath, seek Emergency Care. Call the office to confirm a post-operative appointment for 2-3 weeks post-op Stevan Chaney MD [facility] [address] [place] [address] Referrals: Stevan Chaney MD, [facility] [Staff Physician] - 1 Week Roger Couch MD [Staff Physician] - 1 Week Disposition: HOME - Home Medications Comprehensive Discharge Medication List: Ambulatory Orders Ascorbic Acid [Vitamin C -] 500 mg PO BID 07/11/17 Cholecalciferol (Vitamin D3) [Vitamin D3 -] 1,000 unit PO DAILY 07/11/17 Hydrochlorothiazide [Hctz -] 25 mg PO DAILY 07/11/17 Atorvastatin Ca [Lipitor] 40 mg PO HS 12/26/19 Bifidobacterium Infantis [Align] 10.5 mg PO DAILY 12/26/19 Calcium Carbonate/Vitamin D3 [Calcium 500 + Vit D Caplet] 1 each PO DAILY 12/26/19 Clonazepam 1 mg PO BID 12/26/19 Dicyclomine HCl 10 mg PO BID 12/26/19 Gabapentin 200 mg PO BID 12/26/19 Multivitamin [One-Daily Multi-Vitamin] 1 each PO DAILY 12/26/19 Pantoprazole Sodium [Protonix -] 20 mg PO DAILY 12/26/19 Tamsulosin HCl 0.4 mg PO DAILY 12/26/19 Venlafaxine HCl ER [Effexor Xr -] 75 mg PO BID 12/26/19
--- NOTE | 2020-01-02 14:18 | PN ---
Progress Note (short form) - Note Progress Note: Chief Complaint: atrial arrhythmia History of Present Illness: denies sob, cp, palp, dizzy Current Medications Generic Name Dose Route Start Last Admin Trade Name Matq PRN Reason Stop Dose Admin Acetaminophen 650 mg 12/31/19 18:58 01/02/20 05:01 Tylenol - PO 650 mg Q6H PRN Administration FEVER Ascorbic Acid 500 mg 01/02/20 10:00 01/02/20 11:10 Vitamin C - PO 500 mg BID TAMMY Administration Atorvastatin Calcium 40 mg 01/02/20 22:00 Lipitor - PO HS TAMMY Clonazepam 1 mg 01/02/20 00:42 01/02/20 11:10 Klonopin - PO 1 mg BID PRN Administration ANXIETY Diphenhydramine HCl 25 mg 01/02/20 00:42 Benadryl Injection - IVPUSH ONCE PRN FOR ITCHING Enoxaparin Sodium 40 mg 01/02/20 10:00 01/02/20 11:11 Lovenox - SQ 40 mg DAILY TAMMY Administration Hydrochlorothiazide 25 mg 01/02/20 10:00 01/02/20 11:10 Hctz - PO 25 mg DAILY TAMMY Administration Multivitamins/Minerals/Vitamin C 1 tab 01/02/20 10:00 01/02/20 11:11 Tab-A-Vit - PO 1 tab DAILY TAMMY Administration Naloxone HCl 0.4 mg 01/02/20 00:42 Narcan - IVPUSH ONCE PRN Sedation Oxycodone HCl 10 mg 01/02/20 10:00 01/02/20 11:12 Oxycontin - PO Not Given BID TAMMY Pantoprazole Sodium 20 mg 01/02/20 07:00 01/02/20 06:00 Protonix - PO 20 mg ACBK TAMMY Administration Polyethylene Glycol 17 gm 01/02/20 10:00 01/02/20 11:11 Miralax (For Daily Use) - PO 17 grams DAILY TAMMY Administration Tamsulosin HCl 0.4 mg 01/02/20 08:30 01/02/20 11:10 Flomax - PO 0.4 mg 0830 TAMMY Administration Venlafaxine HCl 75 mg 01/02/20 10:00 01/02/20 11:10 Effexor Xr - PO 75 mg BID TAMMY Administration Vital Signs Period Temp Pulse Resp BP Sys/Henry Pulse Ox Last 24 Hr 98.6 F-100.2 F 80-88 18-20 116-150/51-80 97 Constitutional: Yes: Well Nourished, No Distress, Calm Cardiovascular: Yes: Regular Rate and Rhythm. No: JVD, Gallop, Murmur Respiratory: Yes: Regular, CTA Bilaterally. No: Accessory Muscle Use abd: soft, ND, NT + bs Extremities: No: Cold Edema: No (SCDs) Neurological: Yes: Alert. No: Lethargy, Seizure Psychiatric: No: Agitated no jaundice, diaphoresis Assessment/Plan tele: SR, brief atrial run echo 12/2019: nl lv/rv, no sig valve path a/p: 74 m hx htn, hld, hx pacs and pvcs, svt s/p ablation 2017, s/p elective spine surgery. sinus with frequent APCs, PSVT, nonsustained VT: -tele benign -echo here unremarkable htn: -cont current meds hld: -cont home med svt s/p ablation: -has been in sr here, brief run PSVT on tele s/p laminectomy: -Post op management as per Critical Care an Neurosurgery - plan for rehab
[2020-01-02] MEDS ORDERED: ATORVASTATIN CA 40 MG TABLET (FP) PO SCH (22:00)
[2020-01-02] MEDS ORDERED: CHLORHEXIDINE GLUCONATE 4% CLEANSER FOR DECOLONIZATION TP SCH (22:00)
[2020-01-03] MEDS: ACETAMINOPHEN 325 MG TABLET (FP) PO PRN (06:39)
[2020-01-03] MEDS: PANTOPRAZOLE 20 MG TABLET PO SCH (06:40)
[2020-01-03] MEDS: TAMSULOSIN HCL 0.4 MG CAP PO SCH (08:23)
[2020-01-03] MEDS: MULTIVITAMINS (DAILY MVI) TABLET (FP) PO SCH (10:06)
[2020-01-03] MEDS: ASCORBIC ACID 500 MG TABLET (FP) PO SCH (10:06)
[2020-01-03] MEDS: VENLAFAXINE HCL 75 MG E.R. CAPSULES PO SCH (10:06)
[2020-01-03] MEDS: oxyCODONE HCL 10 MG SUSTAINED ACTING TABLET PO SCH (10:07)
[2020-01-03] MEDS: HYDROCHLOROTHIAZIDE 25 MG TABLET (FP) PO SCH (10:07)
[2020-01-03] MEDS: ENOXAPARIN NA (PORCINE) 40 MG/0.4 ML DISP.SYRIN SQ SCH (10:07)
[2020-01-03] MEDS: POLYETHYLENE GLYCOL 3350 119 GM BTL PO SCH (10:12)
[2020-01-03] MEDS: clonazePAM 0.5 MG TABLET PO PRN (10:21)
--- NOTE | 2020-01-03 11:56 | PN ---
Progress Note (short form) - Note Progress Note: History of Present Illness: denies sob, cp, palp, dizzy Current Medications Generic Name Dose Route Start Last Admin Trade Name Freq PRN Reason Stop Dose Admin Acetaminophen 650 mg 12/31/19 18:58 01/03/20 06:39 Tylenol - PO 650 mg Q6H PRN Administration FEVER Ascorbic Acid 500 mg 01/02/20 10:00 01/03/20 10:06 Vitamin C - PO 500 mg BID TAMMY Administration Atorvastatin Calcium 40 mg 01/02/20 22:00 01/02/20 21:30 Lipitor - PO 40 mg HS TAMMY Administration Clonazepam 1 mg 01/02/20 00:42 01/03/20 10:21 Klonopin - PO 1 mg BID PRN Administration ANXIETY Diphenhydramine HCl 25 mg 01/02/20 00:42 Benadryl Injection - IVPUSH ONCE PRN FOR ITCHING Enoxaparin Sodium 40 mg 01/02/20 10:00 01/03/20 10:07 Lovenox - SQ 40 mg DAILY TAMMY Administration Hydrochlorothiazide 25 mg 01/02/20 10:00 01/03/20 10:07 Hctz - PO 25 mg DAILY TAMMY Administration Multivitamins/Minerals/Vitamin C 1 tab 01/02/20 10:00 01/03/20 10:06 Tab-A-Vit - PO 1 tab DAILY TAMMY Administration Naloxone HCl 0.4 mg 01/02/20 00:42 Narcan - IVPUSH ONCE PRN Sedation Oxycodone HCl 10 mg 01/02/20 10:00 01/03/20 10:07 Oxycontin - PO 10 mg BID TAMMY Administration Pantoprazole Sodium 20 mg 01/02/20 07:00 01/03/20 06:40 Protonix - PO 20 mg ACBK TAMMY Administration Polyethylene Glycol 17 gm 01/02/20 10:00 01/03/20 10:12 Miralax (For Daily Use) - PO 17 grams DAILY TAMMY Administration Tamsulosin HCl 0.4 mg 01/02/20 08:30 01/03/20 08:23 Flomax - PO 0.4 mg 0830 TAMMY Administration Venlafaxine HCl 75 mg 01/02/20 10:00 01/03/20 10:06 Effexor Xr - PO 75 mg BID TAMMY Administration Vital Signs Period Temp Pulse Resp BP Sys/Henry Pulse Ox Last 24 Hr 98.2 F-99.5 F 62-95 18-20 101-148/52-79 96-97 Constitutional: Yes: Well Nourished, No Distress, Calm Cardiovascular: Yes: Regular Rate and Rhythm. No: JVD, Gallop, Murmur Respiratory: Yes: Regular, CTA Bilaterally. No: Accessory Muscle Use abd: soft, ND, NT + bs Extremities: No: Cold Edema: No (SCDs) Neurological: Yes: Alert. No: Lethargy, Seizure Psychiatric: No: Agitated no jaundice, diaphoresis CBC, BMP 01/02/20 06:30 01/01/20 05:25 Assessment/Plan tele: SR, brief atrial run echo 12/2019: nl lv/rv, no sig valve path a/p: 74 m hx htn, hld, hx pacs and pvcs, svt s/p ablation 2017, s/p elective spine surgery. sinus with frequent APCs, PSVT, nonsustained VT: -tele benign -echo here unremarkable htn: -cont current meds hld: -cont home med svt s/p ablation: -has been in sr here, brief run PSVT on tele s/p laminectomy: -Post op management as per Critical Care an Neurosurgery - plan for rehab
--- NOTE | 2020-01-03 13:20 | PN ---
Progress Note (short form) - Note Progress Note: POD#7 Laminectomy had low grade fever yesterday low grade at 4pm and 8 pm currently afebrile no diarrhea, no abd pain back pain controlled no cough or SOB Vital Signs - 24 hr 01/02/20 01/02/20 01/02/20 14:00 16:30 20:26 Temperature 98.5 F 99.4 F 99.5 F Pulse Rate 95 H 92 H 87 Respiratory 18 18 18 Rate Blood Pressure 101/56 L 114/52 L 148/79 O2 Sat by Pulse Oximetry (%) 01/02/20 01/03/20 01/03/20 21:00 06:00 09:00 Temperature 98.9 F Pulse Rate 91 H Respiratory 18 Rate Blood Pressure 124/69 O2 Sat by Pulse 97 96 Oximetry (%) 01/03/20 09:18 Temperature 98.2 F Pulse Rate 62 Respiratory 20 Rate Blood Pressure 133/62 O2 Sat by Pulse Oximetry (%) Current Medications Generic Name Dose Route Start Last Admin Trade Name Freq PRN Reason Stop Dose Admin Acetaminophen 650 mg 12/31/19 18:58 01/03/20 06:39 Tylenol - PO 650 mg Q6H PRN Administration FEVER Ascorbic Acid 500 mg 01/02/20 10:00 01/03/20 10:06 Vitamin C - PO 500 mg BID TAMMY Administration Atorvastatin Calcium 40 mg 01/02/20 22:00 01/02/20 21:30 Lipitor - PO 40 mg HS TAMMY Administration Clonazepam 1 mg 01/02/20 00:42 01/03/20 10:21 Klonopin - PO 1 mg BID PRN Administration ANXIETY Diphenhydramine HCl 25 mg 01/02/20 00:42 Benadryl Injection - IVPUSH ONCE PRN FOR ITCHING Enoxaparin Sodium 40 mg 01/02/20 10:00 01/03/20 10:07 Lovenox - SQ 40 mg DAILY TAMMY Administration Hydrochlorothiazide 25 mg 01/02/20 10:00 01/03/20 10:07 Hctz - PO 25 mg DAILY TAMMY Administration Multivitamins/Minerals/Vitamin C 1 tab 01/02/20 10:00 01/03/20 10:06 Tab-A-Vit - PO 1 tab DAILY TAMMY Administration Naloxone HCl 0.4 mg 01/02/20 00:42 Narcan - IVPUSH ONCE PRN Sedation Oxycodone HCl 10 mg 01/02/20 10:00 01/03/20 10:07 Oxycontin - PO 10 mg BID TAMMY Administration Pantoprazole Sodium 20 mg 01/02/20 07:00 01/03/20 06:40 Protonix - PO 20 mg ACBK TAMMY Administration Polyethylene Glycol 17 gm 01/02/20 10:00 01/03/20 10:12 Miralax (For Daily Use) - PO 17 grams DAILY TAMMY Administration Tamsulosin HCl 0.4 mg 01/02/20 08:30 01/03/20 08:23 Flomax - PO 0.4 mg 0830 TAMMY Administration Venlafaxine HCl 75 mg 01/02/20 10:00 01/03/20 10:06 Effexor Xr - PO 75 mg BID TAMMY Administration S1 S2 RRR Lungs decreased Abd- soft, obese, NT no edema no soakage of dressing A/P Problem List - Problems (1) S/P laminectomy Assessment/Plan: pain control- may give tylenol -- try to use Oxycodone sparingly Pt eval Back brace Problems reviewed: Yes Code(s): Z98.890 - OTHER SPECIFIED POSTPROCEDURAL STATES (2) Hepatitis C Assessment/Plan: s/p treatment Problems reviewed: Yes Code(s): B19.20 - UNSPECIFIED VIRAL HEPATITIS C WITHOUT HEPATIC COMA (3) History of cholecystectomy Assessment/Plan: no active issues Problems reviewed: Yes Code(s): Z90.49 - ACQUIRED ABSENCE OF OTHER SPECIFIED PARTS OF DIGESTIVE TRACT (4) History of penile implant Assessment/Plan: No active issues Problems reviewed: Yes Code(s): Z96.0 - PRESENCE OF UROGENITAL IMPLANTS (5) History of cardiac radiofrequency ablation Assessment/Plan: cardiology following Code(s): Z98.890 - OTHER SPECIFIED POSTPROCEDURAL STATES (6) Hypertension Assessment/Plan: on meds Problems reviewed: Yes Code(s): I10 - ESSENTIAL (PRIMARY) HYPERTENSION (7) Generalized anxiety disorder Problems reviewed: Yes Code(s): F41.1 - GENERALIZED ANXIETY DISORDER (8) PTSD (post-traumatic stress disorder) Problems reviewed: Yes Code(s): F43.10 - POST-TRAUMATIC STRESS DISORDER, UNSPECIFIED Anemia-->monitor , no active bleeding hypokalemia-- replace lytes, replace Phosphorus low grade Fever-- currently afebrile pt received tylenol for pain at 5pm and 10 pm yesterday and today at around 6 am --> he is getting Tylenol instead of narcotics as it makes him confused cultures are negative normal WBC CXR normal on DVT prophylaxis patient is stable for discharge to rehab Problem List - Problems (1) Hepatitis C Code(s): B19.20 - UNSPECIFIED VIRAL HEPATITIS C WITHOUT HEPATIC COMA (2) S/P laminectomy Code(s): Z98.890 - OTHER SPECIFIED POSTPROCEDURAL STATES (3) History of back surgery Code(s): Z98.890 - OTHER SPECIFIED POSTPROCEDURAL STATES (4) Hypercholesterolemia Code(s): E78.00 - PURE HYPERCHOLESTEROLEMIA, UNSPECIFIED (5) Hypertension Code(s): I10 - ESSENTIAL (PRIMARY) HYPERTENSION (6) PTSD (post-traumatic stress disorder) Code(s): F43.10 - POST-TRAUMATIC STRESS DISORDER, UNSPECIFIED
[2020-01-03 16:55] VITALS: BP 108/60; PULSE 99; TEMP 97.4
--- NOTE | 2020-01-14 14:21 | SURG ---
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 Machine Operator: Jessica Downs PA-C Date of Service: 12/27/19 Diagnosis: Lumbar degenerative scoliosis Procedure: 1) T12 Laminectomies 2) Bilateral reoperative L1 Laminectomies 3) Bilateral reoperative L2 Laminectomies 4) Bilateral reoperative L3 Laminectomies 5) Bilateral reoperative L4 Laminectomies 6) Bilateral reoperative L5 Laminectomies 7) Bilateral reoperative S1 Laminectomies 8) L5S1 transpedicular approach 9) Fluroscopy 10) Microdissection 11) Posterior/Lateral arthrodesis T12L1 12) Posterior/Lateral arthrodesis L12 13) Posterior/Lateral arthrodesis L23 14) Posterior/Lateral arthrodesis L34 15) Posterior/Lateral arthrodesis L45 16) Interbody and posterior/Lateral arthrodesis L5S1 17) Interbody cage L5S1 18) Spinopelvic arthrodesis 19) T12-S2 posterior segmental instrumentation (technically challenging) 20) Local autograft 21) T12 Osteotomy 22) L1 Osteotomy 23) L5 osteotomy 24) S1 osteotomy 25) deformity correction 26) bilateral soft tissue advancement flaps (50cm^2) 27) Removal of spinal cord stimulator (electrode- technically challenging) 28) Removal of spinal cord stimulator pulse generator I was present for the entirety of the operative procedure. For further detail, please refer to operative report. Visit type - Case Type Case Type: Scheduled - Emergency Emergency Visit: Yes ED Registration Date: 12/27/19 Care time: The patient presented to the Emergency Department on the above date and was hospitalized for further evaluation of their emergent condition. - New patient This patient is new to me today: Yes Date on this admission: 12/27/19
== END 2020-01-03 18:02 | disposition home or self-care (01) | DRG 454 ==
LOC: J2C 12-27 05:02 → JICU 12-27 21:39 → J8W 01-01 18:39
PROVIDERS: ADMIT Internal Medicine; ATTEND Internal Medicine
PROC: 0SG3071 Fusion of Lumbosacral Joint with Autologous Tissue Substitute, Posterior Approach, Posterior Column, Open Approach (ICD-10-PCS; 2019-12-27)
PROC: 0SG1071 Fusion of 2 or more Lumbar Vertebral Joints with Autologous Tissue Substitute, Posterior Approach, Posterior Column, Open Approach (ICD-10-PCS; 2019-12-27)
PROC: 0RGA071 Fusion of Thoracolumbar Vertebral Joint with Autologous Tissue Substitute, Posterior Approach, Posterior Column, Open Approach (ICD-10-PCS; 2019-12-27)
PROC: 0ST40ZZ Resection of Lumbosacral Disc, Open Approach (ICD-10-PCS; 2019-12-27)
PROC: 00PU0MZ Removal of Neurostimulator Lead from Spinal Canal, Open Approach (ICD-10-PCS; 2019-12-27)
PROC: 0JX70ZB Transfer Back Subcutaneous Tissue and Fascia with Skin and Subcutaneous Tissue, Open Approach (ICD-10-PCS; 2019-12-27)
PROC: 0JPT0MZ Removal of Stimulator Generator from Trunk Subcutaneous Tissue and Fascia, Open Approach (ICD-10-PCS; 2019-12-27)
PROC: B01BZZZ Fluoroscopy of Spinal Cord (ICD-10-PCS; 2019-12-27)
PROC: 30233N1 Transfusion of Nonautologous Red Blood Cells into Peripheral Vein, Percutaneous Approach (ICD-10-PCS; 2019-12-27)
PROC: 0SG30AJ Fusion of Lumbosacral Joint with Interbody Fusion Device, Posterior Approach, Anterior Column, Open Approach (ICD-10-PCS; principal; 2019-12-27 08:00)
DX: M41.86 Other forms of scoliosis, lumbar region (principal); I47.1 Supraventricular tachycardia; M47.896 Other spondylosis, lumbar region; D72.829 Elevated white blood cell count, unspecified; R00.8 Other abnormalities of heart beat; E78.00 Pure hypercholesterolemia, unspecified; I10 Essential (primary) hypertension; R06.89 Other abnormalities of breathing; F43.10 Post-traumatic stress disorder, unspecified; E87.6 Hypokalemia; E78.5 Hyperlipidemia, unspecified; B19.20 Unspecified viral hepatitis C without hepatic coma; F41.8 Other specified anxiety disorders; E66.9 Obesity, unspecified; Z68.29 Body mass index [BMI] 29.0-29.9, adult; R50.9 Fever, unspecified; D64.9 Anemia, unspecified
CPT/HCPCS: 36415; 36430; 36511; 71045-TC-FY; 72131-TC; 76000-TC-FY; 80048; 80053; 81003; 83735; 84100; 85025; 85027; 86850; 86900; 86901; 86922; 87040; 87086; 88300-TC; 93005; 93010; 93306-TC; 94002; 94760; 97116-GP; 97162-GP; J0131; J1644; P9038; P9058; U0003

== ENCOUNTER 2022-01-19 04:19 | Day surgery (SDC) | payer OTHER ==
[2022-01-18 12:51] VITALS: BMI 28.2
[2022-01-19] MEDS ORDERED: TRIAMCINOLONE ACET 40MG/1ML VIAL ONE ×2 (09:24→09:32)
[2022-01-19 11:23] VITALS: TEMP 97.1
[2022-01-19 11:27] VITALS: BP 154/66; PULSE 83
== END 2022-01-19 10:45 | disposition home or self-care (01) ==
LOC: JASU-SURG 04:19
PROVIDERS: ATTEND Pain Medicine Pain Medicine
PROC: 3E0U3BZ Introduction of Anesthetic Agent into Joints, Percutaneous Approach (ICD-10-PCS; 2022-01-19)
PROC: 3E0U33Z Introduction of Anti-inflammatory into Joints, Percutaneous Approach (ICD-10-PCS; principal; 2022-01-19 09:00)
DX: M53.3 Sacrococcygeal disorders, not elsewhere classified (principal)
CPT/HCPCS: 76000-TC-FY

== ENCOUNTER 2022-03-02 04:14 | Day surgery (SDC) | payer OTHER ==
[2022-03-01 14:52] VITALS: BMI 27.9
[~2022-03-02 04:14] MED LIST: LIDOCAINE HCL 1% PRESERVATIVE FREE - 30ML VIAL IJ ONE
[2022-03-02 07:04] VITALS: RESP 20
[2022-03-02] MEDS ORDERED: LIDOCAINE HCL/PF 1% SDV 5ML VIAL ONE (07:08)
[2022-03-02] MEDS ORDERED: LIDOCAINE HCL 1% PRESERVATIVE FREE - 30ML VIAL IJ ONE (08:20)
[2022-03-02 09:48] VITALS: BP 130/70; PULSE 80; TEMP 98
== END 2022-03-02 09:48 | disposition home or self-care (01) ==
LOC: JASU-SURG 04:14
PROVIDERS: ATTEND Pain Medicine Pain Medicine
PROC: 01HY3MZ Insertion of Neurostimulator Lead into Peripheral Nerve, Percutaneous Approach (ICD-10-PCS; principal; 2022-03-02 08:00)
DX: G89.4 Chronic pain syndrome (principal)
CPT/HCPCS: 64555; C1778; 76000-TC-FY

== ENCOUNTER 2022-06-25 04:26 | Day surgery (SDC) | payer OTHER ==
[2022-06-21 12:32] VITALS: BMI 27.9
[~2022-06-25 04:26] MED LIST changes: +LIDOCAINE 1% P/F 10 MG/ML VIAL INF ONE; +LIDOCAINE 1% P/F 10 MG/ML VIAL PNB ONE; -LIDOCAINE HCL 1% PRESERVATIVE FREE - 30ML VIAL IJ ONE
[2022-06-25] MEDS ORDERED: LIDOCAINE HCL/PF 1% SDV 5ML VIAL ONE ×2 (07:39→13:21)
[2022-06-25 11:49] VITALS: RESP 20
[2022-06-25] MEDS ORDERED: FENTANYL CITRATE/PF 50 MCG/ML VIAL ONE (13:58)
[2022-06-25] MEDS ORDERED: MIDAZOLAM HCL 2 MG/2 ML SINGLE DOSE VIAL ONE (13:59)
[2022-06-25] MEDS ORDERED: ceFAZolin SODIUM 1 GM VIAL ONE (14:09)
[2022-06-25] MEDS ORDERED: ceFAZolin 2 GRAM PREMIX BAG IVPB ONE (14:10)
[2022-06-25] MEDS ORDERED: LIDOCAINE 1% P/F 10 MG/ML VIAL INF ONE ×2 (14:25)
[2022-06-25 15:52] VITALS: BP 158/75; PULSE 72; TEMP 98
== END 2022-06-25 16:55 | disposition home or self-care (01) ==
LOC: JASU-SURG 04:26
PROVIDERS: ATTEND Pain Medicine Pain Medicine
PROC: 01HY3MZ Insertion of Neurostimulator Lead into Peripheral Nerve, Percutaneous Approach (ICD-10-PCS; principal; 2022-06-25 13:00)
DX: G89.4 Chronic pain syndrome (principal)
CPT/HCPCS: 64555; C1897

== ENCOUNTER 2022-07-27 04:35 | Day surgery (SDC) | payer OTHER ==
[2022-07-22 11:26] VITALS: BMI 27.9
[~2022-07-27 04:35] MED LIST changes: +BUPIVACAINE HCL/PF 0.25% (2.5MG/ML) 10 ML VIAL IJ ONE; -LIDOCAINE 1% P/F 10 MG/ML VIAL PNB ONE; +LIDOCAINE HCL 1% PRESERVATIVE FREE - 30ML VIAL IJ ONE; +ceFAZolin SODIUM 1 GM VIAL IVPB ONE
[2022-07-27] MEDS ORDERED: LIDOCAINE HCL/PF 1% SDV 5ML VIAL ONE ×2 (07:38→14:41)
[2022-07-27] MEDS ORDERED: LIDOCAINE HCL 1% PRESERVATIVE FREE - 30ML VIAL IJ ONE (14:25)
[2022-07-27] MEDS ORDERED: BUPIVACAINE HCL/PF 0.25% (2.5MG/ML) 10 ML VIAL IJ ONE (14:25)
[2022-07-27] MEDS ORDERED: PROPOFOL 20 ML ONE (14:36)
[2022-07-27] MEDS ORDERED: MIDAZOLAM HCL 2 MG/2 ML SINGLE DOSE VIAL ONE (14:40)
[2022-07-27] MEDS ORDERED: BUPIVACAINE HCL/PF 0.25% (2.5MG/ML) 10 ML VIAL ONE (14:41)
[2022-07-27] MEDS ORDERED: ceFAZolin SODIUM 1 GM VIAL IVPB ONE (14:41)
[2022-07-27] MEDS ORDERED: LIDOCAINE 1% P/F 10 MG/ML VIAL INF ONE ×2 (14:53→14:54)
[2022-07-27 16:44] VITALS: BP 161/56; PULSE 63; RESP 18; TEMP 97.3
== END 2022-07-27 17:05 | disposition home or self-care (01) ==
LOC: JASU-SURG 04:35
PROVIDERS: ATTEND Pain Medicine Pain Medicine
PROC: 0JH70BZ Insertion of Single Array Stimulator Generator into Back Subcutaneous Tissue and Fascia, Open Approach (ICD-10-PCS; 2022-07-27)
PROC: 01HY3MZ Insertion of Neurostimulator Lead into Peripheral Nerve, Percutaneous Approach (ICD-10-PCS; principal; 2022-07-27 13:30)
DX: G89.4 Chronic pain syndrome (principal); M96.1 Postlaminectomy syndrome, not elsewhere classified
CPT/HCPCS: 64555; 64590; C1778; L8679; 76000-TC-FY

== ENCOUNTER 2022-10-19 04:50 | Day surgery (SDC) | payer OTHER ==
[2022-10-18 15:29] VITALS: BMI 29.0
[~2022-10-19 04:50] MED LIST changes: -LIDOCAINE HCL 1% PRESERVATIVE FREE - 30ML VIAL IJ ONE; -ceFAZolin SODIUM 1 GM VIAL IVPB ONE
[2022-10-19] MEDS ORDERED: LIDOCAINE HCL/PF 1% SDV 5ML VIAL ONE (07:37)
[2022-10-19] MEDS ORDERED: MIDAZOLAM HCL 2 MG/2 ML SINGLE DOSE VIAL ONE ×3 (14:08→15:28)
[2022-10-19] MEDS ORDERED: BUPIVACAINE HCL/PF 0.25% (2.5MG/ML) 10 ML VIAL ONE (14:18)
[2022-10-19] MEDS ORDERED: ceFAZolin SODIUM 1 GM VIAL IVPB ONE (14:24)
[2022-10-19] MEDS ORDERED: ceFAZolin SODIUM 1 GM VIAL ONE (14:24)
[2022-10-19] MEDS ORDERED: LIDOCAINE 1% P/F 10 MG/ML VIAL INF ONE (14:34)
[2022-10-19] MEDS ORDERED: BUPIVACAINE HCL/PF 0.25% (2.5MG/ML) 10 ML VIAL IJ ONE (14:34)
[2022-10-19] MEDS ORDERED: DEXAMETHASONE SOD PHOSPHATE 4 MG/1 ML VIAL ONE (14:37)
[2022-10-19] MEDS ORDERED: ONDANSETRON 4 MG/2 ML VIAL ONE (14:37)
[2022-10-19] MEDS ORDERED: ACETAMINOPHEN 500 MG TABLET (FP) PO PRN (16:24)
[2022-10-19 19:21] VITALS: RESP 18
[2022-10-19 19:24] VITALS: BP 167/87; PULSE 84; TEMP 97.2
== END 2022-10-19 18:55 | disposition home or self-care (01) ==
LOC: JASU-SURG 04:50
PROVIDERS: ATTEND Pain Medicine Pain Medicine
PROC: 0JWT0MZ Revision of Stimulator Generator in Trunk Subcutaneous Tissue and Fascia, Open Approach (ICD-10-PCS; principal; 2022-10-19 14:45)
DX: T85.121A Displacement of implanted electronic neurostimulator of peripheral nerve electrode (lead), initial encounter (principal); Y82.8 Other medical devices associated with adverse incidents; Y92.9 Unspecified place or not applicable; M96.1 Postlaminectomy syndrome, not elsewhere classified; G89.4 Chronic pain syndrome
CPT/HCPCS: 64590; C1778; L8679; 76000-TC-FY; 94760